=== PATIENT | female | born 1970 | race Caucasian/White ===

== ENCOUNTER 2018-07-19 10:46 | Observation (INO) | payer OTHER ==
[2018-07-19] MEDS ORDERED: Morphine 2 MG/ML SYRINGE ONE (11:17)
[2018-07-19 11:21] LABS: #Basophils 0.1 thou/uL (0.0-0.2); #Eosinphils 0.3 thou/uL (0.0-0.7); #Lymphocytes 3.4 thou/uL (1.20-3.40); #Monocytes 0.7 thou/uL (0.11-0.59); #Neutrophils 5.6 thou/uL (1.40-6.50); %Basophils 0.7 % (0.0-1.0); %Eosinophils 3.2 % (0.0-10.0); %Lymphocytes 33.9 % (21.0-51.0); %Monocytes 6.8 % (0.0-10.0); %Neutrophils 55.5 % (42.0-75.0); Hemoglobin 11.9 g/dL (12.0-16.0); Mean Corpuscular HGB CONC 31.8 g/dL (32.0-36.0); Mean Corpuscular Volume 75.5 fL (78.0-98.0); Mean Platelet Volume 7.2 fL (7.4-10.4); Platelet Count 421 thou/uL (130-400); RBC Distribution Width 14.5 % (11.5-14.5); Red Blood Cell (RBC) Count 4.96 mill/uL (4.20-5.40)
[2018-07-19 11:27] LABS: INR-International Normal Ratio 1.1; PTT 31.7 SEC (22.9-36.1); Prothrombin Time 14.7 SEC (12.0-14.7)
--- NOTE | 2018-07-19 11:45 | ULT ---
Left lower extremity venous Doppler ultrasound: 07/19/2018 COMPARISON: None HISTORY: Left lower extremity pain, assess for DVT TECHNIQUE: Multiplanar grayscale sonographic imaging of the venous structures of the left lower extre mity obtained with color flow and spectral analysis FINDINGS: Left common femoral vein, greater saphenous vein, profunda femoral vein, femoral vein, popl iteal vein, and posterior tibial vein are patent. Normal blood flow, augmentation, and compression within the deep venous system on the left. No evidence for deep venous thrombosis. IMPRESSION: No evidence for deep venous thrombosis of the left lower extremity.
[2018-07-19 11:55] LABS: ALT (SGPT) 21 U/L (8-55); AST (SGOT) 17 U/L (5-34); Albumin 3.2 g/dL (3.5-5.0); Alkaline Phosphatase 151 U/L (40-150); Anion Gap 15 mmol/L (10-20); BUN (Urea Nitrogen) 10 mg/dL (7.0-18.7); Bilirubin, Total 0.6 mg/dL (0.2-1.2); Calc. Creatinine Clearance 0 mL/min (70-130); Calcium 9.3 mg/dL (7.8-10.44); Carbon Dioxide 23 mmol/L (22-29); Chloride 100 mmol/L (98-107); Estimated GFR-MDRD 70; Globulin 4.4 g/dL (2.4-3.5); Glucose 227 mg/dL (70-105); Potassium 4.5 mmol/L (3.5-5.1); Protein, Total 7.6 g/dL (6.0-8.3); Sodium 133 mmol/L (136-145)
[2018-07-19 12:07] LABS: CKMB 1.3 ng/mL (0-6.6)
--- NOTE | 2018-07-19 12:10 | CT ---
CT arteriogram chest with IV contrast and 3-D MIPS imaging HISTORY: Chest pain. Dyspnea. COMPARISON: 10/24/2002. FINDINGS: There is good contrast opacification of the pulmonary arteries and thoracic aorta with norm al origin the great vessels. Postoperative changes of the mediastinum are apparent. Chronic appearing widening of the sternotomy. Calcification in coronary arteries. The somewhat irregular 0.9 cm nodule at the anterior lateral aspect of the right upper lobe is stable compared to the 2003 exam. Old bilateral rib fractures are apparent. At the left posterolateral lung base, peripheral interstitial thickening along the bronchovascular bu ndles has progressed somewhat since the 2003 study. Minimal left pleural fluid. IMPRESSION: No CT evidence of pulmonary embolus. Atherosclerosis. Interval (long-term) increase in prominence of peripheral interstitial thickening at the left posteri or lung base. Right upper lobe peripheral nodule is stable.
[2018-07-19] MEDS ORDERED: Aspirin 325 MG TAB ONE ×2 (13:04→13:07)
--- NOTE | 2018-07-19 13:13 | PDOC.FPRHP ---
- History of Present Illness Chief Complaint: SOB History of Present Illness: 48 yo F with OA, DM1, RA, CAD s/p 3V CABG sent from clinic due to concern for PE. Patient tachycardic in clinic and SOB. Pt has had dry cough for past week, unimproved with OTC meds. Subjective fevers, chills, SOB. Chest pain associated with cough. Also reports rhinorrhea, no facial tenderness. Has a history of RA in which she has been on 5mg prednisone for. Endorses dec po intake, nausea, and emesis x3. Takes all her meds. Denies history of heart failure but had [place] s/p 3V CABG 3 yrs ago. Pt follows with Dr. Fang, hasn't seen him for 3 years. Pt reported she has episode one week ago of L chest pressure associated w/ vomiting. Resolved with taking ASA. Has had recent left lower extremity swelling. In ER was tachycardic, sinus. Received 1L bolus of NS. CTA negative for PE, Dopplers negative for DVT. ED Course: ASA, 1L NS, morphine 2mg CTA neg for PE - Allergies/Adverse Reactions Allergies Allergy/AdvReac Type Severity Reaction Status Date / Time infliximab Allergy Severe Anaphylaxis Verified 08/26/14 17:40 Sulfa (Sulfonamide Allergy Severe Verified 08/26/14 17:40 Antibiotics) sulfamethoxazole Allergy Verified 07/13/15 01:03 [From Bactrim] trimethoprim [From Bactrim] Allergy Verified 07/13/15 01:03 promethazine AdvReac Intermediate Anxiety Verified 07/19/18 20:19 adhesive AdvReac Verified 08/26/14 17:40 - Home Medications Medication Instructions Recorded Confirmed Type Flexeril 10 mg PO Q6H PRN 08/26/12 07/19/18 History predniSONE 5 mg PO BID 08/26/12 07/19/18 History Aspirin [Ecotrin Regular Strength] 325 mg PO DAILY #0 tab 09/05/12 07/19/18 Rx Potassium Chloride [K-Dur] 20 meq PO BID #0 tab 09/05/12 07/19/18 Rx Pregabalin [Lyrica] 200 mg PO BID 09/07/12 07/19/18 History Atorvastatin Calcium [Lipitor] 80 mg PO HS 09/19/13 07/19/18 History Folic Acid 1 mg PO DAILY 09/19/13 07/19/18 History Metoprolol Tartrate [Lopressor] 25 mg PO BID #0 tab 09/23/13 07/19/18 Rx metFORMIN [Glucophage] 500 mg PO BID 08/26/14 07/19/18 History Albuterol Sulfate [Proair HFA] 1 puff INH PRN PRN 07/13/15 07/19/18 History Levothyroxine Sodium 137 mcg PO DAILY #30 tablet 07/14/15 07/19/18 Rx HYDROcodone/Acetaminophen [[place] 1 - 2 each PO Q6HR PRN 07/19/18 07/19/18 History 10-325 Tablet] Amoxicillin/Potassium Clav 875 mg PO Q12HR #5 tab 07/21/18 Rx [Augmentin] Aspirin [Ecotrin Regular Strength] 325 mg PO DAILY tab 07/21/18 Rx Atorvastatin Calcium [Lipitor] 40 mg PO HS tab 07/21/18 Rx Benzonatate [Tessalon] 100 mg PO Q4H PRN cap 07/21/18 Rx Benzonatate [Tessalon] 100 mg PO TID PRN #90 cap 07/21/18 Rx - History PMHx: RA, DM1 on insulin pump, CAD s/p 3V CABG, PVD PSHx: right toe amputation FHx: DM1, rheumatoid arthritis Social: denies t/e/d - Review of Systems General: reports: fever/chills, weight/appetite/sleep changes Eyes: denies: eye pain, vision changes ENT: reports: nasal congestion, rhinorrhea Respiratory: reports: cough, shortness of breath. denies: congestion Cardiovascular: reports: chest pain, edema (of LLE). denies: palpitation, paroxysmal nocturnal dyspnea Gastrointestinal: reports: nausea, vomiting. denies: diarrhea, constipation, abdominal pain, GI bleeding Genitourinary: denies: incontinence, dysuria Skin: reports: rashes (facial). denies: itching Musculoskeletal: reports: pain, tenderness, arthritis/arthralgias Neurological: reports: weakness - Vital signs BP: 115/68, Pulse: 135, Resp: 16, Pain: 8, O2 sat: 98 on Room Air, Time: 07/19/2018 12:00. - Physical Exam Constitutional: awake, alert and oriented -Constitutional: in mild distress HEENT: normocephalic and atraumatic, PERRLA, EOMI, other (erythematous boggy nasal mucosa) -HEENT: dry mucosal membranes Neck: supple, FROM, trachea midline -Chest: tender to palpation, no lesions Heart: normal S1/S2, no murmurs/rubs/gallops -Heart: tachycardic Lungs: CTAB, no respiratory distress, good air movement, no wheezing Abdomen: soft, non-tender, bowel sounds present, no masses/distention Musculoskeletal: normal structure, normal tone Neurological: no focal deficit, CN II-XII intact -Skin: facial maxillary rash Heme/Lymphatic: no purpura, no petechia Psychiatric: good judgment and insight FMR H&P: Results - Labs Result Diagrams: 07/21/18 04:43 07/21/18 04:43 Lab results: WBC 10.0 thou/uL (4.8-10.8) 07/19/18 11:13 Hgb 11.9 g/dL (12.0-16.0) L 07/19/18 11:13 Hct 37.5 % (36.0-47.0) 07/19/18 11:13 MCV 75.5 fL (78.0-98.0) L 07/19/18 11:13 Plt Count 421 thou/uL (130-400) H 07/19/18 11:13 Neutrophils % 55.5 % (42.0-75.0) 07/19/18 11:13 Sodium 133 mmol/L (136-145) L 07/19/18 11:01 Potassium 4.5 mmol/L (3.5-5.1) 07/19/18 11:01 Chloride 100 mmol/L (98-107) 07/19/18 11:01 Carbon Dioxide 23 mmol/L (22-29) 07/19/18 11:01 BUN 10 mg/dL (7.0-18.7) 07/19/18 11:01 Creatinine 0.86 mg/dL (0.6-1.1) 07/19/18 11:01 Glucose 227 mg/dL (70-105) H 07/19/18 11:01 Calcium 9.3 mg/dL (7.8-10.44) 07/19/18 11:01 Total Bilirubin 0.6 mg/dL (0.2-1.2) 07/19/18 11:01 AST 17 U/L (5-34) 07/19/18 11:01 ALT 21 U/L (8-55) 07/19/18 11:01 Alkaline Phosphatase 151 U/L (40-150) H 07/19/18 11:01 CK-MB (CK-2) 1.3 ng/mL (0-6.6) 07/19/18 11:02 Serum Total Protein 7.6 g/dL (6.0-8.3) 07/19/18 11:01 Albumin 3.2 g/dL (3.5-5.0) L 07/19/18 11:01 - EKG Interpretation EKG: sinus tachycardia - Radiology Interpretation Other Status: report reviewed by me Additional comment: CTA negative for PE Right upper peripheral love nodule 0.9cm (stable compared to prior 2002 imaging) US - venous Status: report reviewed by me Additional comment: negative for DVT FMR H&P: A/P - Problem List (1) SOB (shortness of breath) Status: Acute Code(s): R06.02 - SHORTNESS OF BREATH (2) Elevated troponin Status: Acute Code(s): R74.8 - ABNORMAL LEVELS OF OTHER SERUM ENZYMES (3) Anxiety Status: Acute Code(s): F41.9 - ANXIETY DISORDER, UNSPECIFIED (4) Chronic pain Status: Acute Code(s): G89.29 - OTHER CHRONIC PAIN (5) 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 Status: Acute Code(s): H16.031 - CORNEAL ULCER WITH HYPOPYON, RIGHT EYE (6) Diabetes mellitus type 1 Status: Acute (7) Arthritis, rheumatoid Status: Chronic Code(s): M06.9 - RHEUMATOID ARTHRITIS, UNSPECIFIED (8) Coronary artery disease Status: Chronic Code(s): I25.10 - ATHSCL HEART DISEASE OF [place] CORONARY ARTERY W/O ANG PCTRS (9) GERD (gastroesophageal reflux disease) Status: Chronic Code(s): K21.9 - GASTRO-ESOPHAGEAL REFLUX DISEASE WITHOUT ESOPHAGITIS (10) Hx of CABG Status: Chronic (11) Hyperlipemia Status: Chronic Code(s): E78.5 - HYPERLIPIDEMIA, UNSPECIFIED (12) Hypertension Status: Chronic Code(s): I10 - ESSENTIAL (PRIMARY) HYPERTENSION (13) Hypothyroidism Status: Chronic Code(s): E03.9 - HYPOTHYROIDISM, UNSPECIFIED (14) Chest pain Status: Acute Code(s): R07.9 - CHEST PAIN, UNSPECIFIED - Plan 48 yo F with DM1, rheumatoid arthritis, OA, fibromyaglia here for typical chest pain, SOB #Typical chest pain -MSK vs. ACS r/o -EKG with no acute change, sinus tachycardia. Indeterminate troponin 0.1, continue to trend -HEART score 5, admit for ACS r/o -NST in AM since been ~3 yrs since last -Pending results can consult cardiology #Dehydration, mild -sinus tachycardia -will give 1 L bolus, if still dehydrated can start mIVF -continue to monitor #Sinus tachycardia -HR improved after 1L bolus -clinically dry, see plan above #Sinusitis -purulent drainage on exam -fever in hx -no WBC or fever but also immunosuppressed -Procal negative -daily CBC, monitor vitalsx #Subacute dry cough -post nasal drip vs. GERD vs. CHF exacerbation -Will obtain BNP, TTE if elevated -CT chest with no pleural effusions, u/l extremity swelling -flu swab, already on oral steroids so no intranasal steroids -zyrtec for congestion, tessalon perles for cough -since chronically immunosuppressed, consider respiratory fungal organism- sputum cultures -no WBC but immunosuppressed, obtain procal #LLE u/l swelling -rheumatoid flare up vs. OA vs. CHF exacerbation -dopplers neg for DVT -continue to monitor #Rheumatoid Arthritis -resume PO steroids, give stress dose now 15mg -continue daily 5mg -norco for pain #Fibromyalgia -resume home meds dvt ppx: lovenox gi ppx: pantoprazole Abx: Augmentin PCP : gil Dispo: <2 midnights Discussed w/ Dr. Estrada FMR H&P: Upper Level - Pertinent history 48 yo WF PMH RA and CAD. Present from clinic with CC of chest pain and worsening SOB. Patient is wheel chair bound and was concerned for PE. patient states she has had URI sx for the past several days and has been coughing. States it feels like an RA flair. ER: labs, EKG, CTA-Chest, lower extremity US, ASA, morphine, NS - Pertinent findings Vitals: pulse 113, Otherwise WNL GEN: Mild pain, A&Ox4 CV: Tachy, regular Pulm: CTA-B Labs: Trop 0.15->0.14, CTA Chest: No PE Venous doppler: No DVT EKG: Sinus tachycardia - Plan Date/Time: 07/19/18 1310 I, Richard Jiang MD, have evaluated this patient and agree with findings/plan as outlined by internet project manager resident. Pertinent changes/additions are listed here. 1. Atypical chest pain r/o ACS: trend trop x3, check BNP, check TTE if elevated , NM stress test. No PE on exam. continue ASA. No signs of infection. 2. Possible bacterial sinusitis: start augmentin 3. Rheumatoid arthritis: Stress dose steroids. home norco. Diet: HH, NPO at 0000 PPx: lovenox CODE: FULL Dispo: obs, tele, <2 midnights. Addendum - Attending - Attending Attestation Date/Time: 07/22/18 1038 I personally evaluated the patient and discussed the management with Dr. Shelby on 07/19/2018 at time of admission. I agree with the History, Examination, Assessment and Plan documented above with any addition or exceptions noted below.
[2018-07-19] MEDS ORDERED: Ondansetron ODT 4 MG TAB PO PRN (15:13)
[2018-07-19] MEDS ORDERED: Dextrose 50% Abboject 50 ML SYRINGE SLOW IVP PRN (15:19)
[2018-07-19] MEDS ORDERED: Dextrose 5% in Water 1,000 ML IV PRN (15:19)
[2018-07-19 15:29] LABS: Troponin I 0.144 ng/mL (< 0.028)
[2018-07-19] MEDS ORDERED: predniSONE 20 MG TAB PO ONE ×2 (16:34→17:07)
[2018-07-19] MEDS ORDERED: ISOVUE-370 76%-LOCM 1 ML ONE (17:03)
[2018-07-19] MEDS ORDERED: predniSONE 20 MG TAB PO SCH (17:07)
[2018-07-19] MEDS ORDERED: Lactated Ringer's 1,000 ML IV SCH (17:15)
[2018-07-19 18:14] LABS: Troponin I 0.139 ng/mL (< 0.028)
[2018-07-19 18:15] LABS: Cardiac Risk 4.2 (Less than 4.5)
[2018-07-19] MEDS ORDERED: HYDROcodone/Acetaminophen 10/325 mg Tablet PO PRN (18:53)
[2018-07-19] MEDS ORDERED: Cyclobenzaprine 10 MG TAB PO SCH (19:00)
[2018-07-19 19:04] VITALS: BMI 47.4
[2018-07-19] MEDS: Benzonatate 100 MG CAP PO PRN ×2 (19:57→23:57)
[2018-07-19] MEDS: Amoxicillin/Potassium Clav 875 MG TAB PO SCH (19:57)
[2018-07-19] MEDS: Atorvastatin Calcium 40 MG TAB PO SCH (19:57)
[2018-07-19] MEDS: Pregabalin 50 MG CAP PO SCH (19:58)
[2018-07-19 20:10] LABS: Hemoglobin A1c 8.6 % (4.0-6.0)
[2018-07-19] MEDS ORDERED: Famotidine 20 MG TAB PO SCH (21:00)
[2018-07-20] MEDS ORDERED: Sodium Chloride 0.9% 500 ML IVPB SCH (00:45)
[2018-07-20] MEDS ORDERED: Metoprolol Tartrate 25 MG TAB PO SCH (01:30)
[2018-07-20] MEDS ORDERED: Metoprolol Tartrate 5 MG/5 ML VIAL IVP SCH (03:00)
[2018-07-20] MEDS: Benzonatate 100 MG CAP PO PRN ×4 (04:47→20:20)
[2018-07-20] MEDS: Levothyroxine 150 MCG TAB PO SCH (04:47)
--- NOTE | 2018-07-20 06:15 | PDOC.FM ---
- Subjective Subjective: NAEO. Patient resting comfortably in bed. No complaints offered. Patient's at the bedside who stated that she slept well and was no longer having any chest pain or discomfort. - Objective MAR Reviewed: Yes Vital Signs & Weight: Vital Signs (12 hours) Temp Pulse Resp BP Pulse Ox 07/20/18 03:14 115 H 110/58 L 07/20/18 03:06 97.1 F L 128 H 20 122/66 94 L 07/19/18 23:49 97.7 F 134 H 16 125/64 93 L 07/19/18 18:15 98.1 F 141 H 20 117/72 99 Weight Weight 125.328 kg Result Diagrams: 07/20/18 07:32 07/20/18 07:32 Phys Exam - Physical Examination Constitutional: NAD HEENT: PERRLA, moist MMs Neck: full ROM Respiratory: clear to auscultation bilateral Cardiovascular: RRR Gastrointestinal: soft, non-tender, no distention Musculoskeletal: no edema Neurological: moves all 4 limbs Psychiatric: normal affect, A&O x 3 Skin: no rash, normal turgor, cap refill <2 seconds Dx/Plan (1) Chest pain Code(s): R07.9 - CHEST PAIN, UNSPECIFIED Status: Acute (2) Elevated troponin Code(s): R74.8 - ABNORMAL LEVELS OF OTHER SERUM ENZYMES Status: Acute (3) SOB (shortness of breath) Code(s): R06.02 - SHORTNESS OF BREATH Status: Acute (4) Amputated toe Code(s): Z89.429 - ACQUIRED ABSENCE OF OTHER TOE(S), UNSPECIFIED SIDE Status: Acute (5) Chronic pain Code(s): G89.29 - OTHER CHRONIC PAIN Status: Acute (6) Diabetes mellitus type 1 Status: Acute (7) Fibromyalgia Status: Chronic (8) GERD (gastroesophageal reflux disease) Code(s): K21.9 - GASTRO-ESOPHAGEAL REFLUX DISEASE WITHOUT ESOPHAGITIS Status: Chronic (9) History of coronary artery disease Code(s): Z86.79 - PERSONAL HISTORY OF OTHER DISEASES OF THE CIRCULATORY SYSTEM Status: Chronic (10) Hx of CABG Status: Chronic (11) Hyperlipemia Code(s): E78.5 - HYPERLIPIDEMIA, UNSPECIFIED Status: Chronic (12) Hypertension Code(s): I10 - ESSENTIAL (PRIMARY) HYPERTENSION Status: Chronic (13) Hypothyroidism Code(s): E03.9 - HYPOTHYROIDISM, UNSPECIFIED Status: Chronic - Plan Plan: 48 yo F with DM1, rheumatoid arthritis, OA, fibromyaglia here for typical chest pain, SOB Typical chest pain MSK vs. ACS r/o. EKG with no acute change, sinus tachycardia. HEART score 5 - Indeterminate troponin 0.158 -> 0.139 - NST in AM since been ~3 yrs since last - Pending results can consult cardiology Dehydration, mild - sinus tachycardia - s/p 1 L bolus, will start mIVF - continue to monitor Sinus tachycardia - s/p 1L bolus - clinically dry, see plan above Sinusitis - Purulent drainage on exam - Fever in hx - no WBC or fever but also immunosuppressed - Procal negative - daily CBC, monitor vitals - Augmentin started 07/19 Subacute dry cough Post nasal drip vs. GERD vs. CHF exacerbation - Will obtain BNP 513, TTE pending - CT chest with no pleural effusions, u/l extremity swelling - Flu swab positive, already on oral steroids so no intranasal steroids - Zyrtec for congestion, tessalon perles for cough - no WBC but immunosuppressed; Procal neg (0.05) LLE u/l swelling Rheumatoid flare up vs. OA vs. CHF exacerbation - dopplers neg for DVT - continue to monitor Rheumatoid Arthritis - Resume PO steroids, s/p stress dose of steroids - Continue daily 5mg - [place] for pain Fibromyalgia - resume home meds dvt ppx: lovenox gi ppx: pantoprazole Abx: Augmentin PCP: Paul Dispo: <2 midnights Addendum - Attending - Attending Attestation Date/Time: 07/20/18 1043 I personally evaluated the patient and discussed the management with Dr. Vegas. I agree with the History, Examination, Assessment and Plan documented above with any addition or exceptions noted below. The paitent is fluB positive. chest pain is improved. Will get stress test today and if negative can go home.
[2018-07-20] MEDS ORDERED: HumaLOG 300 UNITS/3 ML VIAL SC PRN (06:18)
[2018-07-20] MEDS ORDERED: Lactated Ringer's 1,000 ML IV SCH (07:45)
[2018-07-20 07:51] LABS: #Monocytes 0.4 thou/uL (0.11-0.59); #Neutrophils 4.4 thou/uL (1.40-6.50); %Basophils 0.1 % (0.0-1.0); %Eosinophils 0.2 % (0.0-10.0); %Lymphocytes 28.9 % (21.0-51.0); %Monocytes 6.5 % (0.0-10.0); %Neutrophils 64.4 % (42.0-75.0); Hemoglobin 10.3 g/dL (12.0-16.0); Mean Corpuscular HGB CONC 31.5 g/dL (32.0-36.0); Mean Corpuscular Hemoglobin 23.7 pg (27.0-31.0); Mean Corpuscular Volume 75.3 fL (78.0-98.0); Mean Platelet Volume 7.2 fL (7.4-10.4); Platelet Count 376 thou/uL (130-400); RBC Distribution Width 14.4 % (11.5-14.5); Red Blood Cell (RBC) Count 4.34 mill/uL (4.20-5.40); White Blood Cell (WBC) Count 6.8 thou/uL (4.8-10.8)
[2018-07-20 08:05] LABS: Anion Gap 10 mmol/L (10-20); BUN (Urea Nitrogen) 10 mg/dL (7.0-18.7); Calc. Creatinine Clearance 175 mL/min (70-130); Calcium 9.1 mg/dL (7.8-10.44); Carbon Dioxide 28 mmol/L (22-29); Chloride 103 mmol/L (98-107); Estimated GFR-MDRD 81; Glucose 235 mg/dL (70-105); Potassium 4.3 mmol/L (3.5-5.1); Sodium 137 mmol/L (136-145)
[2018-07-20] MEDS: Furosemide 40 MG TAB PO SCH (09:30)
[2018-07-20] MEDS: Aspirin 325 mg Enteric Coated Tablet PO SCH (09:30)
[2018-07-20] MEDS: predniSONE 5 MG TAB PO SCH (09:30)
[2018-07-20] MEDS: Amoxicillin/Potassium Clav 875 MG TAB PO SCH ×2 (09:30→20:21)
[2018-07-20] MEDS: Pregabalin 50 MG CAP PO SCH ×2 (09:30→20:21)
[2018-07-20] MEDS: Metoprolol Tartrate 25 MG TAB PO SCH ×3 (09:32→20:20)
[2018-07-20] MEDS: Enoxaparin Sodium 40 MG/0.4 ML SYRINGE SC SCH (09:32)
[2018-07-20] MEDS: metFORMIN 500 MG TAB PO SCH ×2 (09:32→16:47)
[2018-07-20] MEDS: Fluticasone Propionate Nasal Spray 16 gm Bottle NASAL SCH (09:53)
[2018-07-20] MEDS: Loratadine 5 MG/5 ML UDCUP PO SCH (09:53)
[2018-07-20] MEDS: Atorvastatin Calcium 40 MG TAB PO SCH (20:21)
[2018-07-20] MEDS ORDERED: Venlafaxine XR 37.5 MG CAP PO SCH (21:00)
[2018-07-21] MEDS: Levothyroxine 150 MCG TAB PO SCH (03:55)
[2018-07-21] MEDS: Benzonatate 100 MG CAP PO PRN ×2 (03:57→11:50)
[2018-07-21 05:24] LABS: #Basophils 0.1 thou/uL (0.0-0.2); #Eosinphils 0.3 thou/uL (0.0-0.7); #Lymphocytes 3.3 thou/uL (1.20-3.40); #Monocytes 0.7 thou/uL (0.11-0.59); #Neutrophils 4.4 thou/uL (1.40-6.50); %Basophils 0.9 % (0.0-1.0); %Eosinophils 3.6 % (0.0-10.0); %Lymphocytes 37.7 % (21.0-51.0); %Monocytes 7.7 % (0.0-10.0); %Neutrophils 50.1 % (42.0-75.0); Hemoglobin 10.1 g/dL (12.0-16.0); Mean Corpuscular HGB CONC 30.4 g/dL (32.0-36.0); Mean Corpuscular Volume 75.7 fL (78.0-98.0); Mean Platelet Volume 7.6 fL (7.4-10.4); Platelet Count 396 thou/uL (130-400); RBC Distribution Width 14.5 % (11.5-14.5); White Blood Cell (WBC) Count 8.7 thou/uL (4.8-10.8)
[2018-07-21 05:52] LABS: Anion Gap 13 mmol/L (10-20); BUN (Urea Nitrogen) 15 mg/dL (7.0-18.7); Calc. Creatinine Clearance 159 mL/min (70-130); Calcium 8.8 mg/dL (7.8-10.44); Carbon Dioxide 27 mmol/L (22-29); Chloride 100 mmol/L (98-107); Estimated GFR-MDRD 71; Glucose 236 mg/dL (70-105); Potassium 3.9 mmol/L (3.5-5.1); Sodium 136 mmol/L (136-145)
--- NOTE | 2018-07-21 06:27 | PDOC.FM ---
- Subjective Subjective: NAEO. Patient resting comfortably in bed. No complaints or concerns. Patient was unable to complete stress test today and will complete today. Patient is wanting to go home as she feels fine and her daughter is in town visiting. - Objective MAR Reviewed: Yes Vital Signs & Weight: Vital Signs (12 hours) Temp Pulse Resp BP Pulse Ox 07/21/18 03:53 97.4 F L 84 20 104/53 L 94 L 07/21/18 03:12 94 L 07/20/18 19:24 97.8 F 88 16 128/61 94 L Weight Admit Weight 125.328 kg Weight 127.596 kg I&O: 07/19/18 07/20/18 07/21/18 06:59 06:59 06:59 Intake Total 1140 1380 Output Total 700 700 Balance 440 680 Result Diagrams: 07/21/18 04:43 07/21/18 04:43 Phys Exam - Physical Examination Constitutional: NAD HEENT: moist MMs Neck: supple, full ROM Respiratory: clear to auscultation bilateral Cardiovascular: RRR, no significant murmur Gastrointestinal: soft, non-tender, no distention, positive bowel sounds Musculoskeletal: pulses present trace edema on LLE to level of ankle Neurological: non-focal, moves all 4 limbs Psychiatric: normal affect, A&O x 3 Skin: no rash, normal turgor Dx/Plan (1) Chest pain Code(s): R07.9 - CHEST PAIN, UNSPECIFIED Status: Acute (2) Elevated troponin Code(s): R74.8 - ABNORMAL LEVELS OF OTHER SERUM ENZYMES Status: Acute (3) SOB (shortness of breath) Code(s): R06.02 - SHORTNESS OF BREATH Status: Acute (4) Amputated toe Code(s): Z89.429 - ACQUIRED ABSENCE OF OTHER TOE(S), UNSPECIFIED SIDE Status: Acute (5) Chronic pain Code(s): G89.29 - OTHER CHRONIC PAIN Status: Acute (6) Diabetes mellitus type 1 Status: Acute (7) Fibromyalgia Status: Chronic (8) GERD (gastroesophageal reflux disease) Code(s): K21.9 - GASTRO-ESOPHAGEAL REFLUX DISEASE WITHOUT ESOPHAGITIS Status: Chronic (9) History of coronary artery disease Code(s): Z86.79 - PERSONAL HISTORY OF OTHER DISEASES OF THE CIRCULATORY SYSTEM Status: Chronic (10) Hx of CABG Status: Chronic (11) Hyperlipemia Code(s): E78.5 - HYPERLIPIDEMIA, UNSPECIFIED Status: Chronic (12) Hypertension Code(s): I10 - ESSENTIAL (PRIMARY) HYPERTENSION Status: Chronic (13) Hypothyroidism Code(s): E03.9 - HYPOTHYROIDISM, UNSPECIFIED Status: Chronic - Plan Plan: 48 yo F with DM1, rheumatoid arthritis, OA, fibromyaglia here for typical chest pain, SOB Typical chest pain MSK vs. ACS r/o. EKG with no acute change, sinus tachycardia. HEART score 5 - Indeterminate troponin 0.158 -> 0.139 - NST in AM; been ~3 yrs since last - to be completed today - Pending results can consult cardiology Dehydration, mild - sinus tachycardia - s/p 1 L bolus, will start mIVF - continue to monitor Sinus tachycardia - s/p 1L bolus - clinically dry, see plan above Sinusitis - Purulent drainage on exam - Fever in hx - no WBC or fever but also immunosuppressed - Procal negative - daily CBC, monitor vitals - Augmentin started 07/19 Subacute dry cough Post nasal drip vs. GERD vs. CHF exacerbation - Will obtain BNP 513, TTE: technically difficult, EF mildly depressed, ant. wall and apex hypokinetic; mild-mod MR/TR - CT chest with no pleural effusions, u/l extremity swelling - Flu swab positive, already on oral steroids so no intranasal steroids - Zyrtec for congestion, tessalon perles for cough - no WBC but immunosuppressed; Procal neg (0.05) LLE u/l swelling Rheumatoid flare up vs. OA vs. CHF exacerbation - dopplers neg for DVT - continue to monitor Rheumatoid Arthritis - Resume PO steroids, s/p stress dose of steroids - Continue daily 5mg - [place] for pain Fibromyalgia - resume home meds Type 1 DM, uncontrolled - patient has insulin pump dvt ppx: lovenox gi ppx: pantoprazole Abx: Augmentin PCP: Paul Dispo: likely dc home after stress today Addendum - Attending - Attending Attestation Date/Time: 07/21/18 0814 I personally evaluated the patient and discussed the management with Dr. Vegas. I agree with the History, Examination, Assessment and Plan documented above with any addition or exceptions noted below. Patient remains free of chest pain. 2nd part of stress test today. Echo shows decrease in EF but not EF was given as it was a difficult study. If stress is normal she can likely f/u with Dr. Fang as an outpt.
[2018-07-21] MEDS: metFORMIN 500 MG TAB PO SCH (09:15)
[2018-07-21] MEDS: Metoprolol Tartrate 25 MG TAB PO SCH (09:16)
[2018-07-21] MEDS: predniSONE 5 MG TAB PO SCH (09:17)
[2018-07-21] MEDS: Amoxicillin/Potassium Clav 875 MG TAB PO SCH (09:17)
[2018-07-21] MEDS: Pregabalin 50 MG CAP PO SCH (09:18)
[2018-07-21] MEDS: Furosemide 40 MG TAB PO SCH (09:22)
[2018-07-21] MEDS: Aspirin 325 mg Enteric Coated Tablet PO SCH (09:22)
[2018-07-21] MEDS: Fluticasone Propionate Nasal Spray 16 gm Bottle NASAL SCH (09:23)
[2018-07-21] MEDS: Enoxaparin Sodium 40 MG/0.4 ML SYRINGE SC SCH (09:23)
[2018-07-21] MEDS: Loratadine 5 MG/5 ML UDCUP PO SCH (09:23)
[2018-07-21] MEDS ORDERED: ADENOSINE 60 MG/20 ML VIAL ONE (10:38)
[2018-07-21 11:42] VITALS: BP 117/71; TEMP 97.9
--- NOTE | 2018-07-21 15:12 | NM ---
CARDIAC SPECT: HISTORY: A 48-year-old female with chest pain, hypertension, coronary artery disease, diabetes, CABG, hypercho lesterolemia. TECHNIQUE: A myocardial perfusion scan was performed using the single-isotope 2-day protocol with 32 Technetium 99m sestamibi injected intravenously for the rest and stress images. Pharmacologic stress with adeno sine is monitored and interpreted by Lili Guerrero PA-C. FINDINGS: A fixed defect is seen in the anterior wall. No reversible defects are seen. GATED SPECT LVEF: 47%. WALL MOTION EXAM: Anterior wall hypokinesis. IMPRESSION: No evidence of reversible ischemia. POS: VON
--- NOTE | 2018-07-21 18:04 | EKG ---
Test Reason : STAT Blood Pressure : / mmHG Vent. Rate : 138 BPM Atrial Rate : 141 BPM P-R Int : 000 ms QRS Dur : 110 ms QT Int : 346 ms P-R-T Axes : 000 -55 076 degrees QTc Int : 524 ms Supraventricular tachycardia Left anterior fascicular block Possible Anterolateral infarct (cited on or before 14-MAR-2011) Abnormal ECG When compared with ECG of 13-JUL-2015 04:37, Left anterior fascicular block is now Present Questionable change in initial forces of Lateral leads Non-specific change in ST segment in Inferior leads T wave inversion no longer evident in Inferior leads Nonspecific T wave abnormality has replaced inverted T waves in Lateral leads Confirmed by Birgit NANCE ([id number]) on 07/21/2018 6:04:09 PM Referred By: Tanvir ROB Confirmed By:Birgit NANCE
--- NOTE | 2018-07-22 01:37 | DIS ---
DATE OF ADMISSION: 07/19/2018 DATE OF DISCHARGE: 07/21/2018 RESIDENT: Orly Vegas MD ADMITTING ATTENDING: Prashanth Estrada MD DISCHARGE ATTENDING: Jayda Conrad MD. CONSULTS: None. PROCEDURES: None. PRIMARY DIAGNOSES: 1. Typical chest pain. 2. Mild dehydration. 3. Sinus tachycardia. 4. Sinusitis. 5. Subacute dry cough. 6. Left lower extremity swelling. SECONDARY DIAGNOSES: 1. Rheumatoid arthritis. 2. Fibromyalgia. 3. Type 1 diabetes, uncontrolled. DISCHARGE MEDICATIONS: 1. Lipitor 40 mg oral at bedtime. 2. Tessalon 100 mg oral every 4 hours as needed. 3. Augmentin 875 mg oral every 12 hours. 4. Aspirin 325 mg oral daily. 5. Flexeril 10 mg oral every 6 hours as needed. 6. Prednisone 5 mg oral twice daily. 7. K-Dur 20 mEq oral twice daily. 8. Lyrica 200 mg oral twice daily. 9. Folic acid 1 mg oral daily. 10. Lopressor 25 mg oral twice daily. 11. Metformin 500 mg oral twice daily. 12. Albuterol sulfate one puff inhalation as needed. 13. Levothyroxine 137 mcg oral daily. 14. [place] 10/325, 1 to 2 tabs oral every 6 hours as needed. DISCONTINUED MEDICATIONS: None. HISTORY OF PRESENT ILLNESS/HOSPITAL COURSE: This is a 48-year-old female with a past medical history of rheumatoid arthritis, type 1 diabetes uncontrolled, coronary artery disease status post 3-vessel CABG, who was sent from the clinic due to concern for PE. The patient was tachycardic in clinic and short of breath. The patient also endorsed a dry cough for the last week that has not improved [id number] medications. The patient endorsed subjective fevers, chills, and shortness of breath. The patient also endorsed chest pain. In the ER, the patient was tachycardic, sinus rhythm. The patient received a 1 L bolus of normal saline. CTA was negative for PE and Dopplers were negative for DVT. In the ED, the patient was also given aspirin and morphine. The patient was admitted to [facility] for a chest pain workup. The patient initially had an indeterminate troponin that downtrended throughout her stay. She had a heart score of 5 on admission. The patient had a stress test performed that was negative for any ischemia. The patient also had an echo performed that was a technically difficult exam with poor endocardial definition in limited views. The ejection fraction did appear to be mildly depressed with distal anterior wall and apex hypokinesia. There was also [id number] mitral and tricuspid regurg present. The patient was also found to have acute sinusitis being started on Augmentin. Her procalcitonin was negative and her white count remained within normal limits during her stay. The patient was swabbed for the flu and found to be positive. The patient was given a stress dose of steroids due to her rheumatoid arthritis on admission. The patient was encouraged to continue Zyrtec for congestion and Tessalon Perles for cough during her stay in the outpatient. The patient stated that she had improvement of her chest pain over her stay and was feeling better on day of discharge. She was requesting to go home. DISPOSITION: Stable. DISCHARGE INSTRUCTIONS: 1. Location: Home. 2. Diet: Diabetic diet. 3. Activity: Ad yamila. 4. Followup: Follow up with PCP at [facility] within 1 week. Job ID: [id number] [facility]
== END 2018-07-21 16:23 | disposition home or self-care (01) ==
LOC: ERS 10:46 → 2SW 18:58
PROVIDERS: ADMIT Family Medicine; ATTEND Family Medicine
DX: R07.89 Other chest pain (principal); E86.0 Dehydration; J32.9 Chronic sinusitis, unspecified; R22.42 Localized swelling, mass and lump, left lower limb; M06.9 Rheumatoid arthritis, unspecified; M79.7 Fibromyalgia; E10.9 Type 1 diabetes mellitus without complications; M19.90 Unspecified osteoarthritis, unspecified site; I25.10 Atherosclerotic heart disease of native coronary artery without angina pectoris; R74.8 Abnormal levels of other serum enzymes; H16.031 Corneal ulcer with hypopyon, right eye; K21.9 Gastro-esophageal reflux disease without esophagitis; E03.9 Hypothyroidism, unspecified; R91.1 Solitary pulmonary nodule; I25.2 Old myocardial infarction; Z79.82 Long term (current) use of aspirin; Z79.84 Long term (current) use of oral hypoglycemic drugs; Z79.899 Other long term (current) drug therapy; Z88.2 Allergy status to sulfonamides; Z88.8 Allergy status to other drugs, medicaments and biological substances; Z91.048 Other nonmedicinal substance allergy status; Z95.1 Presence of aortocoronary bypass graft; Z96.41 Presence of insulin pump (external) (internal)
CPT/HCPCS: 36415; 36416; 71275; 78452; 80048; 80053; 80061; 82553; 83036; 83880; 84145; 84484; 85025; 85610; 85730; 87804; 93005; 93010; 93017; 93306; 94760; 96361; 96372; 96374; 96375; A9500; G0378; J0153; J1650; J2270; J7512; Q9966

== ENCOUNTER 2018-08-16 15:49 | Inpatient (IN) | payer OTHER ==
[2018-08-16 16:24] LABS: #Eosinphils 0.3 thou/uL (0.0-0.7); #Lymphocytes 2.2 thou/uL (1.20-3.40); #Monocytes 0.2 thou/uL (0.11-0.59); #Neutrophils 7.5 thou/uL (1.40-6.50); %Eosinophils 2.8 % (0.0-10.0); %Lymphocytes 21.4 % (21.0-51.0); %Monocytes 1.6 % (0.0-10.0); %Neutrophils 74.1 % (42.0-75.0); Hemoglobin 12.4 g/dL (12.0-16.0); Mean Corpuscular HGB CONC 30.3 g/dL (32.0-36.0); Mean Corpuscular Hemoglobin 22.5 pg (27.0-31.0); Mean Corpuscular Volume 74.2 fL (78.0-98.0); Mean Platelet Volume 7.4 fL (7.4-10.4); Platelet Count 342 thou/uL (130-400); Red Blood Cell (RBC) Count 5.52 mill/uL (4.20-5.40); White Blood Cell (WBC) Count 10.1 thou/uL (4.8-10.8)
[2018-08-16 16:43] LABS: Hypochromia SLIGHT = 6-15 cells (100X) (0-5/hpf); MDiff Complete? YES; Microcytosis SLIGHT = 6-15 cells (100X) (0-5/hpf); Platelet Morphology Comment Appears Adequate; Polychromasia SLIGHT = 2-3 cells (100X) (0-2/hpf)
[2018-08-16 16:46] LABS: ALT (SGPT) 16 U/L (8-55); AST (SGOT) 17 U/L (5-34); Albumin 3.3 g/dL (3.5-5.0); Alkaline Phosphatase 130 U/L (40-150); Anion Gap 13 mmol/L (10-20); BUN (Urea Nitrogen) 11 mg/dL (7.0-18.7); Bilirubin, Total 0.7 mg/dL (0.2-1.2); Calc. Creatinine Clearance 0 mL/min (70-130); Calcium 9.3 mg/dL (7.8-10.44); Carbon Dioxide 25 mmol/L (22-29); Chloride 100 mmol/L (98-107); Estimated GFR-MDRD 65; Globulin 4.3 g/dL (2.4-3.5); Glucose 330 mg/dL (70-105); Potassium 4.7 mmol/L (3.5-5.1); Protein, Total 7.6 g/dL (6.0-8.3); Sodium 133 mmol/L (136-145)
--- NOTE | 2018-08-16 16:59 | PDOC.FPRHP ---
- History of Present Illness Chief Complaint: Palpitations History of Present Illness: Ms Cagle is a 48yo female with pmh of fibromyalgia, DM, hypothyroidism, HTN, RA presenting from [facility] clinic after she was found to have HR sustained in 150' s. She was asymptomatic. Found to be in Atrial flutter in the ER. Reports associated generalized weakness and transient dizziness upon standing. Denies any decreased PO intake but does report nausea. Hospitalized about a month ago for tachycardia. Found to have influenza, at discharge HR within normal range. Endorses fever and chills, has at baseline 2/2 RA. PCP: Dr Huff ([facility]) ED Course: Found to be in Atrial Flutter. 1L NaCl. Started on Diltiazem gtt. - Allergies/Adverse Reactions Allergies Allergy/AdvReac Type Severity Reaction Status Date / Time infliximab Allergy Severe Anaphylaxis Verified 08/16/18 21:04 Sulfa (Sulfonamide Allergy Severe Verified 08/16/18 21:04 Antibiotics) sulfamethoxazole Allergy Verified 08/16/18 21:04 [From Bactrim] trimethoprim [From Bactrim] Allergy Verified 08/16/18 21:04 promethazine AdvReac Intermediate Anxiety Verified 08/16/18 21:04 adhesive AdvReac Verified 08/16/18 21:04 - Home Medications Medication Instructions Recorded Confirmed Type predniSONE 5 mg PO BID 08/26/12 08/16/18 History Aspirin [Ecotrin Regular Strength] 325 mg PO DAILY #0 tab 09/05/12 08/16/18 Rx Potassium Chloride [K-Dur] 20 meq PO BID #0 tab 09/05/12 08/16/18 Rx Pregabalin [Lyrica] 200 mg PO BID 09/07/12 08/16/18 History Atorvastatin Calcium [Lipitor] 80 mg PO HS 09/19/13 08/16/18 History Folic Acid 1 mg PO DAILY 09/19/13 08/16/18 History Metoprolol Tartrate [Lopressor] 25 mg PO BID #0 tab 09/23/13 08/16/18 Rx metFORMIN [Glucophage] 500 mg PO BID 08/26/14 08/16/18 History Albuterol Sulfate [Proair HFA] 1 puff INH PRN PRN 07/13/15 08/16/18 History HYDROcodone/Acetaminophen [[place] 1 - 2 each PO Q6HR PRN 07/19/18 08/16/18 History 10-325 Tablet] Cyclobenzaprine HCl 5 mg PO TID PRN 08/16/18 08/16/18 History HumaLOG [HumaLOG Vial] 1.25 units SC ASDIR PRN 08/16/18 08/16/18 History Levothyroxine [Synthroid] 150 mg PO 0600 08/16/18 08/16/18 History Pantoprazole [Protonix] 40 mg PO HS 08/16/18 08/16/18 History - History PMHx: DM 1, Rheumatoid arthritis, OA, PVD, GERD, HTN, CAD s/p CABG, Hypothyroidism, Depression, fibromyalgia PSHx: CABG x3v, hysterectomy, C/S, 5th toe amputation, partial foot removal April 2014 FHx: DM & HTN in multiple family members. Father- from a massive SC at age 50 Social: Denies alcohol or drug use. Former tobacco use but quit ~29 years ago. Only smoked 6 years before quitting. - Review of Systems General: reports: fever/chills, fatigue Eyes: denies: eye pain, other (eye pain) ENT: denies: nasal congestion, rhinorrhea Respiratory: denies: cough, congestion, shortness of breath Cardiovascular: denies: chest pain, palpitation Gastrointestinal: reports: nausea, constipation. denies: vomiting, diarrhea, abdominal pain Skin: denies: rashes, lesions Musculoskeletal: reports: arthritis/arthralgias. denies: pain, tenderness Neurological: denies: syncope, weakness - Vital signs BP: 113/84 HR: 140 RR: 21 Tmax: 98.9 Pox: 96% on RA Wt: 125kg - Physical Exam Constitutional: NAD, awake, alert and oriented, well developed HEENT: normocephalic and atraumatic, conjunctiva clear, normal nasal mucosa, MMM , oropharynx clear Neck: supple, trachea midline Heart: pulses present, no edema, other (tachycardic) Lungs: no respiratory distress, no retractions Abdomen: soft, non-tender, bowel sounds present Musculoskeletal: normal tone, other (right partial foot amputation- healed. Otherwise normal structure) Neurological: no focal deficit Skin: no rash/lesions, capillary refill <2 seconds Psychiatric: normal mood and affect, good judgment and insight, intact recent and remote memory FMR H&P: Results - Labs Result Diagrams: 08/16/18 16:12 08/17/18 04:40 Lab results: WBC 10.1 thou/uL (4.8-10.8) 08/16/18 16:12 Hgb 12.4 g/dL (12.0-16.0) 08/16/18 16:12 Hct 41.0 % (36.0-47.0) 08/16/18 16:12 MCV 74.2 fL (78.0-98.0) L 08/16/18 16:12 Plt Count 342 thou/uL (130-400) 08/16/18 16:12 Neutrophils % 74.1 % (42.0-75.0) 08/16/18 16:12 Sodium 133 mmol/L (136-145) L 08/16/18 16:12 Potassium 4.7 mmol/L (3.5-5.1) 08/16/18 16:12 Chloride 100 mmol/L (98-107) 08/16/18 16:12 Carbon Dioxide 25 mmol/L (22-29) 08/16/18 16:12 BUN 11 mg/dL (7.0-18.7) 08/16/18 16:12 Creatinine 0.91 mg/dL (0.6-1.1) 08/16/18 16:12 Glucose 330 mg/dL (70-105) H 08/16/18 16:12 Calcium 9.3 mg/dL (7.8-10.44) 08/16/18 16:12 Total Bilirubin 0.7 mg/dL (0.2-1.2) 08/16/18 16:12 AST 17 U/L (5-34) 08/16/18 16:12 ALT 16 U/L (8-55) 08/16/18 16:12 Alkaline Phosphatase 130 U/L (40-150) 08/16/18 16:12 Serum Total Protein 7.6 g/dL (6.0-8.3) 08/16/18 16:12 Albumin 3.3 g/dL (3.5-5.0) L 08/16/18 16:12 - EKG Interpretation EKG: Atrial flutter FMR H&P: A/P - Problem List (1) Atrial flutter Current Visit: Yes Status: Acute Code(s): I48.92 - UNSPECIFIED ATRIAL FLUTTER (2) Amputated toe Current Visit: No Status: Acute Code(s): Z89.429 - ACQUIRED ABSENCE OF OTHER TOE(S), UNSPECIFIED SIDE (3) Anxiety Current Visit: No Status: Acute Code(s): F41.9 - ANXIETY DISORDER, UNSPECIFIED (4) Chronic pain Current Visit: No Status: Acute Code(s): G89.29 - OTHER CHRONIC PAIN (5) Depression Current Visit: No Status: Acute Code(s): F32.9 - MAJOR DEPRESSIVE DISORDER, SINGLE EPISODE, UNSPECIFIED (6) Diabetes type 1, uncontrolled Current Visit: No Status: Acute (7) Diabetic neuropathy Current Visit: No Status: Acute Code(s): E11.40 - TYPE 2 DIABETES MELLITUS WITH DIABETIC NEUROPATHY, UNSP Qualifiers: Diabetes mellitus type: type 1 Diabetes mellitus complication detail: with other neurological complication Qualified Code(s): E10.49 - Type 1 diabetes mellitus with other diabetic neurological complication (8) Elevated troponin Current Visit: No Status: Acute Code(s): R74.8 - ABNORMAL LEVELS OF OTHER SERUM ENZYMES (9) Arthritis, rheumatoid Current Visit: No Status: Chronic Code(s): M06.9 - RHEUMATOID ARTHRITIS, UNSPECIFIED (10) Coronary artery disease Current Visit: No Status: Chronic Code(s): I25.10 - ATHSCL HEART DISEASE OF [place] CORONARY ARTERY W/O ANG PCTRS (11) Fibromyalgia Current Visit: No Status: Chronic (12) GERD (gastroesophageal reflux disease) Current Visit: No Status: Chronic Code(s): K21.9 - GASTRO-ESOPHAGEAL REFLUX DISEASE WITHOUT ESOPHAGITIS (13) History of coronary artery disease Current Visit: No Status: Chronic Code(s): Z86.79 - PERSONAL HISTORY OF OTHER DISEASES OF THE CIRCULATORY SYSTEM (14) Hx of CABG Current Visit: No Status: Chronic (15) Hyperlipemia Current Visit: No Status: Chronic Code(s): E78.5 - HYPERLIPIDEMIA, UNSPECIFIED (16) Hypertension Current Visit: No Status: Chronic Code(s): I10 - ESSENTIAL (PRIMARY) HYPERTENSION (17) Hypothyroidism Current Visit: No Status: Chronic Code(s): E03.9 - HYPOTHYROIDISM, UNSPECIFIED - Plan Ms Cagle is a 48yo female with pmh of fibromyalgia, DM, hypothyroidism, HTN, RA admitted for new onset Atrial flutter Atrial Flutter - EKG: flutter with HR of 148 - Echo 07/20/18: difficult study, EF mildly depressed with distal anterior wall and apex hypokinesia. Mild/Mod regurg - Started on Dilt gtt in the ED, currently rate controlled at 10. - TSH, Mg, Phos pending - Admit to tele Rheumatoid Arthritis - Continue home Prednisone and [place] Elevated Troponin - Stable from prior visits - Continue to trend Fibromyalgia - Continue home meds Type 1 DM - Pt has insulin pump, continue home metformin - Complications include blindness 2/2 diabetic retinopathy, peripheral neuropathy - A1c 8.6% on 07/19/18 - CC diet Depression - Continue home meds GERD - Continue home meds HTN CAD s/p CABG x3v - Continue home meds Hypothyroidism - TSH pending - Continue home meds Peripheral Neuropathy - Continue home Lyrica Code Status: FULL DVT ppx: Lovenox PCP: Dr Huff ([facility]) Addendum - Attending - Attending Attestation Date/Time: 08/17/18 [id number] I personally evaluated the patient and discussed the management with Dr. Almaguer. I agree with the History, Examination, Assessment and Plan documented above with any addition or exceptions noted below.
[2018-08-16 17:07] LABS: CKMB 1.4 ng/mL (0-6.6)
[2018-08-16 19:50] LABS: Troponin I 0.156 ng/mL (< 0.028)
[2018-08-16] MEDS ORDERED: PROVENTIL INHALER 6.7 G (200 INHALATIONS) INH PRN (20:00)
[2018-08-16 20:24] LABS: Magnesium 1.4 mg/dL (1.6-2.6); Phosphorus 3.2 mg/dL (2.3-4.7)
[2018-08-16 20:51] VITALS: BMI 46.3
[2018-08-16] MEDS ORDERED: Diltiazem 125 MG in Sodium Chloride 0.9% 100 ML IVPB SCH (20:56)
[2018-08-16] MEDS ORDERED: Dextrose 5% in Water 1,000 ML IV PRN (21:20)
[2018-08-16] MEDS ORDERED: Dextrose 50% Abboject 50 ML SYRINGE SLOW IVP PRN (21:20)
[2018-08-16] MEDS ORDERED: Magnesium 2 GM/50 ML 2 GM in Premix Bag 1 BAG IVPB SCH (22:00)
[2018-08-16] MEDS: Atorvastatin Calcium 40 MG TAB PO SCH (22:06)
[2018-08-16] MEDS: metFORMIN 500 MG TAB PO SCH (22:06)
[2018-08-16] MEDS: Cyclobenzaprine 10 MG TAB PO SCH (22:07)
[2018-08-16] MEDS: predniSONE 5 MG TAB PO SCH (22:08)
[2018-08-16] MEDS: Pregabalin 50 MG CAP PO SCH (22:08)
[2018-08-16] MEDS: Potassium Chloride 20 MEQ TAB PO SCH (22:08)
[2018-08-16 22:33] LABS: Troponin I 0.145 ng/mL (< 0.028)
[2018-08-17] MEDS: HYDROcodone/Acetaminophen 10/325 mg Tablet PO PRN ×3 (01:54→18:18)
[2018-08-17 05:23] LABS: Anion Gap 13 mmol/L (10-20); BUN (Urea Nitrogen) 12 mg/dL (7.0-18.7); Calc. Creatinine Clearance 181 mL/min (70-130); Calcium 8.9 mg/dL (7.8-10.44); Carbon Dioxide 23 mmol/L (22-29); Chloride 105 mmol/L (98-107); Estimated GFR-MDRD 86; Glucose 186 mg/dL (70-105); Magnesium 1.8 mg/dL (1.6-2.6); Potassium 4.5 mmol/L (3.5-5.1); Sodium 136 mmol/L (136-145)
[2018-08-17] MEDS ORDERED: Levothyroxine 150 MCG TAB PO SCH (06:00)
--- NOTE | 2018-08-17 07:18 | PDOC.FM ---
- Subjective Subjective: pt resting comfortably in bed, denies palpitations, sob or chest pain. - Objective Vital Signs & Weight: Vital Signs (12 hours) Temp Pulse Resp BP Pulse Ox 08/17/18 02:59 98.4 F 104 H 20 132/64 92 L 08/16/18 23:40 98.3 F 97 22 H 128/60 99 08/16/18 20:37 98.1 F 109 H 18 107/58 L 98 Weight Weight 122.47 kg I&O: 08/16/18 08/17/18 08/18/18 06:59 06:59 06:59 Intake Total 1116 Output Total 300 Balance 816 Result Diagrams: 08/16/18 16:12 08/17/18 04:40 Phys Exam - Physical Examination Constitutional: NAD HEENT: moist MMs Neck: no JVD Respiratory: clear to auscultation bilateral Cardiovascular: RRR, no significant murmur Gastrointestinal: no distention Musculoskeletal: pulses present Psychiatric: normal affect Skin: no rash Dx/Plan (1) Atrial flutter Code(s): I48.92 - UNSPECIFIED ATRIAL FLUTTER Status: Acute (2) Chronic pain Code(s): G89.29 - OTHER CHRONIC PAIN Status: Acute (3) Diabetes type 1, uncontrolled Status: Acute (4) Diabetic neuropathy Code(s): E11.40 - TYPE 2 DIABETES MELLITUS WITH DIABETIC NEUROPATHY, UNSP Status: Acute Qualifiers: Diabetes mellitus type: type 1 Diabetes mellitus complication detail: with other neurological complication Qualified Code(s): E10.49 - Type 1 diabetes mellitus with other diabetic neurological complication (5) Elevated troponin Code(s): R74.8 - ABNORMAL LEVELS OF OTHER SERUM ENZYMES Status: Acute (6) Coronary artery disease Code(s): I25.10 - ATHSCL HEART DISEASE OF [place] CORONARY ARTERY W/O ANG PCTRS Status: Chronic (7) Fibromyalgia Status: Chronic (8) GERD (gastroesophageal reflux disease) Code(s): K21.9 - GASTRO-ESOPHAGEAL REFLUX DISEASE WITHOUT ESOPHAGITIS Status: Chronic - Plan Plan: Atrial Flutter - EKG: flutter with HR of 148 - Echo 07/20/18: difficult study, EF mildly depressed with distal anterior wall and apex hypokinesia. Mild/Mod regurg - Started on Dilt gtt in the ED, - T4, Mg, Phos wnl - transition to PO dilt, consult cards, appreciate recs - monitor on tele Rheumatoid Arthritis - Continue home Prednisone and [place] Elevated Troponin - Stable from prior visits - Continue to trend Fibromyalgia - Continue home meds Type 1 DM - Pt has insulin pump, continue home metformin - Complications include blindness 2/2 diabetic retinopathy, peripheral neuropathy - A1c 8.6% on 07/19/18 - CC diet Depression - Continue home meds GERD - Continue home meds HTN CAD s/p CABG x3v - Continue home meds Hypothyroidism - TSH pending - Continue home meds Peripheral Neuropathy - Continue home Lyrica Code Status: FULL DVT ppx: Lovenox PCP: Dr Huff ([facility]) Addendum - Attending - Attending Attestation Date/Time: 08/17/18 9910 I personally evaluated the patient and discussed the management with Dr. Rodriguez. I agree with the History, Examination, Assessment and Plan documented above with any addition or exceptions noted below. Patient here for what appears to be new onset Aflutter, though she did have documented SVT on previous admission EKG. She is well controlled on Dilt drip and BP stable. Will consult cardiology today as she will likely need EP eval and ablation at some point. Continue other meds for chronic conditions. Trops downtrending and no evidence of ACS cause. Echo obtained a few weeks ago and reviewed. No LA dilatation.
[2018-08-17] MEDS: Diltiazem 125 MG in Sodium Chloride 0.9% 100 ML IVPB SCH ×2 (07:26→19:14)
[2018-08-17] MEDS: Potassium Chloride 20 MEQ TAB PO SCH ×2 (08:56→21:31)
[2018-08-17] MEDS: Aspirin 325 mg Enteric Coated Tablet PO SCH (08:56)
[2018-08-17] MEDS: predniSONE 5 MG TAB PO SCH ×2 (08:56→21:32)
[2018-08-17] MEDS: Folic Acid 1 MG TAB PO SCH (08:56)
[2018-08-17] MEDS: Enoxaparin Sodium 40 MG/0.4 ML SYRINGE SC SCH (08:56)
[2018-08-17] MEDS: metFORMIN 500 MG TAB PO SCH ×2 (08:56→21:32)
[2018-08-17] MEDS: Pregabalin 50 MG CAP PO SCH ×2 (08:57→21:28)
[2018-08-17] MEDS ORDERED: Venlafaxine HCl 37.5 MG TAB PO SCH (09:00)
[2018-08-17] MEDS: Nitroglycerin 0.4 MG TAB (25 Tab Bottle) SL PRN ×2 (14:00→14:08)
--- NOTE | 2018-08-17 14:45 | PDOC.EVN ---
Event Note - Event Note Event Note: 1350 I was paged by the patients nurse because she was actively having squeezing chest pain. I orders stat EKG, Trops with reflex CKMB and nitrostat. I went to the bedside to evaluate the patient. She was having chest pain, shortness of breath and some nausea. She denied any diaphoresis. Her heart rate was 110's and regular. EKG did not show any ST elevations. The nurse gave her one nitro. The chest pain went away, but shortly returned after a few minutes. Her BP was 120's/50-60's, HR 100's. She was given one more nitro, which ceased the pain. She states she felt like her breath was taken from her and she would occasionally gasp for air. This sensation went away when the chest pain stopped. She was stable and not having chest pain when I left the bedside.
[2018-08-17 14:56] LABS: CKMB 1.4 ng/mL (0-6.6)
--- NOTE | 2018-08-17 15:57 | CON ---
DATE OF CONSULTATION: 08/17/2018 REASON FOR CONSULTATION: Dysrhythmia and chest pain. PRIMARY HOG BUYER: Dr. Paolo Fang. HISTORY OF PRESENT ILLNESS: Ms. Cagle is a 48-year-old woman with past medical history of CAD status bypass surgery, who previously was in the hospital in July of 2018. She initially presented with atypical chest pain. She underwent a noninvasive stress study on 07/20/2018 that did show LVEF, the lower limits of normal at 47% with a fixed defect seen in the anterior wall. She re-presented with a tachycardia. She was seen and evaluated by primary care provider with heart rate in the 150s to 160s. She then proceeded to the emergency room. At that time, she states she was asymptomatic. She had an episode of chest pain today. It lasted 30 minutes. It was relieved with sublingual nitroglycerin. When she was transferred to telemetry monitoring from the ER, she did convert back to sinus rhythm. PAST MEDICAL HISTORY: CAD status bypass surgery, diabetes mellitus, rheumatoid arthritis, osteoarthritis, acid reflux, hypothyroidism, depression, fibromyalgia , hysterectomy, toe amputation, foot removal. FAMILY HISTORY: Positive for AL. SOCIAL HISTORY: No current tobacco or alcohol use. REVIEW OF SYSTEMS: Ten-point review of systems is reviewed and as above. Otherwise, negative. PHYSICAL EXAMINATION: GENERAL: Patient is a pleasant female, who is in no acute distress. The patient appears their stated age. VITAL SIGNS: Blood pressure 115/58, pulse 97, temperature 97.9. NEUROLOGIC: The patient is alert and oriented x3 with no focal neurologic deficits. HEENT: Sclerae without icterus. Mouth has moist mucous membranes with normal pallor. NECK: No JVD. Carotid upstroke brisk. No bruits bilaterally. LUNGS: Clear to auscultation with unlabored respirations. BACK: No scoliosis or kyphosis. CARDIAC: Regular rate and rhythm with normal S1 and S2. No S3 or S4 noted. No significant rubs, murmurs, thrills, or gallops noted throughout the precordium. PMI is not displaced. There is no parasternal heave. ABDOMEN: Soft, nontender, nondistended. No peritoneal signs present. No hepatosplenomegaly. No abnormal striae. EXTREMITIES: 2+ femoral and 2+ dorsalis pedis pulses. No cyanosis, clubbing, or edema. SKIN: No gross abnormalities. PERTINENT LABORATORY DATA: Hemoglobin 12.2, creatinine 0.7, peak troponin 0.145 , which is unchanged. Telemetry monitoring initially showed atrial flutter versus VT, now sinus rhythm. She has also had several runs of wide-complex tachycardia. IMPRESSION: 1. Recurrent chest pain. 2. Coronary artery disease. 3. Status post bypass surgery. 4. Atrial flutter. RECOMMENDATIONS: Ms. Cagle has had a full cardiac workup during the last hospitalization. At this point, would not proceed with a repeat stress test. Discussed coronary angiography versus medical therapy, recommending coronary angiography. I discussed procedure in full detail with Ms. Cagle. Risks included, but not limited to the following: , stroke, AL, need for emergency surgery , loss of limb, bleeding, and infection, as well as a reaction to the dye causing kidney failure and needing long-term dialysis. I also discussed the risks of PCI to include all of the above including coronary dissection and perforation in addition to acute stent thrombosis and restenosis. All questions about the procedure were answered. Given the above, the patient agreed to proceed with coronary angiography and possible PCI. All questions were answered. She would like to think it over with her . From a rhythm standpoint, she may need anticoagulation therapy. We will likely consult with ALEJANDRA. Job ID: [id number] [facility] PSYCHIATRIC CENTERLeonel
--- NOTE | 2018-08-17 17:01 | EKG ---
Test Reason : Blood Pressure : / mmHG Vent. Rate : 148 BPM Atrial Rate : 053 BPM P-R Int : 000 ms QRS Dur : 092 ms QT Int : 334 ms P-R-T Axes : 000 -58 113 degrees QTc Int : 524 ms Atrial Flutter Low voltage QRS Left anterior fascicular block Cannot rule out Anterior infarct , age undetermined T wave abnormality, consider lateral ischemia Abnormal ECG Confirmed by SIRI HALE, ANU ([id number]), research editor CINDY FULLER ([id number]) on 08/17/2018 5:01:41 PM Referred By: Confirmed By:ANU HORNER MD
[2018-08-17] MEDS: Nitroglycerin 2% Ointment 1 INCH/1 GM Packet TOP SCH (18:11)
[2018-08-17] MEDS: Cyclobenzaprine 10 MG TAB PO SCH (21:31)
[2018-08-17] MEDS: Atorvastatin Calcium 40 MG TAB PO SCH (21:32)
[2018-08-18] MEDS ORDERED: Ondansetron ODT 4 MG TAB PO SCH (00:45)
[2018-08-18] MEDS: Nitroglycerin 2% Ointment 1 INCH/1 GM Packet TOP SCH ×4 (01:26→22:51)
[2018-08-18 05:15] LABS: Anion Gap 11 mmol/L (10-20); BUN (Urea Nitrogen) 10 mg/dL (7.0-18.7); Calc. Creatinine Clearance 197 mL/min (70-130); Calcium 9.2 mg/dL (7.8-10.44); Carbon Dioxide 25 mmol/L (22-29); Chloride 102 mmol/L (98-107); Estimated GFR-MDRD Greater than 90; Glucose 102 mg/dL (70-105); Potassium 4.4 mmol/L (3.5-5.1); Sodium 134 mmol/L (136-145)
--- NOTE | 2018-08-18 07:22 | PDOC.FM ---
- Subjective Subjective: pt resting comfortably in bed, chest pain yesterday, ST segment changes. event per Dr. Vargas note. no pain today, willing to do cath - Objective Vital Signs & Weight: Vital Signs (12 hours) Temp Pulse Resp BP Pulse Ox 08/18/18 04:00 98.2 F 102 H 20 128/60 92 L 08/18/18 00:00 98.2 F 99 20 113/54 L 95 08/17/18 19:55 98.6 F 97 19 120/60 97 Weight Admit Weight 122.47 kg Weight 122.924 kg I&O: 08/17/18 08/18/18 08/19/18 06:59 06:59 06:59 Intake Total 1116 2760 Output Total 300 2100 Balance 816 660 Result Diagrams: 08/16/18 16:12 08/18/18 04:18 Phys Exam - Physical Examination Constitutional: NAD HEENT: moist MMs Neck: no JVD Respiratory: clear to auscultation bilateral Cardiovascular: RRR, no significant murmur Gastrointestinal: soft, no distention Musculoskeletal: pulses present Skin: no rash Dx/Plan (1) Atrial flutter Code(s): I48.92 - UNSPECIFIED ATRIAL FLUTTER Status: Acute (2) Chronic pain Code(s): G89.29 - OTHER CHRONIC PAIN Status: Acute (3) Diabetes type 1, uncontrolled Status: Acute (4) Diabetic neuropathy Code(s): E11.40 - TYPE 2 DIABETES MELLITUS WITH DIABETIC NEUROPATHY, UNSP Status: Acute Qualifiers: Diabetes mellitus type: type 1 Diabetes mellitus complication detail: with other neurological complication Qualified Code(s): E10.49 - Type 1 diabetes mellitus with other diabetic neurological complication (5) Elevated troponin Code(s): R74.8 - ABNORMAL LEVELS OF OTHER SERUM ENZYMES Status: Acute (6) Coronary artery disease Code(s): I25.10 - ATHSCL HEART DISEASE OF [place] CORONARY ARTERY W/O ANG PCTRS Status: Chronic (7) Fibromyalgia Status: Chronic (8) GERD (gastroesophageal reflux disease) Code(s): K21.9 - GASTRO-ESOPHAGEAL REFLUX DISEASE WITHOUT ESOPHAGITIS Status: Chronic - Plan Plan: Atrial Flutter - EKG: flutter with HR of 148 - Echo 07/20/18: difficult study, EF mildly depressed with distal anterior wall and apex hypokinesia. Mild/Mod regurg - Started on Dilt gtt in the ED, T4, Mg, Phos wnl - consult cards, appreciate recs - NSR overnight, cath sunday Rheumatoid Arthritis - Continue home Prednisone and [place] Elevated Troponin - Stable from prior visits - Continue to trend Fibromyalgia - Continue home meds Type 1 DM - Pt has insulin pump, continue home metformin - Complications include blindness 2/2 diabetic retinopathy, peripheral neuropathy - A1c 8.6% on 07/19/18 - CC diet Depression - Continue home meds GERD - Continue home meds HTN CAD s/p CABG x3v - Continue home meds Hypothyroidism - TSH pending - Continue home meds Peripheral Neuropathy - Continue home Lyrica Code Status: FULL DVT ppx: Lovenox PCP: Dr Huff ([facility]) Dispo: continue dilt drip, monitoring. cath sunday Addendum - Attending - Attending Attestation Date/Time: 08/18/18 1256 I personally evaluated the patient and discussed the management with Dr. Rodriguez. I agree with the History, Examination, Assessment and Plan documented above with any addition or exceptions noted below. Patient overall stable. Reports willingness to proceed with heart cath. Continues to have overall ventricular rate control with IV diltiazem. She will go for heart cath tomorrow. Awaiting cardiology and EP recs. Other chronic conditions currently stable.
[2018-08-18] MEDS: Diltiazem 125 MG in Sodium Chloride 0.9% 100 ML IVPB SCH (07:47)
[2018-08-18] MEDS: Aspirin 325 mg Enteric Coated Tablet PO SCH (08:52)
[2018-08-18] MEDS: Enoxaparin Sodium 40 MG/0.4 ML SYRINGE SC SCH (08:52)
[2018-08-18] MEDS: predniSONE 5 MG TAB PO SCH ×2 (08:53→19:47)
[2018-08-18] MEDS: Folic Acid 1 MG TAB PO SCH (08:53)
[2018-08-18] MEDS: metFORMIN 500 MG TAB PO SCH ×2 (08:53→19:46)
[2018-08-18] MEDS: Potassium Chloride 20 MEQ TAB PO SCH ×2 (08:53→19:47)
[2018-08-18] MEDS: Pregabalin 50 MG CAP PO SCH ×2 (08:53→19:45)
[2018-08-18] MEDS: HYDROcodone/Acetaminophen 10/325 mg Tablet PO PRN ×2 (09:08→22:51)
--- NOTE | 2018-08-18 10:50 | PDOC.CTH ---
Cardiology Progress Note - Subjective Patient denies any CP overnight. Pulse rate stabilized. - Objective Vital Signs Temp Pulse Resp BP Pulse Ox 08/18/18 07:52 98.0 F 97 18 101/53 L 95 08/18/18 04:00 98.2 F 102 H 20 128/60 92 L 08/18/18 00:00 98.2 F 99 20 113/54 L 95 Admit Weight 270 lb Weight 271 lb 08/17/18 08/18/18 08/19/18 06:59 06:59 06:59 Intake Total 1116 2760 Output Total 300 2100 Balance 816 660 - Physical Examination General/Neuro: alert & oriented x3 Neck: no JVD present Lungs: CTA Heart: RRR Abdomen: NT/ND - Telemetry Telemetry Rhythm: SR - Labs Result Diagrams: 08/16/18 16:12 08/18/18 04:18 Troponin/CKMB CK-MB (CK-2) 1.4 ng/mL (0-6.6) 08/17/18 14:01 Troponin I 0.145 ng/mL (< 0.028) H 08/17/18 14:01 - Assessment/Plan 1. AFlutter with RVR 2. CP 3. CAD s/p CABG Patient stable. Denies further CP, but reports symptoms she presented with are exactly like her anginal symptoms prior to CABG. Will keep NPO for cath tomorrow. Consult EP for AFlutter. Titrate down Cardizem.
[2018-08-18] MEDS ORDERED: Diltiazem 125 MG in Sodium Chloride 0.9% 100 ML IVPB SCH (11:00)
[2018-08-18 12:23] LABS: Bilirubin Negative (Negative); Blood, Urine Small (Negative); Clarity Cloudy (Clear); Glucose, Urine (Dipstick) Negative (Negative); Leukocyte Large (Negative); Nitrite Negative (Negative); Protein, Urine (Dipstick) Trace mg/dL (Neg-Trace)
[2018-08-18 12:40] LABS: Bacteria/HPF 4+ HPF (None Seen); Squamous Epithelial 0-3 HPF (0-3); WBC/HPF Greater Than 50 HPF (0-3)
[2018-08-18 12:42] LABS: Urine Culture Reflex Yes Yes
[2018-08-18] MEDS ORDERED: Communication Order-Pharmacy FS SCH (16:15)
[2018-08-18] MEDS: Cyclobenzaprine 10 MG TAB PO SCH (19:44)
[2018-08-18] MEDS: Atorvastatin Calcium 40 MG TAB PO SCH (19:46)
--- NOTE | 2018-08-18 21:41 | PDOC.FM ---
- Subjective Subjective: Pt says she had a slight headache overnight due to a nitro patch that was replaced. They removed the nitro patch last night. She said she had a BM last night. - Objective MAR Reviewed: Yes Vital Signs & Weight: Vital Signs (12 hours) Temp Pulse Resp BP Pulse Ox 08/18/18 19:39 98.5 F 98 20 129/57 L 95 08/18/18 15:45 97.9 F 102 H 18 134/66 96 08/18/18 13:10 97.5 F L 95 18 122/66 95 Weight Admit Weight 122.47 kg Weight 122.924 kg I&O: 08/17/18 08/18/18 08/19/18 06:59 06:59 06:59 Intake Total 1116 2760 1040 Output Total 300 2100 300 Balance 816 660 740 Result Diagrams: 08/16/18 16:12 08/19/18 05:10 Additional Labs: UA present shows small amount of blood, large amount of leukocyte esterase, 4-6 RBC, >50 WBC, Bacteria: 4+, Cx is + for E. coli. EKG Reviewed by me: Yes (A flutter with HR: 115, PA: .18, QRS: .10, QT: .34) Phys Exam - Physical Examination HEENT: sclera anicteric, oral pharynx no lesions Neck: no nodes, supple Respiratory: no wheezing, clear to auscultation bilateral Cardiovascular: no significant murmur, irregular Tachycardiac Gastrointestinal: soft, non-tender, positive bowel sounds Musculoskeletal: no edema, pulses present Neurological: normal sensation, moves all 4 limbs Lymphatic: no nodes Psychiatric: normal affect, A&O x 3 Skin: no rash Dx/Plan (1) Atrial flutter Code(s): I48.92 - UNSPECIFIED ATRIAL FLUTTER Status: Acute Qualifiers: Atrial flutter type: typical Qualified Code(s): I48.3 - Typical atrial flutter (2) Bacteriuria Code(s): R82.71 - BACTERIURIA Status: Acute (3) Chronic pain Code(s): G89.29 - OTHER CHRONIC PAIN Status: Acute Qualifiers: Chronic pain type: other chronic pain Qualified Code(s): G89.29 - Other chronic pain (4) Diabetes mellitus type 1 Status: Acute Qualifiers: Diabetes mellitus complication status: with neurologic complications Diabetes mellitus complication detail: with unspecified neuropathy Qualified Code(s): E10.40 - Type 1 diabetes mellitus with diabetic neuropathy, unspecified (5) Diabetic neuropathy Code(s): E11.40 - TYPE 2 DIABETES MELLITUS WITH DIABETIC NEUROPATHY, UNSP Status: Acute Qualifiers: Diabetes mellitus type: type 1 Diabetes mellitus complication detail: with other neurological complication Qualified Code(s): E10.49 - Type 1 diabetes mellitus with other diabetic neurological complication (6) Elevated troponin Code(s): R74.8 - ABNORMAL LEVELS OF OTHER SERUM ENZYMES Status: Acute (7) Coronary artery disease Code(s): I25.10 - ATHSCL HEART DISEASE OF [place] CORONARY ARTERY W/O ANG PCTRS Status: Chronic Qualifiers: Coronary Disease-Associated Artery/Lesion type: bypass graft Associated angina: without angina (8) Fibromyalgia Status: Chronic (9) GERD (gastroesophageal reflux disease) Code(s): K21.9 - GASTRO-ESOPHAGEAL REFLUX DISEASE WITHOUT ESOPHAGITIS Status: Chronic Qualifiers: Esophagitis presence: esophagitis presence not specified Qualified Code(s) : K21.9 - Gastro-esophageal reflux disease without esophagitis - Plan Plan: Pt is 48 yo CF with history of Fibromyalgia, DM I with opthalmic & neuropathic complications, HTN, GERD who presents with new onset A-flutter. 1.Atrial Flutter - EKG: flutter with HR of 148 - Echo 07/20/18: difficult study, EF mildly depressed (36.2%) with distal anterior wall and apex hypokinesia. Mild/Mod regurg of Mitral & Tricuspid valves. - Started on Dilt gtt in the ED. T4, Mg, Phos wnl - Consulted card (Dr. Sesay 08/17), appreciate recs - NPO last night, cath today, ablation tomorrow. - Will check throughout the day to make sure she is rate controlled on the Diltiazem drip. - Cath: PCI/ Drug Eluting Stent placed in LAD. 2. UTI -UA shows small blood, large amount of leukocyte esterase, 4-6 RBC, >50 WBC, Bacteria 4+ -Cx is + for E. coli, will treat with 1 gm Rocephin. -pt reports no urgency, frequency, dysuria; however, she does report foul smelling urine. 3. Rheumatoid Arthritis - Continue home meds: Prednisone and [place] 4. Elevated Troponin - Stable from prior visits - Continue to trend 5. Fibromyalgia - Continue home meds: Lyrica 6. Type 1 DM - Pt has insulin pump, continue home metformin - Complications include blindness 2/2 diabetic retinopathy, peripheral neuropathy - A1c 8.6% on 07/19/18 - CC diet 7. Depression - Continue home med: Venlafaxine 8. GERD - Continue home med: Protonix 9. HTN: -Holding Metoprolol for now 10. CAD s/p CABG x3v: - Continue home med: ASA, Atorvastatin (held Metoprolol) 11. Hypothyroidism - TSH pending - Continue home med: Synthroid 12. Peripheral Neuropathy - Continue home Lyrica Diet: NPO Code Status: FULL DVT Ppx: Lovenox PCP: Dr Huff ([facility]) Dispo: Continue dilt drip, monitoring. Cath today, will determine dispo upon EP recs when ablation is done tomorrow.
[2018-08-19] MEDS: HYDROcodone/Acetaminophen 10/325 mg Tablet PO PRN ×2 (05:11→17:40)
[2018-08-19] MEDS: Pregabalin 50 MG CAP PO SCH ×2 (05:12→20:05)
[2018-08-19] MEDS: Folic Acid 1 MG TAB PO SCH (05:13)
[2018-08-19] MEDS: predniSONE 5 MG TAB PO SCH ×2 (05:13→20:07)
[2018-08-19] MEDS: Aspirin 325 mg Enteric Coated Tablet PO SCH (05:13)
[2018-08-19 05:46] LABS: Anion Gap 11 mmol/L (10-20); BUN (Urea Nitrogen) 10 mg/dL (7.0-18.7); Calc. Creatinine Clearance 184 mL/min (70-130); Calcium 8.9 mg/dL (7.8-10.44); Carbon Dioxide 24 mmol/L (22-29); Chloride 102 mmol/L (98-107); Estimated GFR-MDRD 87; Glucose 148 mg/dL (70-105); Potassium 4.6 mmol/L (3.5-5.1); Sodium 132 mmol/L (136-145)
[2018-08-19] MEDS ORDERED: Sodium Chloride 0.9% 1,000 ML IV SCH ×2 (06:00→12:14)
[2018-08-19] MEDS ORDERED: HumaLOG 300 UNITS/3 ML VIAL SC PRN (06:40)
[2018-08-19] MEDS: Nitroglycerin 2% Ointment 1 INCH/1 GM Packet TOP SCH (07:05)
[2018-08-19] MEDS ORDERED: Communication Order-Pharmacy FS SCH (09:00)
[2018-08-19] MEDS ORDERED: Heparin 0 ML ONE (09:21)
[2018-08-19] MEDS ORDERED: Lidocaine 1% (PF) 30 ML VIAL ONE (09:21)
[2018-08-19] MEDS ORDERED: Iopamidol 370 76% 100 ML VIAL ONE (09:41)
[2018-08-19] MEDS ORDERED: Iopamidol 370 76% 50 ML VIAL FS ONE (09:41)
[2018-08-19] MEDS ORDERED: Heparin 10,000 UNITS/1 ML VIAL ONE ×2 (09:42→09:49)
[2018-08-19] MEDS: metFORMIN 500 MG TAB PO SCH (10:24)
[2018-08-19] MEDS ORDERED: Midazolam HCl 2 mg/2 ml Vial ONE (10:28)
[2018-08-19] MEDS ORDERED: Fentanyl 100 MCG/2 ML VIAL ONE (10:28)
[2018-08-19 10:53] LABS: Analyzer IN Cardio OR; Base Excess (BEa) -6.9 mEq/L (-2.0 to +3.0); CO2 Tension 45.5 mmHg (35.0-45.0); Calcium, Ionized 1.13 mmol/L (1.12-1.30); Carboxyhemoglobin (COHb) 1.2 gm% (0.0-3.0); Hemoglobin (Hb) 10.8 g/dL (12.0-16.0); O2 Tension (PaO2) 55.1 mmHg (80.0-100.0); pH, Arterial 7.26 (7.35-7.45)
[2018-08-19 10:54] LABS: Puncture Site LINE
[2018-08-19] MEDS ORDERED: Bivalirudin 250 MG VIAL ONE (11:07)
[2018-08-19] MEDS ORDERED: Clopidogrel Bisulfate 300 MG TAB ONE (11:11)
[2018-08-19] MEDS ORDERED: Nitroglycerin 100MG/250ML BOT 250 ML ONE (11:20)
[2018-08-19] MEDS: Potassium Chloride 20 MEQ TAB PO SCH ×2 (11:53→20:06)
--- NOTE | 2018-08-19 12:08 | PRG ---
DATE OF SERVICE: 08/19/2018 Ms. Cagle is a 48-year-old lady with known coronary artery disease. She presented in atrial flutter and typical chest pain. She is taken to heart catheterization, and we are awaiting these results. She will likely also later see the Electrophysiology physicians for further treatment of her atrial flutter. Her troponins did not trend into the NSTEMI range. We will await further recommendations from the manager packaging following her cardiac catheterization. Job ID: [id number]
[2018-08-19] MEDS ORDERED: cefTRIAXone\\ROCEPHIN 1 GM in Sodium Chloride 0.9% 100 ML IVPB SCH (12:30)
[2018-08-19] MEDS ORDERED: Dextrose 5% in Water 1,000 ML IV PRN (14:02)
[2018-08-19] MEDS ORDERED: Dextrose 50% Abboject 50 ML SYRINGE SLOW IVP PRN (14:02)
[2018-08-19] MEDS ORDERED: HumaLOG 300 UNITS/3 ML VIAL SC SCH (14:15)
[2018-08-19] MEDS ORDERED: HumaLOG 300 UNITS/3 ML VIAL ONE (14:18)
--- NOTE | 2018-08-19 17:23 | EKG ---
Test Reason : POST STENTS X2 - LAD Blood Pressure : / mmHG Vent. Rate : 098 BPM Atrial Rate : 098 BPM P-R Int : 194 ms QRS Dur : 102 ms QT Int : 372 ms P-R-T Axes : 067 -84 078 degrees QTc Int : 474 ms Normal sinus rhythm Low voltage QRS Left axis deviation Pulmonary disease pattern Prolonged QT Poor anterior R wave progression Nonspecific ST-T changes Abnormal ECG When compared with ECG of 17-AUG-2018 13:56, (Unconfirmed) Nonspecific T wave abnormality no longer evident in Inferior leads T wave inversion no longer evident in Lateral leads Confirmed by DR. Della WOOD (3) on 08/19/2018 5:23:11 PM Referred By: RAFA Confirmed By:DR. Della WOOD
[2018-08-19] MEDS: Metoprolol Tartrate 25 MG TAB PO SCH (20:06)
[2018-08-19] MEDS: Atorvastatin Calcium 40 MG TAB PO SCH (20:07)
[2018-08-19] MEDS: Cyclobenzaprine 10 MG TAB PO SCH (20:07)
--- NOTE | 2018-08-20 | CON ---
DATE OF CONSULTATION: 08/19/2018 HISTORY OF PRESENT ILLNESS: I am seeing, Mrs. Cagle at our [facility] as an electrophysiology consult. Her problems are: 1. Presentation with rapid long RP type tachycardia at 150 beats per minute. a. Good response to IV diltiazem. 2. Chest discomforts with history of coronary artery disease. a. Prior history of coronary bypass grafting surgery. b. Left heart catheterization today on 08/19/2018 demonstrates left anterior descending stenosis requiring stenting. Decreased LVEF. Drug eluting stent is placed. c. 2D echo from 07/20/2018 reveals mildly decreased LVEF with anterior wall and apex is hypokinetic. [id number] MR, [id number] TR, mild tricuspid regurgitation. d. History of diabetes, hypertension, hypothyroidism and obesity. 3. History of fibromyalgia and chronic pain. ALLERGIES: 1. INFLIXIMAB. 2. SULFAMETHOXAZOLE. MEDICATIONS: At home included: 1. [place]. 2. Proventil. 3. Aspirin. 4. Lipitor. 5. Plavix. 6. Flexeril. 7. D5W with dextrose. SUBJECTIVE: Mrs. Cagle was admitted to the hospital from her primary care physician's office where she was found to be tachycardic at rate of 150 beats per minute. She was fairly asymptomatic and initial diagnosis was atrial flutter, although EKG is more suggestive of a long RP type of 1:1 conducted tachycardia at 150 beats per minute. Cardizem was administered and that seems to have helped her. She does have history of rapid heart rates in 90s and 100s in the past. She has been evaluated for palpitations by Dr. Fang's office and the Holter monitor finding sinus rhythm and sinus tachycardia most of the time. She never passes out. Denies PND, orthopnea, or lower extremity edema. No fever, chills, or cough. No stroke-like symptoms. No neurological deficits. Rest of 12-point review of system otherwise unremarkable. PAST MEDICAL HISTORY: As above. The patient has history of type 1 diabetes, rheumatoid arthritis, PVD, GERD, hypertension, coronary artery disease, post bypass surgery, hypothyroidism, depression, fibromyalgia. PAST SURGICAL HISTORY: Significant for CABG x2 vessel, hysterectomy, 5th toe amputation, partial foot removal in april 2014. FAMILY HISTORY: Significant for diabetes and hypertension. Multiple family members and father of a massive heart attack in age 50. SOCIAL HISTORY: The patient denies smoking, EtOH or drug use. Quit 9 years ago , only had smoked 6 years. OBJECTIVE: VITAL SIGNS: Blood pressure is 129/78, heart rate 107, respirations 18, and temperature 98.6 degrees Fahrenheit. GENERAL: Alert and oriented, morbidly obese woman in no apparent distress. NECK: Supple. Jugular veins not distended. CHEST: Coarse without crackles. HEART: Sounds are regular to rate and rhythm. No murmur or gallop. ABDOMEN: Benign. Bowel sounds positive. EXTREMITIES: Lower extremity without edema, clubbing, or cyanosis. Right femoral catheter insertion site is without swelling. NEUROLOGIC: The patient is nonfocal. MUSCULOSKELETAL: Without joint swelling or deformity. SKIN: Without rash. DATABASE: EKG is reviewed. Again, the initial EKG reveals a narrow complex tachycardia with clear P waves preceding the QRS, may be about 160 milliseconds , but in the end of T-waves. I do not see additional P-waves and this seems to be a 1 :1 conducted sinus or atrial tachycardia. Subsequent EKGs reveal improvement with heart rate at 96 beats per minute with fairly similar pattern, otherwise noted. Telemetry strips reviewed revealing sinus rhythm, sinus tachycardia and short run of nonsustained wide-complex tachycardia noted couple of days ago. LABORATORY DATA: The white blood cell count is 10, hemoglobin 12.4, platelet count is 342. Sodium is 132, potassium 4.6, BUN is 10, and creatinine 0.71. ASSESSMENT AND PLAN: Mrs. Cagle is a pleasant 48-year-old female with prior history of hypertension, diabetes, neuropathy, peripheral vascular disease with amputation and prior bypass surgery, who presented with rapid heart rates in the 150 range. The EKG may suggest ectopic atrial tachycardia. She responded well to the initiated IV diltiazem therapy and maintained sinus rhythm thereafter. She does have a short run of nonsustained ventricular tachycardia. Her cardiac enzymes were slightly elevated at 0.156, 0.173 and she underwent a left heart catheterization demonstrating significant LAD disease and three vessel disease, but 3/3 bypass grafts are patent and she underwent stenting of the LAD. ASSESSMENT AND PLAN: At this point, I would continue observation for recurrent arrhythmias. Naturally, up titration of her beta leann therapy would be welcomed to maximum tolerated dose gradually. Currently, she is on 25 mg twice daily. If despite these efforts, she has recurrent atrial tachycardia like rhythms, we could consider EP study and ablation procedure or alternative antiarrhythmics. Hence , the recent stent placement. I would hold off on that until it becomes absolutely necessary. We discussed these issues with Dr. Fang. At this point, I am not convinced this lady had atrial flutter and anticoagulation would be likely not necessary, but she likely will receive dual anti-platelet therapy and recent drug-eluting stent anyway. Routine follow up in the office is requested in about 4 6 weeks. If recurrent palpitations are seen, repeat monitoring may be also be done. Job ID: [id number] MTDD
--- NOTE | 2018-08-20 05:19 | PDOC.FM ---
- Subjective Subjective: She said she slept well overnight. Tolerating po intake. She as no complaints. - Objective Vital Signs & Weight: Vital Signs (12 hours) Temp Pulse Resp BP Pulse Ox 08/20/18 04:00 98.7 F 99 20 160/73 H 93 L 08/19/18 23:38 91 20 126/66 94 L 08/19/18 20:06 97.4 F L 101 H 20 126/67 94 L Weight Admit Weight 122.47 kg Weight 122.924 kg I&O: 08/18/18 08/19/18 08/20/18 06:59 06:59 06:59 Intake Total 2760 1460 588 Output Total 2100 300 0 Balance 660 1160 588 Result Diagrams: 08/20/18 05:10 08/20/18 05:10 EKG Reviewed by me: Yes (Sinus rhythm with HR in the 90s.) Phys Exam - Physical Examination Constitutional: NAD HEENT: moist MMs, oral pharynx no lesions Neck: no nodes Respiratory: clear to auscultation bilateral Cardiovascular: RRR Gastrointestinal: soft, non-tender Musculoskeletal: no edema Neurological: moves all 4 limbs Lymphatic: no nodes Psychiatric: A&O x 3 Skin: normal turgor Dx/Plan (1) Atrial flutter Code(s): I48.92 - UNSPECIFIED ATRIAL FLUTTER Status: Acute Qualifiers: Atrial flutter type: typical Qualified Code(s): I48.3 - Typical atrial flutter (2) Bacteriuria Code(s): R82.71 - BACTERIURIA Status: Acute (3) Chronic pain Code(s): G89.29 - OTHER CHRONIC PAIN Status: Acute Qualifiers: Chronic pain type: other chronic pain Qualified Code(s): G89.29 - Other chronic pain (4) Diabetes mellitus type 1 Status: Acute Qualifiers: Diabetes mellitus complication status: with neurologic complications Diabetes mellitus complication detail: with unspecified neuropathy Qualified Code(s): E10.40 - Type 1 diabetes mellitus with diabetic neuropathy, unspecified (5) Diabetic neuropathy Code(s): E11.40 - TYPE 2 DIABETES MELLITUS WITH DIABETIC NEUROPATHY, UNSP Status: Acute Qualifiers: Diabetes mellitus type: type 1 Diabetes mellitus complication detail: with other neurological complication Qualified Code(s): E10.49 - Type 1 diabetes mellitus with other diabetic neurological complication (6) Elevated troponin Code(s): R74.8 - ABNORMAL LEVELS OF OTHER SERUM ENZYMES Status: Acute (7) Coronary artery disease Code(s): I25.10 - ATHSCL HEART DISEASE OF [place] CORONARY ARTERY W/O ANG PCTRS Status: Chronic Qualifiers: Coronary Disease-Associated Artery/Lesion type: bypass graft Associated angina: without angina (8) Fibromyalgia Status: Chronic (9) GERD (gastroesophageal reflux disease) Code(s): K21.9 - GASTRO-ESOPHAGEAL REFLUX DISEASE WITHOUT ESOPHAGITIS Status: Chronic Qualifiers: Esophagitis presence: esophagitis presence not specified Qualified Code(s) : K21.9 - Gastro-esophageal reflux disease without esophagitis - Plan Plan: Pt is 48 yo CF with history of Fibromyalgia, DM I with opthalmic & neuropathic complications, HTN, GERD who presents with new onset A-flutter. 1.Atrial Flutter - EKG: flutter with HR of 148 - Echo 07/20/18: difficult study, EF mildly depressed (36.2%) with distal anterior wall and apex hypokinesia. Mild/Mod regurg of Mitral & Tricuspid valves. - Started on Dilt gtt in the ED. T4, Mg, Phos wnl - Consulted card (Dr. Sesay 08/17), appreciate recs. He increased her Metoprolol from 25 mg BID to 50 mg BID. - Off Diltiazem drip. - Cath: 2 PCI/ Drug Eluting Stent placed in LAD. - Consulted EP (Dr. Perez ), appreciate recs. He recommends oupt f/u in 4-6 wks. No ablation needed at this time. 2. UTI -UA shows small blood, large amount of leukocyte esterase, 4-6 RBC, >50 WBC, Bacteria 4+ -Cx is + for E. coli, will treat with 1 gm Rocephin and Macrobid 100 mg Daily 5 days. -pt reports no urgency, frequency, dysuria; however, she does report foul smelling urine. 3. Rheumatoid Arthritis - Continue home meds: Prednisone and [place] 4. Elevated Troponin - Stable from prior visits -Trended down 5. Fibromyalgia - Continue home meds: Lyrica 6. Type 1 DM - Pt has insulin pump, continue home metformin - Complications include blindness 2/2 diabetic retinopathy, peripheral neuropathy - A1c 8.6% on 07/19/18 - CC diet 7. Depression - Continue home med: Venlafaxine 8. GERD - Continue home med: Protonix 9. HTN: -Holding Metoprolol for now 10. CAD s/p CABG x3v: - Continue home med: ASA, Atorvastatin (held Metoprolol) 11. Hypothyroidism - TSH wnl - Continue home med: Synthroid 12. Peripheral Neuropathy - Continue home Lyrica Diet: NPO Code Status: FULL DVT Ppx: Lovenox PCP: Dr Huff ([facility]) Dispo: Will d/c today.
[2018-08-20] MEDS: HYDROcodone/Acetaminophen 10/325 mg Tablet PO PRN ×2 (05:36→15:12)
[2018-08-20 05:43] LABS: #Eosinphils 0.3 thou/uL (0.0-0.7); #Lymphocytes 2.3 thou/uL (1.20-3.40); #Monocytes 0.7 thou/uL (0.11-0.59); #Neutrophils 5.9 thou/uL (1.40-6.50); %Basophils 0.2 % (0.0-1.0); %Eosinophils 2.7 % (0.0-10.0); %Lymphocytes 25.3 % (21.0-51.0); %Monocytes 7.9 % (0.0-10.0); %Neutrophils 63.9 % (42.0-75.0); Hemoglobin 10.1 g/dL (12.0-16.0); Mean Corpuscular Hemoglobin 22.6 pg (27.0-31.0); Mean Corpuscular Volume 75.2 fL (78.0-98.0); Mean Platelet Volume 7.5 fL (7.4-10.4); Platelet Count 338 thou/uL (130-400); RBC Distribution Width 15.1 % (11.5-14.5); Red Blood Cell (RBC) Count 4.48 mill/uL (4.20-5.40); White Blood Cell (WBC) Count 9.2 thou/uL (4.8-10.8)
[2018-08-20 06:02] LABS: ALT (SGPT) 48 U/L (8-55); AST (SGOT) 38 U/L (5-34); Alkaline Phosphatase 95 U/L (40-150); Anion Gap 12 mmol/L (10-20); BUN (Urea Nitrogen) 11 mg/dL (7.0-18.7); Bilirubin, Total 0.4 mg/dL (0.2-1.2); Calc. Creatinine Clearance 186 mL/min (70-130); Calcium 8.7 mg/dL (7.8-10.44); Carbon Dioxide 22 mmol/L (22-29); Chloride 102 mmol/L (98-107); Estimated GFR-MDRD 84; Globulin 3.7 g/dL (2.4-3.5); Glucose 172 mg/dL (70-105); Potassium 4.3 mmol/L (3.5-5.1); Protein, Total 6.7 g/dL (6.0-8.3); Sodium 132 mmol/L (136-145)
[2018-08-20] MEDS: Pregabalin 50 MG CAP PO SCH (08:25)
[2018-08-20] MEDS: Potassium Chloride 20 MEQ TAB PO SCH (08:26)
[2018-08-20] MEDS: Folic Acid 1 MG TAB PO SCH (08:27)
[2018-08-20] MEDS: Metoprolol Tartrate 25 MG TAB PO SCH (08:27)
[2018-08-20] MEDS: predniSONE 5 MG TAB PO SCH (08:27)
[2018-08-20] MEDS ORDERED: Clopidogrel Bisulfate 75 MG TAB PO SCH (09:00)
[2018-08-20] MEDS ORDERED: Nitrofurantoin Monohyd/M-Cryst 100 MG CAP PO SCH (09:00)
[2018-08-20] MEDS ORDERED: Aspirin Chewable 81 MG TAB PO SCH (09:00)
[2018-08-20] MEDS ORDERED: Metoprolol Tartrate 25 MG TAB PO SCH (11:00)
[2018-08-20] MEDS ORDERED: cefTRIAXone\\ROCEPHIN 1 GM in Sodium Chloride 0.9% 100 ML IVPB SCH (12:00)
--- NOTE | 2018-08-20 13:16 | PRG ---
DATE OF SERVICE: 08/20/2018 Ms. Cagle underwent catheterization yesterday with stent placement. She is feeling much better this morning. She is ready for discharge. She will need to remain on 1 year of dual platelet therapy given that she was given drug-eluting stents. Her rhythm is now normal sinus, and Dr. Salinas has felt we could hold back on any EP studies for now. We will increase her metoprolol and discharge her later this afternoon. Job ID: [id number]
[2018-08-20 15:18] VITALS: BP 118/59; TEMP 97.5
--- NOTE | 2018-08-20 17:10 | EKG ---
Test Reason : Blood Pressure : / mmHG Vent. Rate : 096 BPM Atrial Rate : 096 BPM P-R Int : 184 ms QRS Dur : 092 ms QT Int : 386 ms P-R-T Axes : 063 -71 120 degrees QTc Int : 487 ms Normal sinus rhythm Left axis deviation Cannot rule out Inferior infarct , age undetermined Poor anterior R wave progression Abnormal ECG When compared with ECG of 19-AUG-2018 13:03, ST now depressed in Inferior leads T wave inversion now evident in Lateral leads Confirmed by DR. Della WOOD (3) on 08/20/2018 5:10:18 PM Referred By: RAFA Confirmed By:DR. Della WOOD
[2018-08-20] MEDS ORDERED: Metoprolol Tartrate 50 MG TAB PO SCH (21:00)
--- NOTE | 2018-08-20 22:28 | DIS ---
DATE OF ADMISSION: 08/16/2018 DATE OF DISCHARGE: 08/20/2018 RESIDENT: Dr. Thiago Tellez ADMITTING ATTENDING: Dr. Tony Freeman DISCHARGING ATTENDING: Dr. Rey Hodgson CONSULTS: Senior Principal Software Engineer was Dr. Fang and EP was Dr. Perez. PRIMARY DIAGNOSES: 1. Coronary artery disease with 2 drug eluting stent placement in the LAD. Cath was done on 08/19. 2. New onset atrial flutter. OTHER DIAGNOSES: 1. Type 1 diabetes. 2. Rheumatoid arthritis. 3. Peripheral vascular disease. 4. Gastroesophageal reflux disease. 5. Hypertension. 6. Hypothyroidism. 7. Depression. DISCHARGE MEDICATIONS: 1. Plavix 75 mg daily. 2. Metoprolol tartrate 50 mg b.i.d. 3. Macrobid 100 mg b.i.d. x 4 days 4. Aspirin 81 mg daily. 5. Metformin 500 mg b.i.d. 6. Levothyroxine 150 mcg daily. 7. Lyrica 200 mg b.i.d. 8. Prednisone 5 mg b.i.d. 9. Folic acid 1 tab daily. 10. Cyclobenzaprine 5 mg t.i.d. 11. Atorvastatin 80 mg at bedtime. 12. Proventil inhaler and ProAir inhaler. DISCONTINUED MEDICATIONS: 1. [place] 10. 2. Nitroglycerin 0.4 mg tablet. 3. Protonix 40 mg daily. 4. Potassium chloride 20 mEq tablet. HISTORY OF PRESENT ILLNESS AND HOSPITAL COURSE: Ms. Cagle is a 48-year-old female with a past medical history of fibromyalgia, diabetes, hypothyroidism, hypertension, RA, presenting from the [facility] clinic after she was found to have heart rate in the 150s. She was asymptomatic. 1. Atrial Flutter 2/2 CAD She was initially found to be in atrial flutter in ER. She reports generalized weakness, transient dizziness upon standing. She denies any decreased p.o. intake, but does report nausea. She was hospitalized a month ago for tachycardia and found to have influenza. At discharge, her rate was within normal range. She endorses fever and chills that she has at baseline secondary to her RA. Throughout her stay, she was treated for the atrial flutter. On admission, she did have elevated troponins but they trended down throughout her stay. Heart rate was initially high at 148 and she got an echo on 07/20 that had showed depressed ejection fraction and a distal anterior wall and apex hypokinesia with moderate regurgitation of the mitral and tricuspid valve. She was started on a diltiazem drip by the ED and continued by Cardiology. Cardiology had EP involved and they initially thought they would do an ablation after her cath. She ended up going for a laborer syrup machine on 08/19 where they placed 2 drug eluting stents in the LAD. After, she had a regular rhythm, but was slightly tachycardic so Cardiology discontinued her diltiazem drip and increased her Metoprolol from 25 mg BID to 50 mg BID. EP determined that she did not need an ablation but to follow up with them in outpatient. 2. UTI. She was also found to have blood leukocytes and white blood cells and bacteria in her urine. It was cultured and found to be E coli. She was treated with 1 g of Rocephin and will be discharged with 4 days of Macrobid. 3. RA. We continued her home meds. 4. Fibromyalgia. We continued her home medications. 5. Type 1 diabetes. The patient had an insulin pump which she used and she took her home medication of metformin. She does have complications from her diabetes. She has diabetic retinopathy and peripheral neuropathy. Her A1c on 07/19 was 8.6. 6. GERD. We continued Protonix. 7. Hypertension. We gave her home dose of metoprolol 25 b.i.d. Throughout her hospital stay, it was determined that the metoprolol needed to be titrated up. Cardiology changed the dose to 50 mg b.i.d. 8. CAD, status post CABG x3 vessels. We continued her on her home medication of aspirin and atorvastatin and metoprolol. 9. Hypothyroidism. Her TSH was in normal limits. We continued her home Synthroid. 10. Peripheral neuropathy. We continued her home Lyrica. 11. Depression. We continued her venlafaxine for depression. DISPOSITION: She is stable following her cath yesterday. She has a normal sinus rhythm now. She is no longer in atrial flutter. DISCHARGE INSTRUCTIONS: 1. Location: Discharged home. 2. Diet: Low carb diabetic diet. 3. Activity: As tolerated. 4. Followup: With [facility] in 1 week. Follow up with Dr. Fang in 10 days, and follow up with Dr. Perez in 3 to 4 weeks. Job ID: [id number] MTDD
== END 2018-08-20 18:06 | disposition home or self-care (01) | DRG 247 ==
LOC: ERS 15:49 → 2NO 16:55
PROVIDERS: ADMIT Student in an Organized Health Care Education/Training Program; ATTEND Student in an Organized Health Care Education/Training Program
PROC: 027035Z Dilation of Coronary Artery, One Artery with Two Drug-eluting Intraluminal Devices, Percutaneous Approach (ICD-10-PCS; principal; 2018-08-19)
PROC: 4A023N7 Measurement of Cardiac Sampling and Pressure, Left Heart, Percutaneous Approach (ICD-10-PCS; 2018-08-19)
DX: I25.10 Atherosclerotic heart disease of native coronary artery without angina pectoris (principal); I48.92 Unspecified atrial flutter; N39.0 Urinary tract infection, site not specified; Z68.42 Body mass index [BMI] 45.0-49.9, adult; M06.9 Rheumatoid arthritis, unspecified; I73.9 Peripheral vascular disease, unspecified; K21.9 Gastro-esophageal reflux disease without esophagitis; I10 Essential (primary) hypertension; E03.9 Hypothyroidism, unspecified; F32.9 Major depressive disorder, single episode, unspecified; E66.9 Obesity, unspecified; M79.7 Fibromyalgia; G89.29 Other chronic pain; E10.319 Type 1 diabetes mellitus with unspecified diabetic retinopathy without macular edema; H54.8 Legal blindness, as defined in USA; E10.40 Type 1 diabetes mellitus with diabetic neuropathy, unspecified; Z79.01 Long term (current) use of anticoagulants; Z79.4 Long term (current) use of insulin; Z95.1 Presence of aortocoronary bypass graft; Z90.710 Acquired absence of both cervix and uterus; Z89.421 Acquired absence of other right toe(s); Z88.2 Allergy status to sulfonamides; Z88.8 Allergy status to other drugs, medicaments and biological substances
CPT/HCPCS: 36415; 36416; 80048; 80053; 82553; 82805; 83735; 84100; 84439; 84443; 84484; 85025; 85347; 87077; 87086; 87186; 92928; 93005; 93010; 93459; 96361; 96365; 96366; 99152; 99153; C1725; C1769; C1874; C1887; C9600; J0583; J0696; J1644; J1650; J2001; J2250; J3010; J3475; J3490; J7512; Q0162; Q9967

== ENCOUNTER 2018-12-30 15:46 | Observation (INO) | payer OTHER ==
[2018-12-30 16:11] LABS: #Basophils 0.1 thou/uL (0.0-0.2); #Eosinphils 0.2 thou/uL (0.0-0.7); #Lymphocytes 2.5 thou/uL (1.20-3.40); #Monocytes 0.5 thou/uL (0.11-0.59); #Neutrophils 7.6 thou/uL (1.40-6.50); %Basophils 0.8 % (0.0-1.0); %Eosinophils 2.1 % (0.0-10.0); %Monocytes 4.6 % (0.0-10.0); %Neutrophils 69.5 % (42.0-75.0); Hemoglobin 11.3 g/dL (12.0-16.0); Mean Corpuscular HGB CONC 31.1 g/dL (32.0-36.0); Mean Corpuscular Hemoglobin 23.7 pg (27.0-31.0); Mean Corpuscular Volume 76.3 fL (78.0-98.0); Mean Platelet Volume 8.3 fL (7.4-10.4); Platelet Count 335 thou/uL (130-400); RBC Distribution Width 18.5 % (11.5-14.5); Red Blood Cell (RBC) Count 4.76 mill/uL (4.20-5.40); White Blood Cell (WBC) Count 10.9 thou/uL (4.8-10.8)
[2018-12-30 16:32] LABS: ALT (SGPT) 20 U/L (8-55); AST (SGOT) 13 U/L (5-34); Albumin 3.5 g/dL (3.5-5.0); Alkaline Phosphatase 135 U/L (40-110); Anion Gap 12 mmol/L (10-20); BUN (Urea Nitrogen) 11 mg/dL (7.0-18.7); Bilirubin, Total 0.5 mg/dL (0.2-1.2); CK (CPK) 42 U/L (29-168); Calc. Creatinine Clearance 0 mL/min (70-130); Calcium 9.6 mg/dL (7.8-10.44); Carbon Dioxide 27 mmol/L (22-29); Chloride 103 mmol/L (98-107); Estimated GFR-MDRD 77; Globulin 3.7 g/dL (2.4-3.5); Glucose 245 mg/dL (70-105); Potassium 3.5 mmol/L (3.5-5.1); Protein, Total 7.2 g/dL (6.0-8.3); Sodium 138 mmol/L (136-145)
--- NOTE | 2018-12-30 16:33 | RAD ---
XR Chest Pa Lat STANDARD HISTORY: Shortness of breath and chest pain COMPARISON: 07/13/2015 study. FINDINGS: Heart size appears borderline with postop sternotomy changes. Pulmonary vessels are mildly engorged. There is some blunting to the posterior sulci suggesting possible small effusion. IMPRESSION: Borderline heart size with mild pulmonary vascular engorgement suggesting an early elemen t of edema.
--- NOTE | 2018-12-30 17:32 | ULT ---
EXAM: Left lower extremity venous Doppler HISTORY: Left lower extremity swelling and pain. FINDINGS: Grayscale, color-flow, Doppler evaluation, spectral analysis of the left lower extremity venous struc tures is performed with 2-D imaging. The left common femoral, superficial femoral, popliteal, posterior tibial, proximal greater saphenous and profunda femoral veins are imaged. There is normal luminal compressibility, flow, and augmentation in the visualized deep venous structu res of the left lower extremity. IMPRESSION: No evidence of a deep vein thrombosis in the visualized deep venous structures left lower extremity.
[2018-12-30] MEDS ORDERED: Furosemide 40 MG/4 ML VIAL ONE (17:36)
[2018-12-30] MEDS ORDERED: Aspirin Chewable 81 MG TAB ONE ×2 (18:21)
[2018-12-30] MEDS ORDERED: Oseltamivir 75 MG CAP PO SCH (18:30)
--- NOTE | 2018-12-30 18:38 | PDOC.FPRHP ---
- History of Present Illness Chief Complaint: Cough, SOB, Edema History of Present Illness: Patient is a 48 yo female with PMHx of HFrEF who presents with complaint of cough for 1 week that has been gradually worsening. She was seen at [facility] on , diagnosed with URI at that time and given Rx for Tessalon perles & Azithromycin. She was told not to take the Azithromycin until today (12/30) if symptoms persisted. She never picked up the prescription. Denies ever having had a fever. She says that for the last 4 days her left leg has become more swollen. She also started to have increased shortness of breath last night and through the day today which prompted her to come to the ED for evaluation. In the ED she was found to be Flu positive and was started on Tamiflu. Currently she still complains of a nonproductive cough and nasal congestion. Denies fever/ chills, n/v, abdominal pain, diarrhea, chest pain, myalgias. Of note the patient follows Dr. Fang for Cardiology. She recently saw him in the office in past month and was started on Lasix 20 mg daily. ED Course: Given Duoneb, ASA 324 mg, Lasix 40 IV, and Tamiflu 75 mg. Initial concern for DVT in LLE but doppler U/S negative - Allergies/Adverse Reactions Allergies Allergy/AdvReac Type Severity Reaction Status Date / Time infliximab Allergy Severe Anaphylaxis Verified 08/16/18 21:04 Sulfa (Sulfonamide Allergy Severe Verified 08/16/18 21:04 Antibiotics) sulfamethoxazole Allergy Verified 08/16/18 21:04 [From Bactrim] trimethoprim [From Bactrim] Allergy Verified 08/16/18 21:04 promethazine AdvReac Intermediate Anxiety Verified 08/16/18 21:04 adhesive AdvReac Verified 08/16/18 21:04 - Home Medications Medication Instructions Recorded Confirmed Type Pregabalin [Lyrica] 200 mg PO BID 09/07/12 12/30/18 History Atorvastatin Calcium [Lipitor] 80 mg PO HS 09/19/13 12/30/18 History Folic Acid 1 mg PO DAILY 09/19/13 12/30/18 History metFORMIN [Glucophage] 1,000 mg PO BID 08/26/14 12/30/18 History Cyclobenzaprine HCl 10 mg PO TID PRN 08/16/18 12/30/18 History HumaLOG [HumaLOG Vial] 2 units SC ASDIR PRN 08/16/18 12/30/18 History Aspirin Chewable [Aspirin Chewable 81 mg PO DAILY tab 08/20/18 12/30/18 Rx Tablet] Clopidogrel Bisulfate [Plavix] 75 mg PO DAILY #30 tab 08/20/18 12/30/18 Rx Metoprolol Tartrate [Lopressor] 50 mg PO BID #60 tab 08/20/18 12/30/18 Rx Albuterol Sulfate [Proair HFA] 3 puff INH Q4H PRN 12/30/18 12/30/18 History Furosemide [Lasix] 20 mg PO DAILY 12/30/18 12/30/18 History HYDROcodone Bit/APAP 10325 [[place]] 1 tab PO Q4H PRN 12/30/18 12/30/18 History Levothyroxine Sodium [Levo-T] 100 mcg PO DAILY 12/30/18 12/30/18 History Methotrexate Sodium [Trexall] 10 mg PO Q7D 12/30/18 12/30/18 History Pantoprazole [Protonix] 40 mg PO DAILY 12/30/18 12/30/18 History predniSONE 5 mg PO BID 12/30/18 12/30/18 History - History PMHx: HFrEF (last EF 35% in Sep 2018), DM1 with retinopathy and neuropathy, HTN , Hypothyroidism, Fibromyalgia, and HLD. PSHx: Multiple eye surgeries, 3VCABG, R 5th toe amputation, Stents x2, Hysterectomy, , L breast biopsy FHx: Dad- @ 50 due to MO, DM & HTN in multiple family members. Social: She smoked 27 years ago for 5 years 2-3 PPD, no alcohol or recreational drugs. - Review of Systems General: denies: fever/chills, weight/appetite/sleep changes, fatigue Eyes: denies: vision changes ENT: reports: nasal congestion Respiratory: reports: cough, shortness of breath Cardiovascular: reports: edema, orthopnea. denies: chest pain, palpitation Gastrointestinal: denies: nausea, vomiting, diarrhea, abdominal pain Genitourinary: denies: dysuria Skin: denies: rashes, lesions Musculoskeletal: denies: pain, tenderness Neurological: reports: numbness, weakness Psychological: denies: anxiety, depression - Vital signs BP: 131/69 HR: 87 RR: 20 Tmax: 98.0F Pox: 94% on RA Wt: 122 kg - Physical Exam Constitutional: NAD, awake, alert and oriented -Constitutional: obese, chronically ill appearing HEENT: normocephalic and atraumatic, EOMI, grossly normal hearing, MMM -HEENT: cataracts present bilaterally Neck: supple, no JVD Heart: RRR, normal S1/S2, no murmurs/rubs/gallops -Heart: decreased LE pulses bilaterally. 1-2+ pitting edema in LLE. Calf squeeze non- tender. Lungs: CTAB, no respiratory distress, no wheezing -Lungs: decreased air movement globally Abdomen: soft, non-tender, bowel sounds present Musculoskeletal: normal structure, normal tone Neurological: no focal deficit Skin: no rash/lesions, good turgor Heme/Lymphatic: no unusual bruising or bleeding Psychiatric: normal mood and affect, intact recent and remote memory FMR H&P: Results - Labs Result Diagrams: 12/30/18 15:57 12/30/18 15:57 Lab results: WBC 10.9 thou/uL (4.8-10.8) H 12/30/18 15:57 Hgb 11.3 g/dL (12.0-16.0) L 12/30/18 15:57 Hct 36.4 % (36.0-47.0) 12/30/18 15:57 MCV 76.3 fL (78.0-98.0) L 12/30/18 15:57 Plt Count 335 thou/uL (130-400) 12/30/18 15:57 Neutrophils % 69.5 % (42.0-75.0) 12/30/18 15:57 Sodium 138 mmol/L (136-145) 12/30/18 15:57 Potassium 3.5 mmol/L (3.5-5.1) 12/30/18 15:57 Chloride 103 mmol/L (98-107) 12/30/18 15:57 Carbon Dioxide 27 mmol/L (22-29) 12/30/18 15:57 BUN 11 mg/dL (7.0-18.7) 12/30/18 15:57 Creatinine 0.79 mg/dL (0.6-1.1) 12/30/18 15:57 Glucose 245 mg/dL (70-105) H 12/30/18 15:57 Calcium 9.6 mg/dL (7.8-10.44) 12/30/18 15:57 Total Bilirubin 0.5 mg/dL (0.2-1.2) 12/30/18 15:57 AST 13 U/L (5-34) 12/30/18 15:57 ALT 20 U/L (8-55) 12/30/18 15:57 Alkaline Phosphatase 135 U/L (40-110) H 12/30/18 15:57 Creatine Kinase 42 U/L (29-168) 12/30/18 15:57 B-Natriuretic Peptide 507.7 pg/mL (0-100) H 12/30/18 15:57 Serum Total Protein 7.2 g/dL (6.0-8.3) 12/30/18 15:57 Albumin 3.5 g/dL (3.5-5.0) 12/30/18 15:57 FMR H&P: A/P - Problem List (1) Acute exacerbation of CHF (congestive heart failure) Current Visit: No Status: Acute Code(s): I50.9 - HEART FAILURE, UNSPECIFIED (2) Swelling of left lower extremity Current Visit: No Status: Acute Code(s): M79.89 - OTHER SPECIFIED SOFT TISSUE DISORDERS (3) Diabetes mellitus type 1 Current Visit: No Status: Chronic Qualifiers: Diabetes mellitus complication status: with neurologic complications Diabetes mellitus complication detail: with unspecified neuropathy Qualified Code(s): E10.40 - Type 1 diabetes mellitus with diabetic neuropathy, unspecified - Plan Patient is a 48 yo female with complaint of SOB and LLE swelling is admitted for CHF exacerbation: #CHF Exacerbation -Lasix 40 po bid -Duonebs prn -Vitals q4h, strict I/Os -last Echo in September 2018 with EF 35-40% -sees Leoncio for outpatient cardiology #Diabetes mellitus, Type 1 -continue home meds: Metformin 1000 BID, has pump with Humalog 6 u/hr + 1u/5 carb sliding scale -Accuchecks ACHS -Hyperglycemia protocol #Influenza -positive for flu in ED -started on Tamiflu 75 mg in ED, will continue Diet: HH, low Na VTE: Lovenox 40 Code: FULL Dispo: Stable, admitted to observation on telemetry unit. Will continue to diurese and monitor fluid status. Anticipate LOS < 48 hrs. FMR H&P: Upper Level - Pertinent history 48 yo F here with complaint of acute worsening of SOB this morning. She has a known hx of HFrEF with her last echo in Sep showing EF of 35-40%. She states that she noticed a worsening of L leg edema over the past few days and woke up this morning with significant cough and SOB. She presented to the ER as she was concerned that she was having an exacerbation. In the ED she was found to have a BNP of 507 which appears to be around her baseline and her O2 sat was mid 90s on RA. Due to the unilateral swelling a Doppler was performed which was negative for DVT. Per pt she commonly only has L leg edema during an exacerbation. She was also found to be flu positive, though she denies fever, chills, n/v, or muscle aches. She was given 40mg of Lasix IV and was admitted to the hospital. PMHx HFrEF DM1 on insulin pump CARMINE Persistent Depressive Disorder Retinopathy Peripheral neuropathy RA Hypothyroid Osteoporosis CAD s/p CABG HTN Surgical hx 3v CABG Social Hx Former smoker Denies etoh, or drugs - Pertinent findings See medical intern note for full ROS, PE, vitals, and labs ROS General denies fever or chills CV Complains of LLE edema. Denies CP, palpitation Resp Complains of SOB and cough GI denies n/v/d/c or abdominal pain denies increased frequency or dysuria Neuro denies numbness or weakness PE General A&O x4, NAD HEENT NCAT CV RRR, no murmur Resp CTA, no respiratory distress Abd non tender, no distension, normal BS Extremities 2+ pitting edema to L knee. R leg WNL Neuro no focal deficits, CN II-XII grossly intact - Plan Date/Time: 12/30/181837 Brian Pennington DO, have evaluated this patient and agree with findings/plan as outlined by medical intern resident. Pertinent changes/additions are listed here. 1.CHF exacerbation, mild -Continue IV Lasix. Expect to transition back to PO in 24-48 hours -Strict I/O -Fluid restrict to 2500 mL -Monitor O2 demand, at this time she is on RA 2.Influenza B -Start Tamiflu -Motrin/Tylenol for fever -Tessalon for cough 3.CAD -Continue Plavix, statin, and metoprolol 4.DM1 -Continue home pump -Accucheck ACHS -Low carb diet 5.Hypothyroid -Continue synthroid 6.CARMINE -CPAP HS 7.RA - continue home MTX and prednisone PPx Lovenox Diet Regular Code Full Dispo: pt is currently in good condition. Plan to diurese over the next few days. Would expect dc home in 2-3 days Addendum - Attending - Attending Attestation Date/Time: 12/30/182139 I personally evaluated the patient and discussed the management with Drs. Thrasher and Mitchel I agree with the History, Examination, Assessment and Plan documented above with any addition or exceptions noted below. Patient was admitted for mild acute CHF exacerbation 2/2 influenza. Will increase dose of lasix for 2 days. Strict I/Os. Monitor daily weights. Continue home meds. Tamiflu started. Trend labs. Breathing treatments as needed. Supplemental O2 as needed. Increase daily steroid dose as needed for respiratory distress on underlying lung dz. Monitor glucose closely. Has insulin pump. Will continue. Adjust via ISS. Monitor closely. Possible d/c home in 2 days. Arvin
[2018-12-30 19:50] LABS: Troponin I 0.023 ng/mL (< 0.028)
[2018-12-30] MEDS ORDERED: Atorvastatin Calcium 40 MG TAB PO SCH ×2 (21:00→22:15)
[2018-12-30] MEDS ORDERED: predniSONE 5 MG TAB PO SCH ×2 (21:00→22:15)
[2018-12-30] MEDS ORDERED: Dextrose 5% in Water 1,000 ML IV PRN (21:02)
[2018-12-30] MEDS ORDERED: Acetaminophen 325 MG TAB PO PRN (21:02)
[2018-12-30] MEDS ORDERED: Ondansetron ODT 4 MG TAB PO PRN (21:02)
[2018-12-30] MEDS ORDERED: Dextrose 50% Abboject 50 ML SYRINGE SLOW IVP PRN (21:02)
[2018-12-30] MEDS ORDERED: Calcium Carbonate 500 MG ChewTAB PO PRN (21:02)
[2018-12-30 21:07] VITALS: BMI 44.9
[2018-12-30] MEDS ORDERED: Cyclobenzaprine 10 MG TAB PO PRN (21:51)
[2018-12-30] MEDS ORDERED: HYDROcodone/Acetaminophen 10/325 mg Tablet PO PRN (21:51)
[2018-12-30] MEDS ORDERED: HumaLOG 300 UNITS/3 ML VIAL SC PRN (21:51)
[2018-12-30] MEDS ORDERED: PROVENTIL INHALER 6.7 G (200 INHALATIONS) INH PRN (21:51)
[2018-12-30] MEDS ORDERED: Pregabalin 50 MG CAP PO SCH (22:15)
[2018-12-30] MEDS ORDERED: Metoprolol Tartrate 50 MG TAB PO SCH (22:15)
[2018-12-30 22:39] LABS: Troponin I 0.035 ng/mL (< 0.028)
[2018-12-30] MEDS ORDERED: Atorvastatin Calcium 20 MG TAB PO SCH (22:45)
[2018-12-31 05:01] LABS: #Basophils 0.1 thou/uL (0.0-0.2); #Eosinphils 0.2 thou/uL (0.0-0.7); #Lymphocytes 2.6 thou/uL (1.20-3.40); #Monocytes 0.6 thou/uL (0.11-0.59); #Neutrophils 8.6 thou/uL (1.40-6.50); %Basophils 0.6 % (0.0-1.0); %Eosinophils 1.6 % (0.0-10.0); %Lymphocytes 21.6 % (21.0-51.0); %Monocytes 4.8 % (0.0-10.0); %Neutrophils 71.4 % (42.0-75.0); Hemoglobin 10.8 g/dL (12.0-16.0); Mean Corpuscular HGB CONC 31.4 g/dL (32.0-36.0); Mean Corpuscular Hemoglobin 23.9 pg (27.0-31.0); Mean Corpuscular Volume 76.1 fL (78.0-98.0); Mean Platelet Volume 8.4 fL (7.4-10.4); Platelet Count 310 thou/uL (130-400); RBC Distribution Width 18.6 % (11.5-14.5); Red Blood Cell (RBC) Count 4.53 mill/uL (4.20-5.40); White Blood Cell (WBC) Count 12.1 thou/uL (4.8-10.8)
[2018-12-31 05:23] LABS: ALT (SGPT) 18 U/L (8-55); AST (SGOT) 9 U/L (5-34); Albumin 3.4 g/dL (3.5-5.0); Alkaline Phosphatase 114 U/L (40-110); Anion Gap 12 mmol/L (10-20); BUN (Urea Nitrogen) 14 mg/dL (7.0-18.7); Bilirubin, Total 0.4 mg/dL (0.2-1.2); Calc. Creatinine Clearance 164 mL/min (70-130); Calcium 9.2 mg/dL (7.8-10.44); Carbon Dioxide 29 mmol/L (22-29); Chloride 103 mmol/L (98-107); Estimated GFR-MDRD 79; Globulin 3.4 g/dL (2.4-3.5); Glucose 250 mg/dL (70-105); Potassium 3.3 mmol/L (3.5-5.1); Protein, Total 6.8 g/dL (6.0-8.3); Sodium 141 mmol/L (136-145)
[2018-12-31] MEDS ORDERED: Levothyroxine Sodium 100 MCG TAB PO SCH (06:00)
--- NOTE | 2018-12-31 06:34 | PDOC.FM ---
- Subjective Subjective: Pt flu B + on swab, started on tamiflu. States she is breathing a little better today, the nebulizer treatments have helped her tremendously. Camacho CP. + SOB, nasal congestion. - Objective MAR Reviewed: Yes Vital Signs & Weight: Vital Signs (12 hours) Temp Pulse Resp BP Pulse Ox 12/31/18 03:23 98.3 F 87 20 136/65 92 L 12/30/18 23:20 97.6 F 97 20 145/73 H 100 12/30/18 23:14 91 20 96 12/30/18 21:02 97.3 F L 87 18 138/69 98 Weight Weight 118.569 kg I&O: 12/29/18 12/30/18 12/31/18 06:59 06:59 06:59 Intake Total 480 Output Total 550 Balance -70 Result Diagrams: 12/31/18 04:39 12/31/18 04:39 Phys Exam - Physical Examination Constitutional: NAD HEENT: moist MMs, sclera anicteric Neck: no nodes, supple, full ROM Respiratory: no rales, no rhonchi, wheezing present, clear to auscultation bilateral Cardiovascular: RRR, no rub Gastrointestinal: soft, non-tender, no distention, positive bowel sounds Musculoskeletal: no edema, pulses present Neurological: non-focal, moves all 4 limbs Psychiatric: normal affect, A&O x 3 Skin: no rash, normal turgor, cap refill <2 seconds Dx/Plan (1) Influenza B Code(s): J10.1 - FLU DUE TO OTH IDENT INFLUENZA VIRUS W OTH RESP MANIFEST Status: Acute (2) Acute exacerbation of CHF (congestive heart failure) Code(s): I50.9 - HEART FAILURE, UNSPECIFIED Status: Acute (3) Coronary artery disease Code(s): I25.10 - ATHSCL HEART DISEASE OF [place] CORONARY ARTERY W/O ANG PCTRS Status: Chronic Qualifiers: Coronary Disease-Associated Artery/Lesion type: bypass graft Associated angina: without angina (4) Diabetes mellitus type 1 Status: Chronic Qualifiers: Diabetes mellitus complication status: with neurologic complications Diabetes mellitus complication detail: with unspecified neuropathy Qualified Code(s): E10.40 - Type 1 diabetes mellitus with diabetic neuropathy, unspecified (5) Fibromyalgia Status: Chronic (6) Hx of CABG Status: Chronic (7) Hyperlipemia Code(s): E78.5 - HYPERLIPIDEMIA, UNSPECIFIED Status: Chronic (8) Hypertension Code(s): I10 - ESSENTIAL (PRIMARY) HYPERTENSION Status: Chronic (9) Hypothyroidism Code(s): E03.9 - HYPOTHYROIDISM, UNSPECIFIED Status: Chronic - Plan Plan: 1.CHF exacerbation, mild. hx of HFrEF -Po lasix 40 mg BID. -Strict I/O -Fluid restrict to 1500 mL -Monitor O2 demand, at this time she is on RA 2.Influenza B + -Started Tamiflu on admission. -Motrin/Tylenol for fever -Tessalon for cough 3.CAD -Continue Plavix, statin, and metoprolol - stable 4.DM1 -Continue home insulin pump -Accucheck ACHS -Low carb diet 5.Hypothyroidism -Continue synthroid 6.CARMINE -CPAP, QHS 7.RA - continue home MTX and prednisone PPx Lovenox Diet CC, HH Code Full Dispo: pt stable. Plan to diurese over the next few days. Would expect dc home in 2-3 days Addendum - Attending - Attending Attestation Date/Time: 12/31/18 3121 I personally evaluated the patient and discussed the management with Dr. Rogers. I agree with the History, Examination, Assessment and Plan documented above with any addition or exceptions noted below. Patient reports feeling improved. She is back to euvolemia. Suspect this is more COPD exerbation related due to influenza. She is on Tamiflu. On breathing treatments and off O2 therapy. Ambulate and if feeling well today can likely d/ c home, otherwise may need 1 more day.
[2018-12-31] MEDS ORDERED: Insulin Regular 300 UNITS/3 ML VIAL SC PRN ×2 (06:44)
[2018-12-31] MEDS ORDERED: Dextrose 5% in Water 1,000 ML IV PRN (06:44)
[2018-12-31] MEDS ORDERED: Dextrose 50% Abboject 50 ML SYRINGE SLOW IVP PRN (06:44)
[2018-12-31] MEDS ORDERED: Potassium Chloride 20 MEQ TAB PO SCH (06:45)
[2018-12-31] MEDS ORDERED: Enoxaparin Sodium 40 MG/0.4 ML SYRINGE SC SCH (09:00)
[2018-12-31] MEDS ORDERED: Pregabalin 50 MG CAP PO SCH (09:00)
[2018-12-31] MEDS ORDERED: predniSONE 5 MG TAB PO SCH (09:00)
[2018-12-31] MEDS ORDERED: Folic Acid 1 MG TAB PO SCH (09:00)
[2018-12-31] MEDS ORDERED: Metoprolol Tartrate 50 MG TAB PO SCH (09:00)
[2018-12-31] MEDS ORDERED: Clopidogrel Bisulfate 75 MG TAB PO SCH (09:00)
[2018-12-31] MEDS ORDERED: Oseltamivir 75 MG CAP PO SCH (09:00)
[2018-12-31] MEDS ORDERED: Aspirin Chewable 81 MG TAB PO SCH (09:00)
[2018-12-31] MEDS: Furosemide 40 MG TAB PO SCH ×2 (09:05→14:13)
[2018-12-31 10:19] LABS: Hemoglobin A1c 9.4 % (4.0-6.0)
[2018-12-31 10:26] LABS: Iron Binding Capacity, Total 328 mcg/dL (265-497)
[2018-12-31 10:27] LABS: Iron 22 ug/dL (50-170)
[2018-12-31 10:53] LABS: Ferritin 24.93 ng/mL (10-291)
[2018-12-31 11:58] VITALS: BP 114/55; TEMP 97.5
[2018-12-31] MEDS ORDERED: Atorvastatin Calcium 40 MG TAB PO SCH (21:00)
--- NOTE | 2019-01-01 07:53 | DIS ---
DATE OF ADMISSION: 12/30/2018 DATE OF DISCHARGE: 12/31/2018 RESIDENT: Dana Rogers DO ADMITTING ATTENDING: Tricia Rausch MD DISCHARGE ATTENDING: Tony Freeman MD CONSULTS: None. PROCEDURES PERFORMED: None. DIAGNOSES: 1. Influenza B. 2. Mild congestive heart failure exacerbation. 3. Coronary artery disease, stable. 4. Diabetes mellitus, type 1. 5. Hypothyroidism. 6. Obstructive sleep apnea. 7. Rheumatoid arthritis. DISCHARGE MEDICATIONS: 1. Nebulizer machine and equipment. 2. ProAir inhaler three puffs inhaled q.4 hours. 3. Aspirin 81 mg p.o. daily. 4. Atorvastatin 80 mg p.o. at bedtime. 5. Plavix 75 mg p.o. daily. 6. Cyclobenzaprine 10 mg p.o. t.i.d. 7. Folic acid 1 mg p.o. daily, except for the day she takes methotrexate. 8. Furosemide 20 mg p.o. daily. 9. Humalog vial per home dosing 2 units SC 10. [place] 1 tab p.o. q.4 hours for pain. 11. DuoNeb 3 mL nebulizer q.4 hours p.r.n. for shortness of breath, cough or wheezing. 12. Levothyroxine 100 mcg p.o. daily. 13. Metformin 1000 mg p.o. b.i.d. 14. Methotrexate 10 mg p.o. every seven days. 15. Metoprolol 50 mg p.o. b.i.d. 16. Tamiflu 75 mg p.o. b.i.d. for 4 more days. 17. Pantoprazole 40 mg p.o. daily. 18. Prednisone 5 mg p.o. b.i.d. 19. Lyrica 200 mg p.o. b.i.d. HISTORY OF PRESENT ILLNESS/HOSPITAL COURSE: The patient is a 48-year-old female with a history of RA on immunosuppressive methotrexate and prednisone, COPD, HFrEF, hypertension, presents to the emergency department because of worsening shortness of breath and cough. The patient was diagnosed with upper respiratory infection in clinic on 12/26, prescribed Z-Philip and Tessalon Perles, which she never filled. The patient then felt much worse, developing body aches, came into the ER and was diagnosed with flu B on flu swab. The patient's chest x-ray showed mild early pulmonary edema. The patient was started on Lasix and was euvolemic at the time of discharge. The patient was also anemic with hemoglobin of 10.8, hematocrit 34.5. Folate is 15.6 in normal range. Vitamin B12 is 247 at the low end of normal range. On study, ferritin is 24.9 in normal range. TIBC is 328, normal range. Iron is low at 22. MCV was 76, so this is a microcytic anemia. Recommending that patient be started on iron 325 mg daily and to continue the folic acid. The patient also has a history of COPD and stated that the DuoNeb treatments helped her drastically with her cough, wheezing, and shortness of breath. So, I wrote the patient to have a nebulizer machine at home upon discharge and prescribed DuoNeb treatments for her at home. The patient was very thankful for this. The patient's lower extremity Doppler was negative for DVT. The patient was doing much better on the afternoon of 12/31, and wanted to go home to continue her therapy at home. DISPOSITION: Stable upon discharge. DISCHARGE INSTRUCTIONS: 1. Location: Home. 2. Diet: Heart healthy and consistent carb. 3. Activity: As tolerated. 4. Followup: Follow up with primary care at [facility] in one weeks' time. Job ID: [id number] [email or web address]
== END 2018-12-31 15:51 | disposition home or self-care (01) ==
LOC: ERS 15:46 → 2SW 18:11
PROVIDERS: ADMIT Student in an Organized Health Care Education/Training Program; ATTEND Student in an Organized Health Care Education/Training Program
DX: I11.0 Hypertensive heart disease with heart failure (principal); I50.20 Unspecified systolic (congestive) heart failure; J10.1 Influenza due to other identified influenza virus with other respiratory manifestations; M79.89 Other specified soft tissue disorders; E10.42 Type 1 diabetes mellitus with diabetic polyneuropathy; E10.319 Type 1 diabetes mellitus with unspecified diabetic retinopathy without macular edema; E03.9 Hypothyroidism, unspecified; G47.33 Obstructive sleep apnea (adult) (pediatric); F34.1 Dysthymic disorder; I25.10 Atherosclerotic heart disease of native coronary artery without angina pectoris; M81.0 Age-related osteoporosis without current pathological fracture; M06.9 Rheumatoid arthritis, unspecified; E66.9 Obesity, unspecified; Z68.41 Body mass index [BMI] 40.0-44.9, adult; Z79.4 Long term (current) use of insulin; Z79.82 Long term (current) use of aspirin; Z79.899 Other long term (current) drug therapy; Z87.891 Personal history of nicotine dependence; Z88.2 Allergy status to sulfonamides; Z88.8 Allergy status to other drugs, medicaments and biological substances; Z91.048 Other nonmedicinal substance allergy status; Z95.1 Presence of aortocoronary bypass graft; Z99.89 Dependence on other enabling machines and devices
CPT/HCPCS: 36415; 36416; 71046; 80053; 82550; 82607; 82728; 82746; 83036; 83540; 83550; 83880; 84484; 85025; 87804; 93005; 94640; 96372; 96374; G0378; J1650; J1940; J7512; J7620

== ENCOUNTER 2019-01-25 20:24 | Emergency (ER) | payer OTHER ==
[2019-01-25 20:54] LABS: Hemoglobin 12.6 g/dL (12.0-16.0); Mean Corpuscular HGB CONC 31.2 g/dL (32.0-36.0); Mean Corpuscular Hemoglobin 24.4 pg (27.0-31.0); Mean Corpuscular Volume 78.2 fL (78.0-98.0); RBC Distribution Width 17.1 % (11.5-14.5); Red Blood Cell (RBC) Count 5.15 mill/uL (4.20-5.40)
--- NOTE | 2019-01-25 21:02 | RAD ---
XR Chest 1 View Portable HISTORY: Chest pain COMPARISON: 09/25/2018 study FINDINGS: Heart size is borderline. Postop sternotomy changes are present. The lungs are clear of any infiltrative process. No signs of overt failure. IMPRESSION: Borderline heart size.
[2019-01-25 21:18] LABS: Anisocytosis SLIGHT = 6-15 cells (100X) (0-5/hpf); Band 1 % (5-11); Eosinophils 2 % (0-10); Lymphocytes 30 % (21-51); MDiff Complete? YES; Mean Platelet Volume 9.1 fL (7.4-10.4); Monocytes 3 % (0-10); Neutrophil 64 % (42-75); Platelet Count 337 thou/uL (130-400); White Blood Cell (WBC) Count 10.3 thou/uL (4.8-10.8)
[2019-01-25 21:33] LABS: CKMB 1.5 ng/mL (0-6.6)
[2019-01-25] MEDS ORDERED: Furosemide 40 MG/4 ML VIAL ONE (21:36)
[2019-01-25 21:46] LABS: INR-International Normal Ratio 1.1; PTT 28.4 SEC (22.9-36.1); Prothrombin Time 14.2 SEC (12.0-14.7)
[2019-01-25 21:53] LABS: Albumin 3.3 g/dL (3.5-5.0)
[2019-01-25 21:54] LABS: Chloride 102 mmol/L (98-107); Potassium 3.6 mmol/L (3.5-5.1); Sodium 135 mmol/L (136-145)
[2019-01-25 21:55] LABS: Glucose 426 mg/dL (70-105)
[2019-01-25 21:56] LABS: Globulin 3.6 g/dL (2.4-3.5); Protein, Total 6.9 g/dL (6.0-8.3)
[2019-01-25 21:57] LABS: Anion Gap 14 mmol/L (10-20); Bilirubin, Total 0.6 mg/dL (0.2-1.2); Carbon Dioxide 23 mmol/L (22-29)
[2019-01-25 21:58] LABS: Alkaline Phosphatase 99 U/L (40-110)
[2019-01-25 21:59] LABS: BUN (Urea Nitrogen) 11 mg/dL (7.0-18.7); Calc. Creatinine Clearance 0 mL/min (70-130); Estimated GFR-MDRD 73
[2019-01-25 22:00] LABS: AST (SGOT) 9 U/L (5-34)
[2019-01-25 22:01] LABS: ALT (SGPT) 9 U/L (8-55); CK (CPK) 40 U/L (29-168); Lipase 8 U/L (8-78)
[2019-01-25] MEDS ORDERED: HYDROcodone/Acetaminophen 5/325 mg Tablet ONE (22:02)
[2019-01-25 23:11] LABS: Troponin I 0.033 ng/mL (< 0.028)
--- NOTE | 2019-01-28 14:35 | EKG ---
Test Reason : Blood Pressure : / mmHG Vent. Rate : 095 BPM Atrial Rate : 095 BPM P-R Int : 186 ms QRS Dur : 102 ms QT Int : 396 ms P-R-T Axes : 036 -70 084 degrees QTc Int : 497 ms Normal sinus rhythm Left axis deviation Nonspecific T wave abnormality Prolonged QT Abnormal ECG Confirmed by EDISON HNEDERSON DO ([id number]), brands editor CINDY FULLER ([id number] on 01/28/2019 2:35:27 PM Referred By: Confirmed By:EDISON HENDERSON DO
== END 2019-01-25 23:39 | disposition home or self-care (01) ==
LOC: ERS 20:24
DX: I11.0 Hypertensive heart disease with heart failure (principal); I50.9 Heart failure, unspecified; E10.319 Type 1 diabetes mellitus with unspecified diabetic retinopathy without macular edema; E03.9 Hypothyroidism, unspecified; M06.9 Rheumatoid arthritis, unspecified; M79.7 Fibromyalgia; M19.90 Unspecified osteoarthritis, unspecified site; Z87.891 Personal history of nicotine dependence; Z79.82 Long term (current) use of aspirin; Z79.01 Long term (current) use of anticoagulants; Z79.899 Other long term (current) drug therapy; Z79.52 Long term (current) use of systemic steroids
CPT/HCPCS: 36415; 71045; 80053; 82550; 82553; 83690; 83880; 84484; 85025; 85610; 85730; 93005; 96374; J1940

== ENCOUNTER 2019-04-08 12:24 | Outpatient (CLI) | payer OTHER ==
--- NOTE | 2019-04-08 13:32 | RAD ---
PA AND LATERAL VIEWS CHEST: 04/08/19 HISTORY: Dyspnea. COMPARISON: 12/30/18 FINDINGS/IMPRESSION: Changes of median sternotomy again seen. The heart size is borderline. There is mild prominence of th e pulmonary vascularity. No lobar consolidation, pneumothoraces or large pleural effusions are seen. POS: [facility]
== END 2019-04-08 12:25 | disposition home or self-care (01) ==
LOC: RAD 12:24
PROVIDERS: ATTEND Internal Medicine Pulmonary Disease
DX: R06.00 Dyspnea, unspecified (principal)
CPT/HCPCS: 71046

== ENCOUNTER 2020-09-12 17:34 | Inpatient (IN) | payer OTHER ==
[~2020-09-12 17:34] MED LIST: Iopamidol-370 76% 500 ML 1 ML ONE
[2020-09-12] MEDS ORDERED: Naloxone HCl 0.4 mg/ml Vial ONE ×2 (18:06→18:19)
[2020-09-12 18:18] LABS: Hemoglobin 12.1 g/dL (12.0-16.0); Mean Corpuscular HGB CONC 33.6 g/dL (32.0-36.0); Mean Corpuscular Hemoglobin 29.7 pg (27.0-31.0); Mean Corpuscular Volume 88.5 fL (78.0-98.0); Mean Platelet Volume 7.8 fL (7.4-10.4); Platelet Count 307 thou/uL (130-400); RBC Distribution Width 14.5 % (11.5-14.5); Red Blood Cell (RBC) Count 4.06 mill/uL (4.20-5.40); White Blood Cell (WBC) Count 18.2 thou/uL (4.8-10.8)
[2020-09-12 18:21] LABS: Bilirubin Negative (Negative); Blood, Urine Negative (Negative); Clarity Turbid (Clear); Glucose, Urine (Dipstick) Greater than 1000 mg/dL (Negative); Ketone, Urine Negative (Negative); Leukocyte 250 Leu/uL (Negative); Nitrite Negative (Negative); Protein, Urine (Dipstick) Negative (Neg-Trace); RBC/HPF 0-3 HPF (0-3); Specific Gravity, Urine 1.022 (1.002-1.036); Squamous Epithelial 0-3 HPF (0-3); Urobilinogen 3 mg/dL (Less than 2); WBC/HPF 21-50 HPF (0-3); pH, Urine 5.5 (5.0-9.0)
[2020-09-12 18:22] LABS: Bacteria/HPF 1+ HPF (None Seen)
[2020-09-12] MEDS ORDERED: Norepinephrine 8 MG/0.9% NS 250 ML ONE (18:24)
[2020-09-12 18:32] LABS: ALT (SGPT) 23 U/L (8-55); AST (SGOT) 14 U/L (5-34); Albumin 3.1 g/dL (3.5-5.0); Alkaline Phosphatase 87 U/L (40-110); Anion Gap 16 mmol/L (10-20); BUN (Urea Nitrogen) 19 mg/dL (9.8-20.1); Bilirubin, Total 1.5 mg/dL (0.2-1.2); Calc. Creatinine Clearance 0 mL/min (70-130); Calcium 8.5 mg/dL (7.8-10.44); Carbon Dioxide 23 mmol/L (22-29); Chloride 104 mmol/L (98-107); Globulin 2.8 g/dL (2.4-3.5); Glucose 113 mg/dL (70-105); Lipase 7 U/L (8-78); Magnesium 1.7 mg/dL (1.6-2.6); Potassium 3.8 mmol/L (3.5-5.1); Protein, Total 5.9 g/dL (6.0-8.3); Sodium 139 mmol/L (136-145)
[2020-09-12 18:34] LABS: Amphetamine Not Detected (NotDetected); Barbiturates Screen Not Detected (NotDetected); Benzodiazepine Screen Not Detected (NotDetected); Cocaine Metabolite Screen Not Detected (NotDetected); Methadone Not Detected (NotDetected); Methamphetamine Not Detected (NotDetected); Opiate Screen Detected (NotDetected); Oxycodone Screen Not Detected (NotDetected); Phencyclidine (PCP) Not Detected (NotDetected); THC/Cannabinoid Screen Not Detected (NotDetected); Tricyclic Screen Not Detected (NotDetected)
[2020-09-12 18:34] LABS: Band 4 % (5-11); Eosinophils 2 % (0-10); Lymphocytes 22 % (21-51); MDiff Complete? YES; Monocytes 4 % (0-10); Neutrophil 68 % (42-75); Platelet Morphology Comment Appears Adequate; RBC Morphology Normal; Vacuoles SLIGHT
[2020-09-12 19:03] LABS: Acetaminophen Less than 6.0 mcg/mL (10.0-30.0); Alcohol Less than 10 mg/dL (Less than 10); Salicylate Less than 8.0 mg/dL (15.0-30.0)
[2020-09-12 19:06] LABS: CKMB 6.7 ng/mL (0-6.6)
[2020-09-12 19:11] LABS: Actual Bicarbonate (HCO3a) 20.6 mEq/L (22-28); Analyzer IN Cardio ER; Base Excess (BEa) -6.8 mEq/L (-2.0 to +3.0); CO2 Tension 49.3 mmHg (35.0-45.0); Hemoglobin (Hb) 12.1 g/dL (12.0-16.0); Potassium - ABG Lab 3.26 mmol/L (3.70-5.30)
[2020-09-12] MEDS ORDERED: Sodium Bicarb 50 MEQ/50 ML Abboject 8.4% SYRINGE ONE (19:18)
[2020-09-12 19:25] LABS: O2 Tension (PaO2), arterial 49.3 mmHg (80.0-100.0); pH, Arterial 7.24 (7.35-7.45)
[2020-09-12 19:26] LABS: Puncture Site LRA
[2020-09-12 19:27] LABS: ALV-art Gradient 530.775 mmHg (0-20)
[2020-09-12] MEDS ORDERED: cefTRIAXone\\ROCEPHIN 1 GM VIAL ONE (20:08)
[2020-09-12] MEDS ORDERED: Acetaminophen 325 MG TAB PO PRN (21:05)
[2020-09-12] MEDS ORDERED: Enoxaparin Sodium 40 MG/0.4 ML SYRINGE SC SCH (21:15)
[2020-09-12 21:20] LABS: Actual Bicarbonate (HCO3v) 23 mEq/L (22-28); Analyzer IN Cardio ER; Calcium, Ionized (venous) 1.02 mmol/L (1.16-1.32); Chloride (VBG) 108 mmol/L (98-106); Hemoglobin (Hb) 12.6 g/dL (11.7-16.0); pH (venous) 7.29 (7.32-7.43)
[2020-09-12 21:22] LABS: Lactic Acid 2.4 mmol/L (0.5-2.2)
[2020-09-12] MEDS ORDERED: Dextrose 5% in Water 1,000 ML IV PRN (21:26)
[2020-09-12] MEDS ORDERED: Dextrose 50% Abboject 50 ML SYRINGE SLOW IVP PRN (21:26)
[2020-09-12] MEDS ORDERED: Norepinephrine 8 MG/0.9% NS 250 ML IVPB SCH (21:30)
[2020-09-12] MEDS ORDERED: Vancomycin 1 GM/200 ML BAG ONE (22:38)
[2020-09-12] MEDS ORDERED: Hydrocortisone Sod Succ/PF 100 mg/2 ml Vial IVP SCH (22:45)
[2020-09-12 22:48] LABS: SARS-CoV-2 NAA Rapid Test Not Detected (NotDetected)
[2020-09-12 23:47] LABS: Troponin I 3.388 ng/mL (< 0.028)
[2020-09-13 02:13] LABS: Lactic Acid 1.1 mmol/L (0.5-2.2)
[2020-09-13 02:18] LABS: Hemoglobin 11.5 g/dL (12.0-16.0); Mean Corpuscular HGB CONC 32.4 g/dL (32.0-36.0); Mean Corpuscular Hemoglobin 28.9 pg (27.0-31.0); Mean Corpuscular Volume 89.3 fL (78.0-98.0); Mean Platelet Volume 7.1 fL (7.4-10.4); Platelet Count 317 thou/uL (130-400); RBC Distribution Width 14.8 % (11.5-14.5); Red Blood Cell (RBC) Count 3.99 mill/uL (4.20-5.40); White Blood Cell (WBC) Count 20.3 thou/uL (4.8-10.8)
[2020-09-13] MEDS ORDERED: Albuterol Sulfate 2.5 mg/3 ml Neb NEB PRN (02:22)
[2020-09-13 02:29] LABS: Troponin I 7.084 ng/mL (< 0.028)
[2020-09-13 02:30] LABS: Band 7 % (5-11); Eosinophils 2 % (0-10); Lymphocytes 19 % (21-51); MDiff Complete? YES; Monocytes 1 % (0-10); Neutrophil 68 % (42-75); Nucleated RBC 1 % (0); Platelet Morphology Comment Appears Adequate; RBC Morphology Normal; Reactive Lymphocytes 3 % (0-10)
[2020-09-13 02:32] LABS: ALT (SGPT) 25 U/L (8-55); AST (SGOT) 37 U/L (5-34); Albumin 2.8 g/dL (3.5-5.0); Alkaline Phosphatase 79 U/L (40-110); Anion Gap 12 mmol/L (10-20); BUN (Urea Nitrogen) 22 mg/dL (9.8-20.1); Calc. Creatinine Clearance 0 mL/min (70-130); Carbon Dioxide 23 mmol/L (22-29); Chloride 107 mmol/L (98-107); Glucose 164 mg/dL (70-105); Potassium 3.8 mmol/L (3.5-5.1); Protein, Total 5.8 g/dL (6.0-8.3); Sodium 138 mmol/L (136-145)
[2020-09-13 02:52] VITALS: BMI 52.3
[2020-09-13] MEDS ORDERED: Vancomycin HCl 1.5 GM in Sodium Chloride 0.9% 250 ML 300 ML IVPB SCH (03:00)
[2020-09-13] MEDS ORDERED: Enoxaparin Sodium 40 MG/0.4 ML SYRINGE SC SCH ×2 (03:30→09:00)
[2020-09-13] MEDS: Lactated Ringer's 1,000 ML IV SCH ×6 (03:36→23:06)
[2020-09-13] MEDS: Enoxaparin Sodium 100 MG/ML SYRINGE SC SCH (03:38)
[2020-09-13 04:31] LABS: INR-International Normal Ratio 1.3; PTT 36.7 sec (22.9-36.1); Prothrombin Time 15.8 sec (12.0-14.7)
[2020-09-13 05:41] LABS: Troponin I 7.403 ng/mL (< 0.028)
[2020-09-13] MEDS: Levothyroxine Sodium 50 MCG TAB PO SCH (05:45)
[2020-09-13] MEDS: Hydrocortisone Sod Succ/PF 100 mg/2 ml Vial IVP SCH ×3 (05:46→16:27)
[2020-09-13] MEDS ORDERED: VANCOMYCIN IVPB SCH (06:00)
[2020-09-13 07:50] LABS: Critical Call Chem Troponin I RESULT DECREASING; Troponin I 6.966 ng/mL (< 0.028)
[2020-09-13] MEDS ORDERED: Famotidine 20 MG TAB PO SCH (09:00)
[2020-09-13] MEDS: Clopidogrel Bisulfate 75 MG TAB PO SCH (09:19)
[2020-09-13] MEDS: Aspirin Chewable 81 MG TAB PO SCH (09:19)
[2020-09-13] MEDS: Lantus 1000 UNITS/10 ML VIAL SC SCH (09:20)
[2020-09-13] MEDS: Pregabalin 50 MG CAP PO SCH ×2 (09:20→22:58)
[2020-09-13] MEDS: Vancomycin 1 GM in Premix Bag 1 BAG IVPB SCH ×2 (10:05→22:59)
[2020-09-13] MEDS: Mometasone 200 MCG/Formoterol 5 MCG 120 PUFF INHALER INH SCH ×2 (10:52→18:58)
[2020-09-13] MEDS: Enoxaparin Sodium 40 MG/0.4 ML SYRINGE SC SCH (17:00)
[2020-09-13] MEDS: HumaLOG 300 UNITS/3 ML VIAL SC PRN (17:07)
[2020-09-13] MEDS ORDERED: Enoxaparin Sodium 100 MG/ML SYRINGE SC SCH (18:00)
[2020-09-13] MEDS ORDERED: Lantus 1000 UNITS/10 ML VIAL SC SCH (21:00)
[2020-09-13] MEDS: HYDROcodone/Acetaminophen 10/325 mg Tablet PO PRN (22:58)
[2020-09-13] MEDS: Atorvastatin Calcium 40 MG TAB PO SCH (22:59)
[2020-09-13] MEDS: cefTRIAXone\\ROCEPHIN 2 GM in Sodium Chloride 0.9% 100 ML IVPB SCH (22:59)
[2020-09-14 04:47] LABS: #Eosinphils 0.2 thou/uL (0.0-0.7); #Lymphocytes 2.9 thou/uL (1.20-3.40); #Monocytes 0.5 thou/uL (0.11-0.59); #Neutrophils 4.6 thou/uL (1.40-6.50); %Basophils 0.3 % (0.0-1.0); %Eosinophils 2.4 % (0.0-10.0); %Lymphocytes 35.1 % (21.0-51.0); %Monocytes 5.9 % (0.0-10.0); %Neutrophils 56.3 % (42.0-75.0); Hemoglobin 10.3 g/dL (12.0-16.0); Mean Corpuscular HGB CONC 32.6 g/dL (32.0-36.0); Mean Corpuscular Hemoglobin 29.3 pg (27.0-31.0); Mean Corpuscular Volume 89.7 fL (78.0-98.0); Mean Platelet Volume 7.6 fL (7.4-10.4); Platelet Count 212 thou/uL (130-400); RBC Distribution Width 14.4 % (11.5-14.5); Red Blood Cell (RBC) Count 3.53 mill/uL (4.20-5.40); White Blood Cell (WBC) Count 8.1 thou/uL (4.8-10.8)
[2020-09-14 05:41] LABS: ALT (SGPT) 26 U/L (8-55); AST (SGOT) 25 U/L (5-34); Albumin 2.6 g/dL (3.5-5.0); Alkaline Phosphatase 81 U/L (40-110); Anion Gap 10 mmol/L (10-20); BUN (Urea Nitrogen) 22 mg/dL (9.8-20.1); Bilirubin, Total 0.5 mg/dL (0.2-1.2); Calc. Creatinine Clearance 167 mL/min (70-130); Calcium 8.7 mg/dL (7.8-10.44); Carbon Dioxide 26 mmol/L (22-29); Chloride 105 mmol/L (98-107); Globulin 3.1 g/dL (2.4-3.5); Glucose 276 mg/dL (70-105); Protein, Total 5.7 g/dL (6.0-8.3); Sodium 137 mmol/L (136-145)
[2020-09-14] MEDS: Levothyroxine Sodium 50 MCG TAB PO SCH (05:57)
[2020-09-14] MEDS: HumaLOG 300 UNITS/3 ML VIAL SC PRN ×4 (05:57→20:49)
[2020-09-14] MEDS: Enoxaparin Sodium 40 MG/0.4 ML SYRINGE SC SCH ×2 (05:57→16:57)
[2020-09-14] MEDS: HYDROcodone/Acetaminophen 10/325 mg Tablet PO PRN ×2 (06:00→16:56)
[2020-09-14] MEDS: Lactated Ringer's 1,000 ML IV SCH (06:38)
[2020-09-14] MEDS: Mometasone 200 MCG/Formoterol 5 MCG 120 PUFF INHALER INH SCH ×2 (07:27→19:02)
[2020-09-14] MEDS: Pregabalin 50 MG CAP PO SCH ×2 (08:14→20:05)
[2020-09-14] MEDS: Aspirin Chewable 81 MG TAB PO SCH (08:14)
[2020-09-14] MEDS: predniSONE 20 MG TAB PO SCH ×2 (08:15→20:06)
[2020-09-14] MEDS: Clopidogrel Bisulfate 75 MG TAB PO SCH (08:15)
[2020-09-14] MEDS: Lantus 1000 UNITS/10 ML VIAL SC SCH (08:17)
[2020-09-14] MEDS ORDERED: Furosemide 20 MG TAB PO SCH (09:00)
[2020-09-14] MEDS: Furosemide 40 MG TAB PO SCH (10:37)
[2020-09-14] MEDS ORDERED: Lantus 1000 UNITS/10 ML VIAL SC SCH (16:58)
[2020-09-14] MEDS: cefTRIAXone\\ROCEPHIN 2 GM in Sodium Chloride 0.9% 100 ML IVPB SCH (20:04)
[2020-09-14] MEDS: Ondansetron ODT 4 MG TAB PO PRN (20:05)
[2020-09-14] MEDS: Atorvastatin Calcium 40 MG TAB PO SCH (20:06)
[2020-09-15 04:39] LABS: Hemoglobin 10.9 g/dL (12.0-16.0); Red Blood Cell (RBC) Count 3.69 mill/uL (4.20-5.40)
[2020-09-15 04:40] LABS: #Eosinphils 0.1 thou/uL (0.0-0.7); #Lymphocytes 1.3 thou/uL (1.20-3.40); #Monocytes 0.2 thou/uL (0.11-0.59); #Neutrophils 5.4 thou/uL (1.40-6.50); %Basophils 0.1 % (0.0-1.0); %Eosinophils 0.8 % (0.0-10.0); %Lymphocytes 18.9 % (21.0-51.0); %Monocytes 3.1 % (0.0-10.0); %Neutrophils 77.1 % (42.0-75.0); Mean Corpuscular HGB CONC 33.1 g/dL (32.0-36.0); Mean Corpuscular Hemoglobin 29.4 pg (27.0-31.0); Mean Platelet Volume 8.5 fL (7.4-10.4); Platelet Count 195 thou/uL (130-400); RBC Distribution Width 14.1 % (11.5-14.5)
[2020-09-15 05:03] LABS: ALT (SGPT) 24 U/L (8-55); AST (SGOT) 14 U/L (5-34); Albumin 2.8 g/dL (3.5-5.0); Alkaline Phosphatase 80 U/L (40-110); Anion Gap 10 mmol/L (10-20); BUN (Urea Nitrogen) 16 mg/dL (9.8-20.1); Bilirubin, Total 0.4 mg/dL (0.2-1.2); Calc. Creatinine Clearance 172 mL/min (70-130); Calcium 9.1 mg/dL (7.8-10.44); Carbon Dioxide 29 mmol/L (22-29); Chloride 102 mmol/L (98-107); Globulin 3.6 g/dL (2.4-3.5); Glucose 287 mg/dL (70-105); Potassium 4.4 mmol/L (3.5-5.1); Protein, Total 6.4 g/dL (6.0-8.3); Sodium 137 mmol/L (136-145)
[2020-09-15] MEDS: HumaLOG 300 UNITS/3 ML VIAL SC PRN ×4 (05:25→20:58)
[2020-09-15] MEDS: Enoxaparin Sodium 40 MG/0.4 ML SYRINGE SC SCH ×2 (05:25→17:48)
[2020-09-15] MEDS: Levothyroxine Sodium 50 MCG TAB PO SCH (05:25)
[2020-09-15] MEDS: Mometasone 200 MCG/Formoterol 5 MCG 120 PUFF INHALER INH SCH ×2 (07:17→18:16)
[2020-09-15] MEDS: Lantus 1000 UNITS/10 ML VIAL SC SCH (09:00)
[2020-09-15] MEDS: Clopidogrel Bisulfate 75 MG TAB PO SCH (09:01)
[2020-09-15] MEDS: Aspirin Chewable 81 MG TAB PO SCH (09:01)
[2020-09-15] MEDS: predniSONE 20 MG TAB PO SCH ×2 (09:01→20:17)
[2020-09-15] MEDS: Furosemide 40 MG TAB PO SCH (09:01)
[2020-09-15] MEDS: Pregabalin 50 MG CAP PO SCH ×2 (09:06→20:16)
[2020-09-15] MEDS: HYDROcodone/Acetaminophen 10/325 mg Tablet PO PRN ×2 (17:47→23:40)
[2020-09-15] MEDS: cefTRIAXone\\ROCEPHIN 2 GM in Sodium Chloride 0.9% 100 ML IVPB SCH (20:16)
[2020-09-15] MEDS: Atorvastatin Calcium 40 MG TAB PO SCH (20:17)
[2020-09-15] MEDS ORDERED: Lantus 1000 UNITS/10 ML VIAL SC SCH (21:00)
[2020-09-15] MEDS: Ondansetron ODT 4 MG TAB PO PRN (23:40)
[2020-09-16 05:10] LABS: #Monocytes 0.4 thou/uL (0.11-0.59); #Neutrophils 5.2 thou/uL (1.40-6.50); %Basophils 0.2 % (0.0-1.0); %Eosinophils 0.5 % (0.0-10.0); %Lymphocytes 25.7 % (21.0-51.0); %Monocytes 5.7 % (0.0-10.0); Hemoglobin 10.9 g/dL (12.0-16.0); Mean Corpuscular HGB CONC 32.4 g/dL (32.0-36.0); Mean Corpuscular Hemoglobin 28.3 pg (27.0-31.0); Mean Corpuscular Volume 87.4 fL (78.0-98.0); Mean Platelet Volume 7.8 fL (7.4-10.4); Platelet Count 253 thou/uL (130-400); RBC Distribution Width 14.1 % (11.5-14.5); Red Blood Cell (RBC) Count 3.85 mill/uL (4.20-5.40); White Blood Cell (WBC) Count 7.7 thou/uL (4.8-10.8)
[2020-09-16 05:35] LABS: ALT (SGPT) 20 U/L (8-55); AST (SGOT) 8 U/L (5-34); Albumin 2.7 g/dL (3.5-5.0); Alkaline Phosphatase 78 U/L (40-110); Anion Gap 8 mmol/L (10-20); BUN (Urea Nitrogen) 18 mg/dL (9.8-20.1); Bilirubin, Total 0.3 mg/dL (0.2-1.2); Calc. Creatinine Clearance 210 mL/min (70-130); Calcium 8.6 mg/dL (7.8-10.44); Carbon Dioxide 34 mmol/L (22-29); Chloride 101 mmol/L (98-107); Globulin 2.9 g/dL (2.4-3.5); Glucose 203 mg/dL (70-105); Potassium 4.3 mmol/L (3.5-5.1); Protein, Total 5.6 g/dL (6.0-8.3); Sodium 139 mmol/L (136-145)
[2020-09-16] MEDS: Levothyroxine Sodium 50 MCG TAB PO SCH (05:59)
[2020-09-16] MEDS: Enoxaparin Sodium 40 MG/0.4 ML SYRINGE SC SCH ×2 (05:59→17:42)
[2020-09-16] MEDS: HumaLOG 300 UNITS/3 ML VIAL SC PRN ×2 (05:59→17:42)
[2020-09-16] MEDS ORDERED: Lisinopril 2.5 MG TAB PO SCH (09:00)
[2020-09-16] MEDS ORDERED: predniSONE 20 MG TAB PO SCH (09:00)
[2020-09-16] MEDS: Aspirin Chewable 81 MG TAB PO SCH (09:57)
[2020-09-16] MEDS: Clopidogrel Bisulfate 75 MG TAB PO SCH (09:58)
[2020-09-16] MEDS: Pregabalin 50 MG CAP PO SCH (09:58)
[2020-09-16] MEDS: Furosemide 40 MG TAB PO SCH (09:59)
[2020-09-16] MEDS: Lantus 1000 UNITS/10 ML VIAL SC SCH (10:00)
[2020-09-16] MEDS: HYDROcodone/Acetaminophen 10/325 mg Tablet PO PRN (15:47)
[2020-09-16 15:52] VITALS: TEMP 98.6
[2020-09-16 16:47] VITALS: BP 160/75
[2020-09-16] MEDS: Mometasone 200 MCG/Formoterol 5 MCG 120 PUFF INHALER INH SCH ×2 (17:38→19:16)
== END 2020-09-16 19:39 | DRG 871 ==
LOC: ERS 17:34 → CCU 20:37 → 2NO 09-13 22:29
PROVIDERS: ADMIT Family Medicine; ATTEND Family Medicine
PROC: 02H633Z Insertion of Infusion Device into Right Atrium, Percutaneous Approach (ICD-10-PCS; principal; 2020-09-12)
PROC: 3E033XZ Introduction of Vasopressor into Peripheral Vein, Percutaneous Approach (ICD-10-PCS; 2020-09-12)
DX: A41.51 Sepsis due to Escherichia coli [E. coli] (principal); J96.01 Acute respiratory failure with hypoxia; I21.A1 Myocardial infarction type 2; R65.21 Severe sepsis with septic shock; I50.22 Chronic systolic (congestive) heart failure; E87.4 Mixed disorder of acid-base balance; J44.1 Chronic obstructive pulmonary disease with (acute) exacerbation; E27.2 Addisonian crisis; N17.9 Acute kidney failure, unspecified; N39.0 Urinary tract infection, site not specified; Z68.43 Body mass index [BMI] 50.0-59.9, adult; E10.9 Type 1 diabetes mellitus without complications; M79.7 Fibromyalgia; E03.9 Hypothyroidism, unspecified; I11.0 Hypertensive heart disease with heart failure; K21.9 Gastro-esophageal reflux disease without esophagitis; M06.9 Rheumatoid arthritis, unspecified; Z20.822 Contact with and (suspected) exposure to COVID-19; E66.9 Obesity, unspecified; Z90.710 Acquired absence of both cervix and uterus; Z88.2 Allergy status to sulfonamides; Z88.8 Allergy status to other drugs, medicaments and biological substances; Z79.4 Long term (current) use of insulin; Z79.899 Other long term (current) drug therapy; Z98.41 Cataract extraction status, right eye; Z95.1 Presence of aortocoronary bypass graft; Z87.891 Personal history of nicotine dependence; Z89.421 Acquired absence of other right toe(s)
CPT/HCPCS: 0240U; 36415; 36416; 36556; 36600; 51702; 70450; 71045; 71275; 80053; 80306; 80307; 81003; 81015; 82140; 82553; 82805; 83605; 83690; 83735; 83880; 84145; 84484; 85025; 85610; 85730; 87040; 87077; 87086; 87186; 93005; 93010; 93306; 96365; 96366; 96368; 96375; 99292; J0696; J1650; J1720; J1815; J2310; J3370; J3490; J7050; J7512; Q0162; Q9967

== ENCOUNTER 2020-10-23 18:14 | Emergency (ER) | payer OTHER ==
[2020-10-23] MEDS ORDERED: HYDROcodone/Acetaminophen 5/325 mg Tablet ONE (20:00)
[2020-10-23] MEDS ORDERED: Lidocaine 1% (PF) 30 ML VIAL ONE (21:20)
[2020-10-23] MEDS ORDERED: Lidocaine 1% w/Epinephrine 1:100K 20 ML VIAL ONE ×2 (21:23→21:24)
[2020-10-23] MEDS ORDERED: Boostrix 0.5 ML (Tdap) VIAL ONE (21:34)
== END 2020-10-23 22:12 | disposition home or self-care (01) ==
LOC: ERS 18:14
DX: M23.8X1 Other internal derangements of right knee (principal); E03.9 Hypothyroidism, unspecified; M06.9 Rheumatoid arthritis, unspecified; E10.319 Type 1 diabetes mellitus with unspecified diabetic retinopathy without macular edema; M19.90 Unspecified osteoarthritis, unspecified site; I11.0 Hypertensive heart disease with heart failure; I50.9 Heart failure, unspecified; F17.210 Nicotine dependence, cigarettes, uncomplicated
CPT/HCPCS: 90715; J2001

== ENCOUNTER 2021-01-16 22:57 | Inpatient (IN) | payer OTHER ==
[2021-01-16] MEDS ORDERED: Norepinephrine 8 MG/0.9% NS 250 ML ONE (23:39)
[2021-01-16 23:51] LABS: #Eosinphils 0.1 thou/uL (0.0-0.7); #Lymphocytes 2.2 thou/uL (1.20-3.40); #Monocytes 0.3 thou/uL (0.11-0.59); %Eosinophils 1.2 % (0.0-10.0); %Lymphocytes 25.9 % (21.0-51.0); %Monocytes 3.8 % (0.0-10.0); %Neutrophils 69.2 % (42.0-75.0); Hemoglobin 11.9 g/dL (12.0-16.0); Mean Corpuscular HGB CONC 31.3 g/dL (32.0-36.0); Mean Corpuscular Hemoglobin 28.1 pg (27.0-31.0); Mean Corpuscular Volume 89.8 fL (78.0-98.0); Mean Platelet Volume 7.7 fL (7.4-10.4); Platelet Count 204 thou/uL (130-400); RBC Distribution Width 14.3 % (11.5-14.5); Red Blood Cell (RBC) Count 4.25 mill/uL (4.20-5.40); White Blood Cell (WBC) Count 8.7 thou/uL (4.8-10.8)
[2021-01-17] MEDS ORDERED: Cefepime 2 GM VIAL ONE (00:03)
[2021-01-17 00:13] LABS: ALT (SGPT) 13 U/L (8-55); AST (SGOT) 11 U/L (5-34); Albumin 2.6 g/dL (3.5-5.0); Alkaline Phosphatase 66 U/L (40-110); Anion Gap 12 mmol/L (10-20); BUN (Urea Nitrogen) 13 mg/dL (9.8-20.1); Bilirubin, Total 0.9 mg/dL (0.2-1.2); Calc. Creatinine Clearance 0 mL/min (70-130); Calcium 7.8 mg/dL (7.8-10.44); Carbon Dioxide 21 mmol/L (22-29); Chloride 100 mmol/L (98-107); Globulin 2.7 g/dL (2.4-3.5); Glucose 221 mg/dL (70-105); Potassium 3.4 mmol/L (3.5-5.1); Protein, Total 5.3 g/dL (6.0-8.3); Sodium 130 mmol/L (136-145)
[2021-01-17] MEDS ORDERED: Acetaminophen 500 MG TAB ONE (00:26)
[2021-01-17] MEDS ORDERED: Vancomycin HCl 1.5 GM in Sodium Chloride 0.9% 250 ML 300 ML IVPB SCH (01:30)
[2021-01-17] MEDS ORDERED: Fentanyl 100 MCG/2 ML VIAL ONE ×2 (01:50→02:01)
[2021-01-17] MEDS ORDERED: Lorazepam 2 MG/ML VIAL ONE (02:01)
[2021-01-17 02:22] LABS: Bilirubin Negative (Negative); Blood, Urine Negative (Negative); Clarity Clear (Clear); Glucose, Urine (Dipstick) Normal (Negative); Ketone, Urine Negative (Negative); Leukocyte Negative Leu/uL (Negative); Nitrite Negative (Negative); Protein, Urine (Dipstick) Negative (Neg-Trace); Specific Gravity, Urine 1.005 (1.002-1.036); Urobilinogen Normal mg/dL (Less than 2); pH, Urine 6.5 (5.0-9.0)
[2021-01-17 03:18] LABS: Lactic Acid 1.2 mmol/L (0.5-2.2)
[2021-01-17] MEDS ORDERED: HYDROcodone/Acetaminophen 5/325 mg Tablet PO PRN (03:27)
[2021-01-17] MEDS ORDERED: Bisacodyl 10 MG SUPP PR PRN (03:27)
[2021-01-17] MEDS ORDERED: Dextrose 5% in Water 1,000 ML IV PRN (03:27)
[2021-01-17] MEDS ORDERED: Dextrose 50% Abboject 50 ML SYRINGE SLOW IVP PRN (03:27)
[2021-01-17] MEDS ORDERED: Ondansetron ODT 4 MG TAB PO PRN (03:27)
[2021-01-17] MEDS ORDERED: Senokot S 8.6-50 MG TAB PO PRN (03:27)
[2021-01-17] MEDS ORDERED: Calcium Carbonate 500 MG ChewTAB PO PRN (03:27)
[2021-01-17] MEDS ORDERED: HumaLOG 300 UNITS/3 ML VIAL SC PRN (03:33)
[2021-01-17] MEDS ORDERED: Norepinephrine 8 MG/0.9% NS 250 ML IVPB PRN (03:50)
[2021-01-17] MEDS ORDERED: Electrolyte Replacement Protocol 1 EACH IVPB ONE (03:50)
[2021-01-17] MEDS ORDERED: Hydrocortisone Sod Succ/PF 100 mg/2 ml Vial IVP SCH (04:00)
[2021-01-17] MEDS ORDERED: Electrolyte Replacement Protocol FS PRN (04:00)
[2021-01-17] MEDS ORDERED: Potassium Chloride 20 MEQ TAB PO SCH ×2 (04:00→07:00)
[2021-01-17] MEDS ORDERED: Ondansetron PF 4 MG/2 ML Vial ONE (04:12)
[2021-01-17 04:43] LABS: SARS-CoV-2 NAA Rapid Test Not Detected (NotDetected)
[2021-01-17] MEDS ORDERED: Potassium Chloride 20 MEQ TAB ONE (05:38)
[2021-01-17] MEDS ORDERED: Azithromycin 500 MG VIAL ONE (05:38)
[2021-01-17] MEDS ORDERED: Hydrocortisone Sod Succ/PF 100 mg/2 ml Vial ONE (05:38)
[2021-01-17] MEDS ORDERED: cefTRIAXone\\ROCEPHIN 1 GM VIAL ONE (05:38)
[2021-01-17] MEDS: cefTRIAXone\\ROCEPHIN 1 GM in Sodium Chloride 0.9% 100 ML IVPB SCH (05:53)
[2021-01-17] MEDS: Azithromycin 500 MG in Sodium Chloride 0.9% 250 ML 250 ML IVPB SCH (05:54)
[2021-01-17 05:56] LABS: Eosinophils 1 % (0-10); Hemoglobin 12.5 g/dL (12.0-16.0); Lymphocytes 36 % (21-51); MDiff Complete? YES; Mean Corpuscular HGB CONC 31.4 g/dL (32.0-36.0); Mean Corpuscular Hemoglobin 28.9 pg (27.0-31.0); Mean Corpuscular Volume 91.9 fL (78.0-98.0); Mean Platelet Volume 7.9 fL (7.4-10.4); Monocytes 9 % (0-10); Neutrophil 54 % (42-75); Platelet Count 178 thou/uL (130-400); Platelet Morphology Comment Appears Adequate; RBC Distribution Width 14.6 % (11.5-14.5); RBC Morphology Normal; Red Blood Cell (RBC) Count 4.33 mill/uL (4.20-5.40); White Blood Cell (WBC) Count 11.2 thou/uL (4.8-10.8)
[2021-01-17] MEDS: Lactated Ringer's 1,000 ML IV SCH ×2 (06:06→09:16)
[2021-01-17 07:19] VITALS: BMI 51.2
[2021-01-17] MEDS: Ondansetron PF 4 MG/2 ML Vial IVP PRN ×2 (07:37→17:18)
[2021-01-17] MEDS ORDERED: HYDROcodone/Acetaminophen 10/325 mg Tablet PO PRN ×2 (07:41→09:29)
[2021-01-17] MEDS: Potassium Chloride 20 MEQ in Premix Bag 1 BAG IVPB SCH ×2 (08:17→09:27)
[2021-01-17] MEDS: Mometasone 200 MCG/Formoterol 5 MCG 120 PUFF INHALER INH SCH ×2 (08:29→18:29)
[2021-01-17] MEDS ORDERED: Acetaminophen 325 MG TAB PO PRN (08:39)
[2021-01-17] MEDS: Aspirin Chewable 81 MG TAB PO SCH (08:39)
[2021-01-17] MEDS: Levothyroxine Sodium 50 MCG TAB PO SCH (08:39)
[2021-01-17] MEDS: Nystatin Powder 15 GM BOT TOP SCH ×2 (08:40→20:29)
[2021-01-17] MEDS: Clopidogrel Bisulfate 75 MG TAB PO SCH (08:40)
[2021-01-17] MEDS: Pregabalin 50 MG CAP PO SCH ×2 (08:59→20:28)
[2021-01-17] MEDS ORDERED: predniSONE 5 MG TAB PO SCH (09:00)
[2021-01-17] MEDS ORDERED: Enoxaparin Sodium 40 MG/0.4 ML SYRINGE SC SCH (09:00)
[2021-01-17] MEDS: Folic Acid 1 MG TAB PO SCH (09:15)
[2021-01-17] MEDS: Hydrocortisone Sod Succ/PF 100 mg/2 ml Vial IVP SCH ×3 (09:19→20:29)
[2021-01-17] MEDS ORDERED: Lactated Ringer's 1,000 ML IV SCH (09:30)
[2021-01-17] MEDS: Lantus 1000 UNITS/10 ML VIAL SC SCH ×2 (09:37→20:29)
[2021-01-17 11:18] LABS: Actual Bicarbonate (HCO3a) 20.5 mEq/L (22-28); Base Excess (BEa) -4.1 mEq/L (-2.0 to +3.0); Calcium, Ionized (arterial) 1.11 mmol/L (1.12-1.30); Carboxyhemoglobin (COHb) 1.6 gm% (0.0-3.0); O2 Tension (PaO2), arterial 79.8 mmHg (80.0-100.0); Potassium - ABG Lab 5.69 mmol/L (3.70-5.30); pH, Arterial 7.37 (7.35-7.45)
[2021-01-17 11:26] LABS: Puncture Site RRA
[2021-01-17] MEDS: Bisacodyl 5 MG TAB PO PRN (12:16)
[2021-01-17] MEDS: HYDROcodone/Acetaminophen 10/325 mg Tablet PO PRN (18:47)
[2021-01-17] MEDS: HumaLOG 300 UNITS/3 ML VIAL SC PRN (20:30)
[2021-01-18] MEDS: HYDROcodone/Acetaminophen 10/325 mg Tablet PO PRN ×3 (02:23→22:15)
[2021-01-18] MEDS: cefTRIAXone\\ROCEPHIN 1 GM in Sodium Chloride 0.9% 100 ML IVPB SCH (03:57)
[2021-01-18] MEDS: Azithromycin 500 MG in Sodium Chloride 0.9% 250 ML 250 ML IVPB SCH (03:57)
[2021-01-18] MEDS: HumaLOG 300 UNITS/3 ML VIAL SC PRN ×4 (03:58→20:49)
[2021-01-18] MEDS: Hydrocortisone Sod Succ/PF 100 mg/2 ml Vial IVP SCH (03:58)
[2021-01-18 04:50] LABS: Anion Gap 13 mmol/L (10-20); BUN (Urea Nitrogen) 10 mg/dL (9.8-20.1); Calc. Creatinine Clearance 185 mL/min (70-130); Calcium 8.1 mg/dL (7.8-10.44); Carbon Dioxide 23 mmol/L (22-29); Chloride 103 mmol/L (98-107); Glucose 365 mg/dL (70-105); Potassium 4.9 mmol/L (3.5-5.1); Sodium 134 mmol/L (136-145)
[2021-01-18 05:06] LABS: Hemoglobin 11.7 g/dL (12.0-16.0); MDiff Complete? YES; Mean Corpuscular HGB CONC 32.4 g/dL (32.0-36.0); Mean Corpuscular Hemoglobin 28.8 pg (27.0-31.0); Mean Corpuscular Volume 88.9 fL (78.0-98.0); Platelet Count 183 thou/uL (130-400); RBC Distribution Width 14.1 % (11.5-14.5); Red Blood Cell (RBC) Count 4.08 mill/uL (4.20-5.40); White Blood Cell (WBC) Count 5.9 thou/uL (4.8-10.8)
[2021-01-18 05:07] LABS: Band 3 % (5-11); Lymphocytes 18 % (21-51); Monocytes 5 % (0-10); Myelocyte 1 % (0-0); Neutrophil 73 % (42-75); Platelet Morphology Comment Appears Adequate; RBC Morphology Normal
[2021-01-18] MEDS: Levothyroxine Sodium 50 MCG TAB PO SCH (05:29)
[2021-01-18] MEDS: Enoxaparin Sodium 60 MG/0.6 ML SYRINGE SC SCH (07:46)
[2021-01-18] MEDS: predniSONE 20 MG TAB PO SCH (07:47)
[2021-01-18] MEDS: Pregabalin 50 MG CAP PO SCH ×2 (07:47→20:48)
[2021-01-18] MEDS: Clopidogrel Bisulfate 75 MG TAB PO SCH (07:48)
[2021-01-18] MEDS: Folic Acid 1 MG TAB PO SCH (07:48)
[2021-01-18] MEDS: Lantus 1000 UNITS/10 ML VIAL SC SCH ×2 (07:48→20:49)
[2021-01-18] MEDS: Aspirin Chewable 81 MG TAB PO SCH (07:48)
[2021-01-18] MEDS: Nystatin Powder 15 GM BOT TOP SCH ×2 (07:49→20:49)
[2021-01-18] MEDS: Mometasone 200 MCG/Formoterol 5 MCG 120 PUFF INHALER INH SCH ×2 (08:28→18:59)
[2021-01-18] MEDS: Furosemide 40 MG TAB PO SCH (09:32)
[2021-01-18] MEDS: Ondansetron PF 4 MG/2 ML Vial IVP PRN ×2 (10:39→22:15)
[2021-01-18] MEDS: Bisacodyl 5 MG TAB PO PRN (11:27)
[2021-01-19] MEDS: Azithromycin 500 MG in Sodium Chloride 0.9% 250 ML 250 ML IVPB SCH (04:35)
[2021-01-19] MEDS ORDERED: cefTRIAXone\\ROCEPHIN 1 GM in Sodium Chloride 0.9% 100 ML IVPB SCH (05:00)
[2021-01-19] MEDS: Levothyroxine Sodium 50 MCG TAB PO SCH (05:12)
[2021-01-19] MEDS: Mometasone 200 MCG/Formoterol 5 MCG 120 PUFF INHALER INH SCH ×2 (07:48→18:51)
[2021-01-19] MEDS: Pregabalin 50 MG CAP PO SCH ×2 (08:28→21:24)
[2021-01-19] MEDS: Furosemide 40 MG TAB PO SCH (08:29)
[2021-01-19] MEDS: Aspirin Chewable 81 MG TAB PO SCH (08:29)
[2021-01-19] MEDS: Clopidogrel Bisulfate 75 MG TAB PO SCH (08:29)
[2021-01-19] MEDS: HYDROcodone/Acetaminophen 10/325 mg Tablet PO PRN ×2 (08:29→16:55)
[2021-01-19] MEDS: predniSONE 20 MG TAB PO SCH (08:29)
[2021-01-19] MEDS: Enoxaparin Sodium 60 MG/0.6 ML SYRINGE SC SCH (08:30)
[2021-01-19] MEDS: Folic Acid 1 MG TAB PO SCH (08:31)
[2021-01-19] MEDS: Lantus 1000 UNITS/10 ML VIAL SC SCH ×2 (08:31→21:22)
[2021-01-19 12:45] LABS: #Monocytes 0.2 thou/uL (0.11-0.59); %Basophils 0.1 % (0.0-1.0); %Eosinophils 0.3 % (0.0-10.0); %Lymphocytes 16.4 % (21.0-51.0); %Monocytes 3.1 % (0.0-10.0); %Neutrophils 80.1 % (42.0-75.0); Hemoglobin 12.7 g/dL (12.0-16.0); Mean Corpuscular HGB CONC 33.1 g/dL (32.0-36.0); Mean Corpuscular Hemoglobin 29.3 pg (27.0-31.0); Mean Corpuscular Volume 88.5 fL (78.0-98.0); Mean Platelet Volume 7.5 fL (7.4-10.4); Platelet Count 200 thou/uL (130-400); RBC Distribution Width 14.3 % (11.5-14.5); Red Blood Cell (RBC) Count 4.32 mill/uL (4.20-5.40); White Blood Cell (WBC) Count 6.2 thou/uL (4.8-10.8)
[2021-01-19] MEDS: Nystatin Powder 15 GM BOT TOP SCH ×2 (13:23→21:24)
[2021-01-19] MEDS ORDERED: Polyethylene Glycol 3350 17 GM Packet PO SCH (14:15)
[2021-01-19] MEDS: HumaLOG 300 UNITS/3 ML VIAL SC PRN ×2 (16:50→21:22)
[2021-01-19] MEDS: Cefdinir 300 MG CAP PO SCH (21:23)
[2021-01-19] MEDS: Senokot S 8.6-50 MG TAB PO SCH (21:24)
[2021-01-19] MEDS: Zinc Oxide 20% Oint 30 GM TUBE TOP SCH (21:25)
[2021-01-20] MEDS: Levothyroxine Sodium 50 MCG TAB PO SCH (05:23)
[2021-01-20] MEDS ORDERED: Magnesium Citrate 300 ML BOT PO SCH (06:30)
[2021-01-20] MEDS: Mometasone 200 MCG/Formoterol 5 MCG 120 PUFF INHALER INH SCH (07:28)
[2021-01-20] MEDS ORDERED: Polyethylene Glycol 3350 17 GM Packet PO SCH (09:00)
[2021-01-20] MEDS: Pregabalin 50 MG CAP PO SCH (09:26)
[2021-01-20] MEDS: Folic Acid 1 MG TAB PO SCH (09:27)
[2021-01-20] MEDS: predniSONE 20 MG TAB PO SCH (09:27)
[2021-01-20] MEDS: Aspirin Chewable 81 MG TAB PO SCH (09:27)
[2021-01-20] MEDS: Zinc Oxide 20% Oint 30 GM TUBE TOP SCH (09:28)
[2021-01-20] MEDS: Clopidogrel Bisulfate 75 MG TAB PO SCH (09:28)
[2021-01-20] MEDS: Cefdinir 300 MG CAP PO SCH (09:28)
[2021-01-20] MEDS: Furosemide 40 MG TAB PO SCH (09:28)
[2021-01-20] MEDS: Nystatin Powder 15 GM BOT TOP SCH (09:28)
[2021-01-20] MEDS: Enoxaparin Sodium 60 MG/0.6 ML SYRINGE SC SCH (09:29)
[2021-01-20] MEDS: Lantus 1000 UNITS/10 ML VIAL SC SCH (09:29)
[2021-01-20] MEDS: Senokot S 8.6-50 MG TAB PO SCH (09:30)
[2021-01-20] MEDS: HYDROcodone/Acetaminophen 10/325 mg Tablet PO PRN (10:28)
[2021-01-20 10:31] LABS: Hemoglobin 14.9 g/dL (12.0-16.0); White Blood Cell (WBC) Count 8.7 thou/uL (4.8-10.8)
[2021-01-20 10:32] LABS: MDiff Complete? YES; Mean Corpuscular HGB CONC 32.3 g/dL (32.0-36.0); Mean Corpuscular Hemoglobin 28.1 pg (27.0-31.0); Mean Platelet Volume 7.9 fL (7.4-10.4); Platelet Count 202 thou/uL (130-400); RBC Distribution Width 14.2 % (11.5-14.5)
[2021-01-20] MEDS: Ondansetron PF 4 MG/2 ML Vial IVP PRN (10:32)
[2021-01-20 11:23] LABS: Band 2 % (5-11); Lymphocytes 50 % (21-51); Monocytes 1 % (0-10); Neutrophil 44 % (42-75); Polychromasia SLIGHT = 2-3 cells (100X) (0-2/hpf); Reactive Lymphocytes 3 % (0-10)
[2021-01-20 11:24] LABS: Platelet Morphology Comment Appears Adequate
[2021-01-20] MEDS: HumaLOG 300 UNITS/3 ML VIAL SC PRN (11:51)
[2021-01-20 11:55] VITALS: BP 120/78; TEMP 97.9
== END 2021-01-20 15:46 | disposition home or self-care (01) | DRG 871 ==
LOC: ERS 22:57 → ERHOLD 01-17 02:32 → CCU 01-17 06:33 → T4-A 01-18 22:06
PROVIDERS: ADMIT Family Medicine; ATTEND Family Medicine
PROC: 05HM33Z Insertion of Infusion Device into Right Internal Jugular Vein, Percutaneous Approach (ICD-10-PCS; principal; 2021-01-17)
PROC: B543ZZA Ultrasonography of Right Jugular Veins, Guidance (ICD-10-PCS; 2021-01-17)
DX: A41.9 Sepsis, unspecified organism (principal); J18.9 Pneumonia, unspecified organism; R65.21 Severe sepsis with septic shock; J96.01 Acute respiratory failure with hypoxia; J44.0 Chronic obstructive pulmonary disease with (acute) lower respiratory infection; I47.1 Supraventricular tachycardia; I50.22 Chronic systolic (congestive) heart failure; Z68.43 Body mass index [BMI] 50.0-59.9, adult; I48.91 Unspecified atrial fibrillation; E03.9 Hypothyroidism, unspecified; I11.0 Hypertensive heart disease with heart failure; M06.9 Rheumatoid arthritis, unspecified; M19.90 Unspecified osteoarthritis, unspecified site; K21.9 Gastro-esophageal reflux disease without esophagitis; E66.01 Morbid (severe) obesity due to excess calories; G89.29 Other chronic pain; B37.9 Candidiasis, unspecified; F41.9 Anxiety disorder, unspecified; F32.A Depression, unspecified; I25.10 Atherosclerotic heart disease of native coronary artery without angina pectoris; E10.40 Type 1 diabetes mellitus with diabetic neuropathy, unspecified; T38.0X5A Adverse effect of glucocorticoids and synthetic analogues, initial encounter; K59.00 Constipation, unspecified; E78.5 Hyperlipidemia, unspecified; Z20.822 Contact with and (suspected) exposure to COVID-19; Z95.1 Presence of aortocoronary bypass graft; Z90.710 Acquired absence of both cervix and uterus; Z89.421 Acquired absence of other right toe(s); Z98.49 Cataract extraction status, unspecified eye; Z95.5 Presence of coronary angioplasty implant and graft; Z87.891 Personal history of nicotine dependence; Z88.2 Allergy status to sulfonamides; Z88.8 Allergy status to other drugs, medicaments and biological substances; Z79.4 Long term (current) use of insulin; Z79.82 Long term (current) use of aspirin; Z79.899 Other long term (current) drug therapy; Z98.41 Cataract extraction status, right eye; I25.2 Old myocardial infarction
CPT/HCPCS: 36415; 36416; 36600; 71045; 71275; 80048; 80053; 81003; 82805; 83605; 84145; 85007; 85025; 85027; 87040; 87086; 93005; 93010; J0456; J0692; J0696; J1650; J1720; J1815; J1956; J2060; J2405; J3010; J3370; J3480; J3490; J7050; J7120; J7512; U0002

== ENCOUNTER 2021-08-17 12:25 | Inpatient (IN) | payer OTHER ==
[2021-08-17 12:55] LABS: #Basophils 0.1 thou/uL (0.0-0.2); #Eosinphils 0.1 thou/uL (0.0-0.7); #Lymphocytes 2.5 thou/uL (1.20-3.40); #Monocytes 0.6 thou/uL (0.11-0.59); %Basophils 0.5 % (0.0-1.0); %Eosinophils 1.2 % (0.0-10.0); %Lymphocytes 20.3 % (21.0-51.0); %Monocytes 4.5 % (0.0-10.0); %Neutrophils 73.5 % (42.0-75.0); Hemoglobin 13.3 g/dL (12.0-16.0); Mean Corpuscular HGB CONC 30.8 g/dL (32.0-36.0); Mean Corpuscular Hemoglobin 26.4 pg (27.0-31.0); Mean Corpuscular Volume 85.4 fL (78.0-98.0); Mean Platelet Volume 7.5 fL (7.4-10.4); Platelet Count 323 thou/uL (130-400); RBC Distribution Width 14.1 % (11.5-14.5); Red Blood Cell (RBC) Count 5.06 mill/uL (4.20-5.40); White Blood Cell (WBC) Count 12.3 thou/uL (4.8-10.8)
[2021-08-17] MEDS ORDERED: Morphine 4 MG/ML VIAL ONE (13:05)
[2021-08-17] MEDS ORDERED: Ondansetron PF 4 MG/2 ML Vial ONE (13:05)
[2021-08-17 13:26] LABS: ALT (SGPT) 10 U/L (8-55); AST (SGOT) 11 U/L (5-34); Albumin 3.7 g/dL (3.5-5.0); Alkaline Phosphatase 98 U/L (40-110); Anion Gap 20 mmol/L (10-20); BUN (Urea Nitrogen) 16 mg/dL (9.8-20.1); Bilirubin, Total 0.7 mg/dL (0.2-1.2); Calc. Creatinine Clearance 0 mL/min (70-130); Calcium 9.5 mg/dL (7.8-10.44); Carbon Dioxide 28 mmol/L (22-29); Chloride 94 mmol/L (98-107); Estimated GFR 75; Globulin 3.4 g/dL (2.4-3.5); Glucose 339 mg/dL (70-105); Potassium 4.1 mmol/L (3.5-5.1); Protein, Total 7.1 g/dL (6.0-8.3); Sodium 138 mmol/L (136-145)
[2021-08-17] MEDS ORDERED: Aspirin Chewable 81 MG TAB ONE (13:43)
[2021-08-17 14:00] LABS: CKMB 6.9 ng/mL (0-6.6)
[2021-08-17] MEDS ORDERED: Nitroglycerin 2% Ointment 1 INCH/1 GM Packet ONE (14:10)
[2021-08-17] MEDS ORDERED: Nitroglycerin 0.4 MG TAB 1 EACH SL PRN (14:20)
[2021-08-17] MEDS ORDERED: Enoxaparin Sodium 40 MG/0.4 ML SYRINGE ONE (14:21)
[2021-08-17] MEDS ORDERED: Enoxaparin Sodium 100 MG/ML SYRINGE ONE (14:21)
[2021-08-17 14:22] LABS: Bacteria/HPF 3+ HPF (None Seen); Bilirubin Negative (Negative); Blood, Urine Negative (Negative); Clarity Clear (Clear); Glucose, Urine (Dipstick) 200 mg/dL (Negative); Ketone, Urine Negative (Negative); Leukocyte 500 Leu/uL (Negative); Nitrite 1+ (Negative); Protein, Urine (Dipstick) Negative (Neg-Trace); Specific Gravity, Urine 1.011 (1.002-1.036); Squamous Epithelial 0-3 HPF (0-3); Urobilinogen Normal mg/dL (Less than 2); pH, Urine 6.5 (5.0-9.0)
[2021-08-17 14:30] LABS: WBC/HPF 21-50 HPF (0-3)
[2021-08-17] MEDS ORDERED: Enoxaparin Sodium 100 MG/ML SYRINGE SC SCH ×3 (14:30→22:00)
[2021-08-17] MEDS ORDERED: Clopidogrel Bisulfate 300 MG TAB PO SCH (14:30)
[2021-08-17 14:31] LABS: Yeast-Budding None Seen HPF (None Seen)
[2021-08-17] MEDS ORDERED: cefTRIAXone\\ROCEPHIN 1 GM VIAL ONE (14:49)
[2021-08-17] MEDS ORDERED: Acetaminophen 325 MG TAB PO PRN (15:04)
[2021-08-17] MEDS ORDERED: Ondansetron ODT 4 MG TAB PO PRN (15:04)
[2021-08-17] MEDS ORDERED: Dextrose 50% Abboject 50 ML SYRINGE SLOW IVP PRN (15:07)
[2021-08-17] MEDS ORDERED: HumaLOG 300 UNITS/3 ML VIAL SC PRN ×2 (15:07)
[2021-08-17] MEDS ORDERED: Dextrose 5% in Water 1,000 ML IV PRN (15:07)
[2021-08-17] MEDS ORDERED: Furosemide 40 MG/4 ML VIAL SLOW IVP SCH (15:45)
[2021-08-17 16:38] LABS: SARS-CoV-2 NAA Rapid Test Not Detected (NotDetected)
[2021-08-17 19:58] LABS: CKMB 7.9 ng/mL (0-6.6)
[2021-08-17 20:13] LABS: Hemoglobin A1c 9.7 % (4.0-6.0)
[2021-08-17] MEDS ORDERED: Erythromycin Base 0.5% Oint 1 GM TUBE EA EYE SCH (21:00)
[2021-08-17] MEDS: metFORMIN 500 MG TAB PO SCH (21:22)
[2021-08-17] MEDS: Pregabalin 50 MG CAP PO SCH (21:22)
[2021-08-17] MEDS: Atorvastatin Calcium 40 MG TAB PO SCH (21:23)
[2021-08-17] MEDS: Cyclobenzaprine 10 MG TAB PO SCH (21:23)
[2021-08-17] MEDS: Insulin Glargine 30 UNITS/0.3 ML VIAL SC SCH (21:24)
[2021-08-17] MEDS: HumaLOG 300 UNITS/3 ML VIAL SC SCH (21:25)
[2021-08-17] MEDS ORDERED: Enoxaparin Sodium 120 MG/0.8 ML SYRINGE SC SCH (22:00)
[2021-08-17 23:38] LABS: Troponin I 8.174 ng/mL (< 0.028)
[2021-08-18 04:41] LABS: #Basophils 0.1 thou/uL (0.0-0.2); #Eosinphils 0.3 thou/uL (0.0-0.7); #Lymphocytes 3.1 thou/uL (1.20-3.40); #Monocytes 0.5 thou/uL (0.11-0.59); #Neutrophils 6.7 thou/uL (1.40-6.50); %Basophils 0.7 % (0.0-1.0); %Eosinophils 2.7 % (0.0-10.0); %Lymphocytes 29.1 % (21.0-51.0); %Monocytes 4.7 % (0.0-10.0); %Neutrophils 62.9 % (42.0-75.0); Hemoglobin 13.2 g/dL (12.0-16.0); Mean Corpuscular HGB CONC 30.8 g/dL (32.0-36.0); Mean Corpuscular Hemoglobin 26.8 pg (27.0-31.0); Mean Platelet Volume 7.9 fL (7.4-10.4); Platelet Count 274 thou/uL (130-400); RBC Distribution Width 14.2 % (11.5-14.5); Red Blood Cell (RBC) Count 4.91 mill/uL (4.20-5.40); White Blood Cell (WBC) Count 10.7 thou/uL (4.8-10.8)
[2021-08-18] MEDS: Ondansetron PF 4 MG/2 ML Vial IVP PRN ×2 (05:07→16:48)
[2021-08-18] MEDS: Levothyroxine Sodium 50 MCG TAB PO SCH (05:07)
[2021-08-18] MEDS: HYDROcodone/Acetaminophen 10/325 mg Tablet PO PRN ×2 (05:23→14:41)
[2021-08-18 05:38] LABS: ALT (SGPT) 10 U/L (8-55); AST (SGOT) 13 U/L (5-34); Albumin 3.5 g/dL (3.5-5.0); Alkaline Phosphatase 88 U/L (40-110); Anion Gap 20 mmol/L (10-20); BUN (Urea Nitrogen) 20 mg/dL (9.8-20.1); Bilirubin, Total 0.4 mg/dL (0.2-1.2); Calc. Creatinine Clearance 141 mL/min (70-130); Calcium 9.6 mg/dL (7.8-10.44); Carbon Dioxide 29 mmol/L (22-29); Chloride 94 mmol/L (98-107); Estimated GFR 69; Globulin 3.4 g/dL (2.4-3.5); Glucose 129 mg/dL (70-105); Potassium 3.7 mmol/L (3.5-5.1); Protein, Total 6.9 g/dL (6.0-8.3); Sodium 139 mmol/L (136-145)
[2021-08-18] MEDS ORDERED: Lidocaine 1% (PF) 30 ML VIAL ONE ×2 (07:07→08:43)
[2021-08-18] MEDS ORDERED: Heparin 10,000 UNITS/ 10 ML VIAL ONE (07:07)
[2021-08-18] MEDS ORDERED: Fentanyl 100 MCG/2 ML VIAL ONE (08:09)
[2021-08-18] MEDS ORDERED: Midazolam HCl 2 mg/2 ml Vial ONE (08:09)
[2021-08-18] MEDS: HumaLOG 300 UNITS/3 ML VIAL SC SCH ×4 (08:39→22:26)
[2021-08-18] MEDS ORDERED: Iopamidol 370 76% 50 ML VIAL FS ONE (08:57)
[2021-08-18] MEDS ORDERED: Iopamidol 370 76% 100 ML VIAL ONE (08:57)
[2021-08-18] MEDS ORDERED: cefTRIAXone\\ROCEPHIN 1 GM in Sodium Chloride 0.9% 100 ML IVPB SCH (09:45)
[2021-08-18] MEDS ORDERED: Bivalirudin 250 MG VIAL ONE (10:02)
[2021-08-18] MEDS ORDERED: Clopidogrel Bisulfate 75 MG TAB ONE (10:09)
[2021-08-18] MEDS ORDERED: Carvedilol 6.25 MG TAB PO SCH (10:15)
[2021-08-18] MEDS ORDERED: Sodium Chloride 0.9% 1,000 ML IV SCH (10:45)
[2021-08-18] MEDS: Furosemide 20 MG TAB PO SCH (14:41)
[2021-08-18] MEDS: metFORMIN 500 MG TAB PO SCH (14:42)
[2021-08-18] MEDS: Insulin Glargine 30 UNITS/0.3 ML VIAL SC SCH ×2 (14:45→22:25)
[2021-08-18] MEDS: Pregabalin 50 MG CAP PO SCH ×2 (14:45→15:58)
[2021-08-18] MEDS: cefTRIAXone\\ROCEPHIN 1 GM in Sodium Chloride 0.9% 100 ML IVPB SCH (15:05)
[2021-08-18] MEDS: Folic Acid 1 MG TAB PO SCH (15:26)
[2021-08-18] MEDS: Lisinopril 2.5 MG TAB PO SCH (15:26)
[2021-08-18] MEDS: Ferrous Sulfate 325 MG TAB PO SCH (15:26)
[2021-08-18] MEDS: Carvedilol 3.125 MG TAB PO SCH (15:27)
[2021-08-18] MEDS ORDERED: predniSONE 5 MG TAB PO SCH (16:30)
[2021-08-18] MEDS ORDERED: predniSONE 5 MG TAB ONE (16:35)
[2021-08-18] MEDS ORDERED: Erythromycin Base 0.5% Oint 1 GM TUBE EA EYE SCH (21:00)
[2021-08-18] MEDS: Cyclobenzaprine 10 MG TAB PO SCH (22:26)
[2021-08-18] MEDS: Atorvastatin Calcium 40 MG TAB PO SCH (22:27)
[2021-08-18] MEDS: Acetaminophen 325 MG TAB PO PRN (22:29)
[2021-08-19 04:01] LABS: #Basophils 0.1 thou/uL (0.0-0.2); #Eosinphils 0.2 thou/uL (0.0-0.7); #Lymphocytes 2.1 thou/uL (1.20-3.40); #Monocytes 0.4 thou/uL (0.11-0.59); #Neutrophils 5.1 thou/uL (1.40-6.50); %Basophils 0.9 % (0.0-1.0); %Lymphocytes 26.4 % (21.0-51.0); %Monocytes 5.3 % (0.0-10.0); %Neutrophils 64.5 % (42.0-75.0); Hemoglobin 12.4 g/dL (12.0-16.0); Mean Corpuscular HGB CONC 31.9 g/dL (32.0-36.0); Mean Corpuscular Hemoglobin 27.4 pg (27.0-31.0); Mean Corpuscular Volume 86.1 fL (78.0-98.0); Mean Platelet Volume 7.7 fL (7.4-10.4); Platelet Count 245 thou/uL (130-400); RBC Distribution Width 14.2 % (11.5-14.5); Red Blood Cell (RBC) Count 4.53 mill/uL (4.20-5.40); White Blood Cell (WBC) Count 7.9 thou/uL (4.8-10.8)
[2021-08-19 04:44] LABS: Free T4 (Free Thyroxine) 1.09 ng/dL (0.70-1.48); Thyroid Stimulating Hormone 1.6475 uIU/mL (0.35-4.94)
[2021-08-19 05:16] LABS: ALT (SGPT) 9 U/L (8-55); AST (SGOT) 10 U/L (5-34); Albumin 3.2 g/dL (3.5-5.0); Alkaline Phosphatase 78 U/L (40-110); Anion Gap 16 mmol/L (10-20); BUN (Urea Nitrogen) 20 mg/dL (9.8-20.1); Bilirubin, Total 0.9 mg/dL (0.2-1.2); Calc. Creatinine Clearance 150 mL/min (70-130); Calcium 8.6 mg/dL (7.8-10.44); Carbon Dioxide 28 mmol/L (22-29); Chloride 92 mmol/L (98-107); Estimated GFR 74; Globulin 3.3 g/dL (2.4-3.5); Glucose 268 mg/dL (70-105); Potassium 4.3 mmol/L (3.5-5.1); Protein, Total 6.5 g/dL (6.0-8.3); Sodium 132 mmol/L (136-145)
[2021-08-19] MEDS: Levothyroxine Sodium 50 MCG TAB PO SCH (06:57)
[2021-08-19] MEDS: Pregabalin 50 MG CAP PO SCH ×2 (07:59→22:25)
[2021-08-19] MEDS: Lisinopril 2.5 MG TAB PO SCH (07:59)
[2021-08-19] MEDS: Carvedilol 3.125 MG TAB PO SCH ×2 (08:00→16:55)
[2021-08-19] MEDS: HYDROcodone/Acetaminophen 10/325 mg Tablet PO PRN ×2 (08:00→16:54)
[2021-08-19] MEDS: Furosemide 20 MG TAB PO SCH (08:00)
[2021-08-19] MEDS: Folic Acid 1 MG TAB PO SCH (08:00)
[2021-08-19] MEDS: Clopidogrel Bisulfate 75 MG TAB PO SCH (08:00)
[2021-08-19] MEDS: Ferrous Sulfate 325 MG TAB PO SCH (08:00)
[2021-08-19] MEDS: HumaLOG 300 UNITS/3 ML VIAL SC SCH ×4 (08:16→22:27)
[2021-08-19] MEDS: Bacitracin 1 PK TOP SCH ×3 (09:06→22:26)
[2021-08-19] MEDS: Insulin Glargine 30 UNITS/0.3 ML VIAL SC SCH ×2 (09:29→22:27)
[2021-08-19] MEDS: predniSONE 5 MG TAB PO SCH ×2 (11:06→22:28)
[2021-08-19] MEDS: cefTRIAXone\\ROCEPHIN 1 GM in Sodium Chloride 0.9% 100 ML IVPB SCH (14:25)
[2021-08-19] MEDS: Furosemide 20 MG/2 ML VIAL SLOW IVP SCH (14:25)
[2021-08-19] MEDS: Acetaminophen 325 MG TAB PO PRN (14:26)
[2021-08-19] MEDS ORDERED: Insulin Regular 300 UNITS/3 ML VIAL SC PRN (14:51)
[2021-08-19] MEDS: HumaLOG 300 UNITS/3 ML VIAL SC PRN (16:55)
[2021-08-19] MEDS: Atorvastatin Calcium 40 MG TAB PO SCH (22:26)
[2021-08-19] MEDS: Cyclobenzaprine 10 MG TAB PO SCH (22:27)
[2021-08-20] MEDS: Furosemide 20 MG/2 ML VIAL SLOW IVP SCH ×2 (05:39→14:12)
[2021-08-20] MEDS: Levothyroxine Sodium 50 MCG TAB PO SCH (05:39)
[2021-08-20] MEDS: Ondansetron PF 4 MG/2 ML Vial IVP PRN (05:41)
[2021-08-20 07:28] LABS: #Basophils 0.1 thou/uL (0.0-0.2); #Eosinphils 0.2 thou/uL (0.0-0.7); #Lymphocytes 2.1 thou/uL (1.20-3.40); #Monocytes 0.4 thou/uL (0.11-0.59); #Neutrophils 5.7 thou/uL (1.40-6.50); %Basophils 0.9 % (0.0-1.0); %Eosinophils 2.5 % (0.0-10.0); %Lymphocytes 24.3 % (21.0-51.0); %Monocytes 5.2 % (0.0-10.0); %Neutrophils 67.2 % (42.0-75.0); Hemoglobin 12.9 g/dL (12.0-16.0); Mean Corpuscular HGB CONC 31.5 g/dL (32.0-36.0); Mean Corpuscular Hemoglobin 27.6 pg (27.0-31.0); Mean Corpuscular Volume 87.7 fL (78.0-98.0); Mean Platelet Volume 8.4 fL (7.4-10.4); Platelet Count 224 thou/uL (130-400); RBC Distribution Width 14.1 % (11.5-14.5); Red Blood Cell (RBC) Count 4.68 mill/uL (4.20-5.40); White Blood Cell (WBC) Count 8.4 thou/uL (4.8-10.8)
[2021-08-20 07:44] LABS: Anion Gap 18 mmol/L (10-20); BUN (Urea Nitrogen) 17 mg/dL (9.8-20.1); Calc. Creatinine Clearance 181 mL/min (70-130); Calcium 9.2 mg/dL (7.8-10.44); Carbon Dioxide 27 mmol/L (22-29); Chloride 93 mmol/L (98-107); Estimated GFR 89; Glucose 350 mg/dL (70-105); Potassium 4.5 mmol/L (3.5-5.1); Sodium 133 mmol/L (136-145)
[2021-08-20] MEDS ORDERED: Carvedilol 3.125 MG TAB PO SCH (08:30)
[2021-08-20] MEDS ORDERED: Lisinopril 2.5 MG TAB PO SCH (09:00)
[2021-08-20] MEDS: Enoxaparin Sodium 40 MG/0.4 ML SYRINGE SC SCH (09:14)
[2021-08-20] MEDS: Pregabalin 50 MG CAP PO SCH ×2 (09:15→21:08)
[2021-08-20] MEDS: Clopidogrel Bisulfate 75 MG TAB PO SCH (09:16)
[2021-08-20] MEDS: Folic Acid 1 MG TAB PO SCH (09:16)
[2021-08-20] MEDS: metFORMIN 500 MG TAB PO SCH ×2 (09:17→17:49)
[2021-08-20] MEDS: predniSONE 5 MG TAB PO SCH ×2 (09:17→21:09)
[2021-08-20] MEDS: Ferrous Sulfate 325 MG TAB PO SCH (09:17)
[2021-08-20] MEDS: Bacitracin 1 PK TOP SCH ×3 (09:18→21:08)
[2021-08-20] MEDS: Insulin Glargine 30 UNITS/0.3 ML VIAL SC SCH ×2 (09:19→21:08)
[2021-08-20] MEDS: HumaLOG 300 UNITS/3 ML VIAL SC SCH ×4 (09:20→21:01)
[2021-08-20] MEDS: Carvedilol 3.125 MG TAB PO SCH (09:22)
[2021-08-20] MEDS ORDERED: Empagliflozin 10 MG TAB PO SCH (11:30)
[2021-08-20] MEDS: HYDROcodone/Acetaminophen 10/325 mg Tablet PO PRN (11:39)
[2021-08-20] MEDS ORDERED: Aspirin Chewable 81 MG TAB PO SCH (13:30)
[2021-08-20] MEDS ORDERED: Lactated Ringer's 500 ML IV SCH ×2 (18:00→21:45)
[2021-08-20] MEDS: Atorvastatin Calcium 40 MG TAB PO SCH (21:09)
[2021-08-20] MEDS: Cyclobenzaprine 10 MG TAB PO SCH (21:09)
[2021-08-21 04:45] LABS: #Eosinphils 0.2 thou/uL (0.0-0.7); #Lymphocytes 2.1 thou/uL (1.20-3.40); #Monocytes 0.5 thou/uL (0.11-0.59); #Neutrophils 6.4 thou/uL (1.40-6.50); %Basophils 0.1 % (0.0-1.0); %Eosinophils 2.2 % (0.0-10.0); %Lymphocytes 22.9 % (21.0-51.0); %Monocytes 5.4 % (0.0-10.0); %Neutrophils 69.5 % (42.0-75.0); Hemoglobin 11.3 g/dL (12.0-16.0); Mean Corpuscular HGB CONC 31.7 g/dL (32.0-36.0); Mean Corpuscular Hemoglobin 27.7 pg (27.0-31.0); Mean Corpuscular Volume 87.5 fL (78.0-98.0); Mean Platelet Volume 7.8 fL (7.4-10.4); Platelet Count 263 thou/uL (130-400); RBC Distribution Width 14.1 % (11.5-14.5); Red Blood Cell (RBC) Count 4.08 mill/uL (4.20-5.40); White Blood Cell (WBC) Count 9.1 thou/uL (4.8-10.8)
[2021-08-21 05:47] LABS: Anion Gap 18 mmol/L (10-20); BUN (Urea Nitrogen) 21 mg/dL (9.8-20.1); Calc. Creatinine Clearance 99 mL/min (70-130); Calcium 8.7 mg/dL (7.8-10.44); Carbon Dioxide 28 mmol/L (22-29); Chloride 96 mmol/L (98-107); Estimated GFR 43; Glucose 234 mg/dL (70-105); Potassium 4.7 mmol/L (3.5-5.1); Sodium 137 mmol/L (136-145)
[2021-08-21] MEDS: Levothyroxine Sodium 50 MCG TAB PO SCH (06:21)
[2021-08-21] MEDS ORDERED: Sodium Chloride 0.9% 500 ML IV SCH (07:45)
[2021-08-21] MEDS ORDERED: Empagliflozin 10 MG TAB PO SCH (09:00)
[2021-08-21] MEDS: HumaLOG 300 UNITS/3 ML VIAL SC SCH ×4 (09:17→21:35)
[2021-08-21] MEDS: Enoxaparin Sodium 40 MG/0.4 ML SYRINGE SC SCH (09:18)
[2021-08-21] MEDS: metFORMIN 500 MG TAB PO SCH ×2 (09:19→16:54)
[2021-08-21] MEDS: predniSONE 5 MG TAB PO SCH ×2 (09:19→21:24)
[2021-08-21] MEDS: Ferrous Sulfate 325 MG TAB PO SCH (09:19)
[2021-08-21] MEDS: Pregabalin 50 MG CAP PO SCH ×2 (09:20→21:25)
[2021-08-21] MEDS: Clopidogrel Bisulfate 75 MG TAB PO SCH (09:21)
[2021-08-21] MEDS: Folic Acid 1 MG TAB PO SCH (09:21)
[2021-08-21] MEDS: Aspirin Chewable 81 MG TAB PO SCH (09:21)
[2021-08-21] MEDS: Insulin Glargine 30 UNITS/0.3 ML VIAL SC SCH ×2 (10:11→21:27)
[2021-08-21] MEDS: Bacitracin 1 PK TOP SCH ×3 (10:12→21:25)
[2021-08-21] MEDS ORDERED: Furosemide 20 MG/2 ML VIAL SLOW IVP SCH ×2 (10:30→14:00)
[2021-08-21] MEDS: HYDROcodone/Acetaminophen 10/325 mg Tablet PO PRN (12:08)
[2021-08-21] MEDS ORDERED: Erythromycin Base 0.5% Oint 1 GM TUBE EA EYE SCH (21:00)
[2021-08-21] MEDS: Cyclobenzaprine 10 MG TAB PO SCH (21:23)
[2021-08-21] MEDS: Atorvastatin Calcium 40 MG TAB PO SCH (21:24)
[2021-08-22 04:42] LABS: #Eosinphils 0.3 thou/uL (0.0-0.7); #Lymphocytes 2.5 thou/uL (1.20-3.40); #Monocytes 0.6 thou/uL (0.11-0.59); %Basophils 0.2 % (0.0-1.0); %Eosinophils 2.9 % (0.0-10.0); %Lymphocytes 24.2 % (21.0-51.0); %Neutrophils 66.7 % (42.0-75.0); Hemoglobin 12.1 g/dL (12.0-16.0); Mean Corpuscular Hemoglobin 27.8 pg (27.0-31.0); Mean Corpuscular Volume 86.9 fL (78.0-98.0); Mean Platelet Volume 7.8 fL (7.4-10.4); Platelet Count 278 thou/uL (130-400); RBC Distribution Width 14.2 % (11.5-14.5); Red Blood Cell (RBC) Count 4.35 mill/uL (4.20-5.40); White Blood Cell (WBC) Count 10.4 thou/uL (4.8-10.8)
[2021-08-22 05:00] LABS: Anion Gap 17 mmol/L (10-20); BUN (Urea Nitrogen) 18 mg/dL (9.8-20.1); Calc. Creatinine Clearance 168 mL/min (70-130); Calcium 9.5 mg/dL (7.8-10.44); Carbon Dioxide 27 mmol/L (22-29); Chloride 99 mmol/L (98-107); Estimated GFR 82; Glucose 195 mg/dL (70-105); Potassium 4.8 mmol/L (3.5-5.1); Sodium 138 mmol/L (136-145)
[2021-08-22] MEDS: Levothyroxine Sodium 50 MCG TAB PO SCH (05:35)
[2021-08-22] MEDS: HYDROcodone/Acetaminophen 10/325 mg Tablet PO PRN (06:32)
[2021-08-22] MEDS: HumaLOG 300 UNITS/3 ML VIAL SC SCH ×4 (08:58→21:22)
[2021-08-22] MEDS: Folic Acid 1 MG TAB PO SCH (09:00)
[2021-08-22] MEDS: Ferrous Sulfate 325 MG TAB PO SCH (09:00)
[2021-08-22] MEDS: Enoxaparin Sodium 40 MG/0.4 ML SYRINGE SC SCH (09:00)
[2021-08-22] MEDS: metFORMIN 500 MG TAB PO SCH ×2 (09:00→18:14)
[2021-08-22] MEDS: predniSONE 5 MG TAB PO SCH ×2 (09:00→21:23)
[2021-08-22] MEDS: Aspirin Chewable 81 MG TAB PO SCH (09:00)
[2021-08-22] MEDS: Bacitracin 1 PK TOP SCH ×3 (09:01→21:22)
[2021-08-22] MEDS: Clopidogrel Bisulfate 75 MG TAB PO SCH (09:01)
[2021-08-22] MEDS: Insulin Glargine 30 UNITS/0.3 ML VIAL SC SCH ×2 (09:02→21:22)
[2021-08-22] MEDS: Pregabalin 50 MG CAP PO SCH ×2 (09:22→21:23)
[2021-08-22] MEDS ORDERED: Empagliflozin 10 MG TAB PO SCH (09:30)
[2021-08-22] MEDS ORDERED: Carvedilol 3.125 MG TAB PO SCH ×2 (09:30→17:00)
[2021-08-22] MEDS: Furosemide 20 MG TAB PO SCH (13:56)
[2021-08-22] MEDS: Acetaminophen 325 MG TAB PO PRN (19:57)
[2021-08-22 20:22] LABS: Magnesium 1.6 mg/dL (1.6-2.6)
[2021-08-22 20:56] LABS: Phosphorus 3.6 mg/dL (2.3-4.7)
[2021-08-22 21:03] LABS: Anion Gap 17 mmol/L (10-20); BUN (Urea Nitrogen) 18 mg/dL (9.8-20.1); Calc. Creatinine Clearance 147 mL/min (70-130); Calcium 9.8 mg/dL (7.8-10.44); Carbon Dioxide 29 mmol/L (22-29); Chloride 99 mmol/L (98-107); Estimated GFR 71; Glucose 109 mg/dL (70-105); Magnesium 1.4 mg/dL (1.6-2.6); Potassium 3.9 mmol/L (3.5-5.1); Sodium 141 mmol/L (136-145)
[2021-08-22] MEDS: Cyclobenzaprine 10 MG TAB PO SCH (21:22)
[2021-08-22] MEDS: Atorvastatin Calcium 40 MG TAB PO SCH (21:22)
[2021-08-22] MEDS ORDERED: Magnesium 2 GM/50 ML(in water) 2 GM in Premix Bag 1 BAG IVPB SCH (22:00)
[2021-08-23 04:02] LABS: #Eosinphils 0.3 thou/uL (0.0-0.7); #Lymphocytes 2.5 thou/uL (1.20-3.40); #Monocytes 0.6 thou/uL (0.11-0.59); #Neutrophils 6.8 thou/uL (1.40-6.50); %Basophils 0.2 % (0.0-1.0); %Eosinophils 2.5 % (0.0-10.0); %Lymphocytes 24.3 % (21.0-51.0); %Monocytes 6.2 % (0.0-10.0); %Neutrophils 66.7 % (42.0-75.0); Hemoglobin 12.5 g/dL (12.0-16.0); Mean Corpuscular HGB CONC 31.5 g/dL (32.0-36.0); Mean Corpuscular Hemoglobin 27.8 pg (27.0-31.0); Mean Corpuscular Volume 88.3 fL (78.0-98.0); Mean Platelet Volume 7.6 fL (7.4-10.4); Platelet Count 289 thou/uL (130-400); RBC Distribution Width 14.4 % (11.5-14.5); White Blood Cell (WBC) Count 10.1 thou/uL (4.8-10.8)
[2021-08-23 04:30] LABS: Anion Gap 17 mmol/L (10-20); BUN (Urea Nitrogen) 16 mg/dL (9.8-20.1); Calc. Creatinine Clearance 166 mL/min (70-130); Calcium 9.7 mg/dL (7.8-10.44); Carbon Dioxide 26 mmol/L (22-29); Chloride 97 mmol/L (98-107); Estimated GFR 82; Glucose 136 mg/dL (70-105); Potassium 4.2 mmol/L (3.5-5.1); Sodium 136 mmol/L (136-145)
[2021-08-23] MEDS: Levothyroxine Sodium 50 MCG TAB PO SCH (06:24)
[2021-08-23] MEDS: HYDROcodone/Acetaminophen 10/325 mg Tablet PO PRN (06:27)
[2021-08-23] MEDS: Enoxaparin Sodium 40 MG/0.4 ML SYRINGE SC SCH ×2 (09:21→21:42)
[2021-08-23] MEDS: Aspirin Chewable 81 MG TAB PO SCH (09:22)
[2021-08-23] MEDS: Pregabalin 50 MG CAP PO SCH ×2 (09:22→21:43)
[2021-08-23] MEDS: predniSONE 5 MG TAB PO SCH ×2 (09:22→21:43)
[2021-08-23] MEDS: Folic Acid 1 MG TAB PO SCH (09:22)
[2021-08-23] MEDS: Empagliflozin 10 MG TAB PO SCH (09:22)
[2021-08-23] MEDS: Bacitracin 1 PK TOP SCH ×3 (09:22→21:41)
[2021-08-23] MEDS: Furosemide 20 MG TAB PO SCH ×2 (09:23→14:22)
[2021-08-23] MEDS: Clopidogrel Bisulfate 75 MG TAB PO SCH (09:24)
[2021-08-23] MEDS: Ferrous Sulfate 325 MG TAB PO SCH (09:24)
[2021-08-23] MEDS: HumaLOG 300 UNITS/3 ML VIAL SC SCH ×4 (09:24→21:42)
[2021-08-23] MEDS: metFORMIN 500 MG TAB PO SCH ×2 (09:24→17:46)
[2021-08-23] MEDS: Insulin Glargine 30 UNITS/0.3 ML VIAL SC SCH ×2 (09:36→21:43)
[2021-08-23] MEDS: Magnesium Oxide 400 MG TAB PO SCH ×2 (09:36→21:43)
[2021-08-23] MEDS: Cyclobenzaprine 10 MG TAB PO SCH (21:41)
[2021-08-23] MEDS: Atorvastatin Calcium 40 MG TAB PO SCH (21:41)
[2021-08-24] MEDS: Levothyroxine Sodium 50 MCG TAB PO SCH (06:23)
[2021-08-24 06:46] LABS: #Eosinphils 0.2 thou/uL (0.0-0.7); #Lymphocytes 2.1 thou/uL (1.20-3.40); #Monocytes 0.6 thou/uL (0.11-0.59); #Neutrophils 5.6 thou/uL (1.40-6.50); %Basophils 0.2 % (0.0-1.0); %Eosinophils 2.6 % (0.0-10.0); %Lymphocytes 24.7 % (21.0-51.0); %Monocytes 7.5 % (0.0-10.0); %Neutrophils 65.1 % (42.0-75.0); Hemoglobin 12.6 g/dL (12.0-16.0); Mean Corpuscular HGB CONC 31.8 g/dL (32.0-36.0); Mean Corpuscular Hemoglobin 27.1 pg (27.0-31.0); Mean Corpuscular Volume 85.2 fL (78.0-98.0); Mean Platelet Volume 7.7 fL (7.4-10.4); Platelet Count 284 thou/uL (130-400); RBC Distribution Width 14.2 % (11.5-14.5); Red Blood Cell (RBC) Count 4.66 mill/uL (4.20-5.40); White Blood Cell (WBC) Count 8.5 thou/uL (4.8-10.8)
[2021-08-24 06:47] LABS: Anion Gap 18 mmol/L (10-20); BUN (Urea Nitrogen) 19 mg/dL (9.8-20.1); Calc. Creatinine Clearance 155 mL/min (70-130); Calcium 9.4 mg/dL (7.8-10.44); Carbon Dioxide 27 mmol/L (22-29); Chloride 97 mmol/L (98-107); Estimated GFR 76; Glucose 226 mg/dL (70-105); Magnesium 1.6 mg/dL (1.6-2.6); Potassium 3.9 mmol/L (3.5-5.1); Sodium 138 mmol/L (136-145)
[2021-08-24] MEDS: Enoxaparin Sodium 40 MG/0.4 ML SYRINGE SC SCH ×2 (08:50→22:20)
[2021-08-24] MEDS: Folic Acid 1 MG TAB PO SCH (08:50)
[2021-08-24] MEDS: Pregabalin 50 MG CAP PO SCH ×2 (08:51→22:20)
[2021-08-24] MEDS: Aspirin Chewable 81 MG TAB PO SCH (08:51)
[2021-08-24] MEDS: Clopidogrel Bisulfate 75 MG TAB PO SCH (08:52)
[2021-08-24] MEDS: predniSONE 5 MG TAB PO SCH ×2 (08:52→22:23)
[2021-08-24] MEDS: Bacitracin 1 PK TOP SCH ×3 (08:53→22:27)
[2021-08-24] MEDS: HumaLOG 300 UNITS/3 ML VIAL SC SCH ×4 (08:54→22:27)
[2021-08-24] MEDS: Insulin Glargine 30 UNITS/0.3 ML VIAL SC SCH ×2 (08:54→22:27)
[2021-08-24] MEDS: Empagliflozin 10 MG TAB PO SCH (08:55)
[2021-08-24] MEDS: Ferrous Sulfate 325 MG TAB PO SCH (08:55)
[2021-08-24] MEDS: Furosemide 20 MG TAB PO SCH ×2 (08:56→14:48)
[2021-08-24] MEDS: metFORMIN 500 MG TAB PO SCH ×2 (08:56→16:54)
[2021-08-24] MEDS: Magnesium Oxide 400 MG TAB PO SCH ×2 (08:56→22:24)
[2021-08-24] MEDS ORDERED: Magnesium 2 GM/50 ML(in water) 2 GM in Premix Bag 1 BAG IVPB SCH (09:00)
[2021-08-24] MEDS: Atorvastatin Calcium 40 MG TAB PO SCH (22:23)
[2021-08-24] MEDS: Cyclobenzaprine 10 MG TAB PO SCH (22:27)
[2021-08-25 04:28] LABS: #Basophils 0.1 thou/uL (0.0-0.2); #Eosinphils 0.3 thou/uL (0.0-0.7); #Lymphocytes 2.7 thou/uL (1.20-3.40); #Monocytes 0.2 thou/uL (0.11-0.59); #Neutrophils 7.5 thou/uL (1.40-6.50); %Basophils 0.6 % (0.0-1.0); %Eosinophils 2.8 % (0.0-10.0); %Lymphocytes 24.9 % (21.0-51.0); %Monocytes 1.7 % (0.0-10.0); Hemoglobin 12.8 g/dL (12.0-16.0); Mean Corpuscular HGB CONC 31.6 g/dL (32.0-36.0); Mean Corpuscular Hemoglobin 26.9 pg (27.0-31.0); Mean Corpuscular Volume 85.2 fL (78.0-98.0); Mean Platelet Volume 7.8 fL (7.4-10.4); Platelet Count 288 thou/uL (130-400); RBC Distribution Width 14.5 % (11.5-14.5); Red Blood Cell (RBC) Count 4.74 mill/uL (4.20-5.40); White Blood Cell (WBC) Count 10.7 thou/uL (4.8-10.8)
[2021-08-25 04:50] LABS: Anion Gap 20 mmol/L (10-20); BUN (Urea Nitrogen) 20 mg/dL (9.8-20.1); Calc. Creatinine Clearance 132 mL/min (70-130); Calcium 9.5 mg/dL (7.8-10.44); Carbon Dioxide 22 mmol/L (22-29); Chloride 98 mmol/L (98-107); Estimated GFR 64; Glucose 320 mg/dL (70-105); Potassium 4.3 mmol/L (3.5-5.1); Sodium 136 mmol/L (136-145)
[2021-08-25] MEDS: Levothyroxine Sodium 50 MCG TAB PO SCH (05:58)
[2021-08-25] MEDS ORDERED: CEFAZOLIN 1 GM VIAL ONE (06:34)
[2021-08-25] MEDS ORDERED: Adenosine 6 MG/2 ML VIAL ONE (06:34)
[2021-08-25] MEDS ORDERED: Heparin 10,000 UNITS/ 10 ML VIAL ONE (06:34)
[2021-08-25] MEDS ORDERED: Lidocaine 1% (PF) 30 ML VIAL ONE (06:34)
[2021-08-25] MEDS ORDERED: Gentamicin 80 MG/100 ML BAG ONE (06:34)
[2021-08-25] MEDS ORDERED: fentaNYL Citrate/PF 100 MCG/2 ML SYRINGE ONE ×2 (06:50→11:36)
[2021-08-25] MEDS ORDERED: Midazolam HCl 2 mg/2 ml Vial ONE ×2 (06:50→08:23)
[2021-08-25] MEDS ORDERED: PROPOFOL 200 MG/20 ML VIAL ONE (08:00)
[2021-08-25] MEDS ORDERED: Iopamidol 370 76% 50 ML VIAL FS ONE (08:00)
[2021-08-25] MEDS ORDERED: Ketamine 50 MG/ML (10ML VIAL) ONE (08:09)
[2021-08-25] MEDS: HumaLOG 300 UNITS/3 ML VIAL SC SCH ×4 (08:59→20:43)
[2021-08-25] MEDS: Ferrous Sulfate 325 MG TAB PO SCH (09:00)
[2021-08-25] MEDS: Folic Acid 1 MG TAB PO SCH (09:00)
[2021-08-25] MEDS: metFORMIN 500 MG TAB PO SCH ×2 (09:00→16:53)
[2021-08-25] MEDS: Empagliflozin 10 MG TAB PO SCH (09:00)
[2021-08-25] MEDS: Bacitracin 1 PK TOP SCH ×3 (09:00→20:41)
[2021-08-25] MEDS: Furosemide 20 MG TAB PO SCH ×2 (09:01→14:18)
[2021-08-25] MEDS: predniSONE 5 MG TAB PO SCH ×2 (09:01→20:42)
[2021-08-25] MEDS: Insulin Glargine 30 UNITS/0.3 ML VIAL SC SCH ×2 (09:01→20:42)
[2021-08-25] MEDS: Magnesium Oxide 400 MG TAB PO SCH ×2 (09:01→20:42)
[2021-08-25] MEDS: Pregabalin 50 MG CAP PO SCH ×2 (09:02→20:41)
[2021-08-25] MEDS ORDERED: Isoproterenol 0.2 MG/1 ML AMP ONE (09:09)
[2021-08-25] MEDS ORDERED: Ondansetron HCl/PF 4 MG/2 ML Vial IVP PRN (11:30)
[2021-08-25] MEDS ORDERED: Promethazine HCl 25 MG/ML VIAL IVPB PRN (11:30)
[2021-08-25] MEDS ORDERED: Promethazine HCl 25 MG/ML VIAL IM PRN (11:30)
[2021-08-25 12:36] LABS: Magnesium 1.8 mg/dL (1.6-2.6)
[2021-08-25] MEDS: HYDROcodone/Acetaminophen 10/325 mg Tablet PO PRN ×2 (14:18→22:00)
[2021-08-25] MEDS: Ondansetron PF 4 MG/2 ML Vial IVP PRN (20:30)
[2021-08-25] MEDS: Cyclobenzaprine 10 MG TAB PO SCH (20:40)
[2021-08-25] MEDS: Atorvastatin Calcium 40 MG TAB PO SCH (20:42)
[2021-08-26 04:11] LABS: #Eosinphils 0.4 thou/uL (0.0-0.7); #Lymphocytes 2.3 thou/uL (1.20-3.40); #Monocytes 0.5 thou/uL (0.11-0.59); #Neutrophils 7.5 thou/uL (1.40-6.50); %Basophils 0.4 % (0.0-1.0); %Eosinophils 3.7 % (0.0-10.0); %Lymphocytes 21.4 % (21.0-51.0); %Monocytes 4.3 % (0.0-10.0); %Neutrophils 70.2 % (42.0-75.0); Hemoglobin 12.9 g/dL (12.0-16.0); Mean Corpuscular HGB CONC 31.5 g/dL (32.0-36.0); Mean Corpuscular Hemoglobin 27.4 pg (27.0-31.0); Mean Corpuscular Volume 87.1 fL (78.0-98.0); Mean Platelet Volume 7.7 fL (7.4-10.4); Platelet Count 278 thou/uL (130-400); RBC Distribution Width 14.5 % (11.5-14.5); Red Blood Cell (RBC) Count 4.69 mill/uL (4.20-5.40); White Blood Cell (WBC) Count 10.6 thou/uL (4.8-10.8)
[2021-08-26 04:33] LABS: Anion Gap 19 mmol/L (10-20); BUN (Urea Nitrogen) 19 mg/dL (9.8-20.1); Calc. Creatinine Clearance 162 mL/min (70-130); Carbon Dioxide 22 mmol/L (22-29); Chloride 97 mmol/L (98-107); Estimated GFR 83; Glucose 312 mg/dL (70-105); Potassium 4.6 mmol/L (3.5-5.1); Sodium 133 mmol/L (136-145)
[2021-08-26] MEDS: Levothyroxine Sodium 50 MCG TAB PO SCH (06:21)
[2021-08-26] MEDS: HumaLOG 300 UNITS/3 ML VIAL SC PRN (06:22)
[2021-08-26] MEDS: HYDROcodone/Acetaminophen 10/325 mg Tablet PO PRN ×2 (06:23→17:32)
[2021-08-26 10:31] VITALS: BMI 50.3
[2021-08-26] MEDS: HumaLOG 300 UNITS/3 ML VIAL SC SCH ×3 (10:57→21:12)
[2021-08-26] MEDS: Ferrous Sulfate 325 MG TAB PO SCH (10:58)
[2021-08-26] MEDS: Insulin Glargine 30 UNITS/0.3 ML VIAL SC SCH ×2 (10:58→20:18)
[2021-08-26] MEDS: Furosemide 20 MG TAB PO SCH ×2 (10:58→17:29)
[2021-08-26] MEDS: Bacitracin 1 PK TOP SCH ×3 (10:58→20:17)
[2021-08-26] MEDS: Magnesium Oxide 400 MG TAB PO SCH ×2 (10:58→20:18)
[2021-08-26] MEDS: metFORMIN 500 MG TAB PO SCH ×2 (10:58→17:28)
[2021-08-26] MEDS: Empagliflozin 10 MG TAB PO SCH (10:58)
[2021-08-26] MEDS: Folic Acid 1 MG TAB PO SCH (10:58)
[2021-08-26] MEDS: predniSONE 5 MG TAB PO SCH ×2 (10:59→20:16)
[2021-08-26] MEDS: Pregabalin 50 MG CAP PO SCH ×2 (10:59→20:16)
[2021-08-26] MEDS: Acetaminophen 325 MG TAB PO PRN (11:00)
[2021-08-26] MEDS ORDERED: Cephalexin 250 MG CAP PO SCH (18:00)
[2021-08-26 20:11] VITALS: BP 103/52; TEMP 97.7
[2021-08-26] MEDS: Atorvastatin Calcium 40 MG TAB PO SCH (20:17)
[2021-08-26] MEDS: Cyclobenzaprine 10 MG TAB PO SCH (20:18)
== END 2021-08-26 21:28 | disposition home health service (06) | DRG 222 ==
LOC: ERS 12:25 → IMCU/EMU 14:16 → 2NO 08-19 21:54
PROVIDERS: ADMIT Family Medicine; ATTEND Student in an Organized Health Care Education/Training Program
PROC: 4A023N7 Measurement of Cardiac Sampling and Pressure, Left Heart, Percutaneous Approach (ICD-10-PCS; 2021-08-18)
PROC: 027034Z Dilation of Coronary Artery, One Artery with Drug-eluting Intraluminal Device, Percutaneous Approach (ICD-10-PCS; 2021-08-18)
PROC: B2111ZZ Fluoroscopy of Multiple Coronary Arteries using Low Osmolar Contrast (ICD-10-PCS; 2021-08-18)
PROC: B2161ZZ Fluoroscopy of Right and Left Heart using Low Osmolar Contrast (ICD-10-PCS; 2021-08-18)
PROC: B2131ZZ Fluoroscopy of Multiple Coronary Artery Bypass Grafts using Low Osmolar Contrast (ICD-10-PCS; 2021-08-18)
PROC: B21F1ZZ Fluoroscopy of Other Bypass Graft using Low Osmolar Contrast (ICD-10-PCS; 2021-08-18)
PROC: 0JH608Z Insertion of Defibrillator Generator into Chest Subcutaneous Tissue and Fascia, Open Approach (ICD-10-PCS; principal; 2021-08-25)
PROC: 02HK3KZ Insertion of Defibrillator Lead into Right Ventricle, Percutaneous Approach (ICD-10-PCS; 2021-08-25)
PROC: 02H63KZ Insertion of Defibrillator Lead into Right Atrium, Percutaneous Approach (ICD-10-PCS; 2021-08-25)
PROC: 4A023FZ Measurement of Cardiac Rhythm, Percutaneous Approach (ICD-10-PCS; 2021-08-25)
PROC: 4A0234Z Measurement of Cardiac Electrical Activity, Percutaneous Approach (ICD-10-PCS; 2021-08-25)
PROC: 5A2204Z Restoration of Cardiac Rhythm, Single (ICD-10-PCS; 2021-08-25)
DX: I21.4 Non-ST elevation (NSTEMI) myocardial infarction (principal); I50.23 Acute on chronic systolic (congestive) heart failure; I47.2 Ventricular tachycardia; N39.0 Urinary tract infection, site not specified; Z68.43 Body mass index [BMI] 50.0-59.9, adult; Z20.822 Contact with and (suspected) exposure to COVID-19; R79.89 Other specified abnormal findings of blood chemistry; E03.9 Hypothyroidism, unspecified; I11.0 Hypertensive heart disease with heart failure; G47.33 Obstructive sleep apnea (adult) (pediatric); J44.9 Chronic obstructive pulmonary disease, unspecified; M06.9 Rheumatoid arthritis, unspecified; I25.10 Atherosclerotic heart disease of native coronary artery without angina pectoris; E10.65 Type 1 diabetes mellitus with hyperglycemia; M79.7 Fibromyalgia; H54.8 Legal blindness, as defined in USA; M19.90 Unspecified osteoarthritis, unspecified site; F41.9 Anxiety disorder, unspecified; E66.01 Morbid (severe) obesity due to excess calories; G89.29 Other chronic pain; B96.20 Unspecified Escherichia coli [E. coli] as the cause of diseases classified elsewhere; E78.00 Pure hypercholesterolemia, unspecified; F32.A Depression, unspecified; E10.319 Type 1 diabetes mellitus with unspecified diabetic retinopathy without macular edema; I25.5 Ischemic cardiomyopathy; I48.0 Paroxysmal atrial fibrillation; E83.42 Hypomagnesemia; Z90.710 Acquired absence of both cervix and uterus; Z89.421 Acquired absence of other right toe(s); Z98.49 Cataract extraction status, unspecified eye; Z95.1 Presence of aortocoronary bypass graft; Z95.5 Presence of coronary angioplasty implant and graft; I25.2 Old myocardial infarction; Z87.891 Personal history of nicotine dependence; Z88.1 Allergy status to other antibiotic agents; Z88.2 Allergy status to sulfonamides; Z88.8 Allergy status to other drugs, medicaments and biological substances; Z91.09 Other allergy status, other than to drugs and biological substances; Z79.899 Other long term (current) drug therapy; Z79.84 Long term (current) use of oral hypoglycemic drugs; Z79.4 Long term (current) use of insulin; Z79.82 Long term (current) use of aspirin; Z79.890 Hormone replacement therapy; Z79.52 Long term (current) use of systemic steroids; Z87.440 Personal history of urinary (tract) infections
CPT/HCPCS: 33249; 36415; 36416; 71045; 80048; 80053; 81003; 81015; 82553; 83036; 83735; 83880; 84100; 84439; 84443; 84481; 84484; 85025; 85347; 85379; 87077; 87086; 87186; 92928; 93005; 93010; 93459; 93620; 93623; 93641; 94760; 96365; 96372; 96375; 97139; 99152; 99153; C1721; C1760; C1769; C1874; C1894; C1895; C1898; C9600; J0153; J0583; J0690; J0696; J1580; J1644; J1650; J1815; J1940; J2001; J2250; J2270; J2405; J2704; J3010; J3475; J3490; J7030; J7050; J7120; J7512; Q0162; Q9967; U0002; U0003; U0005

== ENCOUNTER 2021-09-11 14:49 | Inpatient (IN) | payer OTHER ==
[~2021-09-11 14:49] MED LIST changes: +Heparin 1,000 UNITS/ML VIAL ONE; -Iopamidol-370 76% 500 ML 1 ML ONE
[2021-09-11 15:14] LABS: #Eosinphils 0.4 thou/uL (0.0-0.7); #Lymphocytes 4.3 thou/uL (1.20-3.40); #Monocytes 0.9 thou/uL (0.11-0.59); %Basophils 0.2 % (0.0-1.0); %Eosinophils 3.1 % (0.0-10.0); %Monocytes 7.3 % (0.0-10.0); %Neutrophils 55.5 % (42.0-75.0); Hemoglobin 13.7 g/dL (12.0-16.0); Mean Corpuscular HGB CONC 32.6 g/dL (32.0-36.0); Mean Corpuscular Hemoglobin 27.7 pg (27.0-31.0); Mean Corpuscular Volume 84.7 fL (78.0-98.0); Mean Platelet Volume 8.3 fL (7.4-10.4); Platelet Count 291 thou/uL (130-400); RBC Distribution Width 15.2 % (11.5-14.5); Red Blood Cell (RBC) Count 4.94 mill/uL (4.20-5.40); White Blood Cell (WBC) Count 12.7 thou/uL (4.8-10.8)
[2021-09-11] MEDS ORDERED: NOREPINEPHRINE 8 MG/250 ML-D5W 250 ML ONE (15:23)
[2021-09-11 15:41] LABS: ALT (SGPT) 11 U/L (8-55); AST (SGOT) 18 U/L (5-34); Alkaline Phosphatase 64 U/L (40-110); Anion Gap 22 mmol/L (10-20); BUN (Urea Nitrogen) 25 mg/dL (9.8-20.1); Bilirubin, Total 0.8 mg/dL (0.2-1.2); Calc. Creatinine Clearance 0 mL/min (70-130); Calcium 8.7 mg/dL (7.8-10.44); Carbon Dioxide 19 mmol/L (22-29); Chloride 97 mmol/L (98-107); Estimated GFR 39; Globulin 3.2 g/dL (2.4-3.5); Glucose 316 mg/dL (70-105); Potassium 4.3 mmol/L (3.5-5.1); Protein, Total 6.2 g/dL (6.0-8.3); Sodium 134 mmol/L (136-145)
[2021-09-11] MEDS ORDERED: Cefepime 2 GM VIAL ONE (15:47)
[2021-09-11] MEDS ORDERED: Ondansetron PF 4 MG/2 ML Vial ONE ×2 (15:47→19:16)
[2021-09-11 15:58] LABS: CKMB 1.5 ng/mL (0-6.6)
[2021-09-11] MEDS ORDERED: Vancomycin 1 GM/200 ML BAG ONE (16:13)
[2021-09-11 17:01] LABS: Bilirubin Negative (Negative); Blood, Urine Negative (Negative); Clarity Clear (Clear); Glucose, Urine (Dipstick) Greater than 1000 mg/dL (Negative); Ketone, Urine Negative (Negative); Leukocyte Negative Leu/uL (Negative); Nitrite Negative (Negative); Protein, Urine (Dipstick) Negative (Neg-Trace); Specific Gravity, Urine 1.017 (1.002-1.036); Urobilinogen Normal mg/dL (Less than 2); pH, Urine 5.5 (5.0-9.0)
[2021-09-11 18:17] LABS: Lactic Acid 2.1 mmol/L (0.5-2.2)
[2021-09-11] MEDS ORDERED: Dextrose 50% Abboject 50 ML SYRINGE SLOW IVP PRN (18:30)
[2021-09-11] MEDS ORDERED: HumaLOG 300 UNITS/3 ML VIAL SC PRN ×3 (18:30→18:38)
[2021-09-11] MEDS ORDERED: Dextrose 5% in Water 1,000 ML IV PRN (18:30)
[2021-09-11 18:37] LABS: SARS-CoV-2 NAA Rapid Test Not Detected (NotDetected)
[2021-09-11 20:04] LABS: Magnesium 1.5 mg/dL (1.6-2.6)
[2021-09-11] MEDS ORDERED: Magnesium 2 GM/50 ML(in water) 2 GM in Premix Bag 1 BAG IVPB SCH (20:15)
[2021-09-11] MEDS ORDERED: Magnesium 2 GM/50 ML BAG (IN WATER) ONE (20:26)
[2021-09-11] MEDS ORDERED: Lidocaine 2% PF 5 ML VIAL ONE (20:48)
[2021-09-11] MEDS ORDERED: Lidocaine 5% Patch TD SCH (21:00)
[2021-09-11] MEDS ORDERED: Acetaminophen 650 MG Suppository PR PRN (22:10)
[2021-09-12] MEDS ORDERED: Cefepime 2 GM in Sodium Chloride 0.9% 100 ML IVPB SCH (00:01)
[2021-09-12] MEDS ORDERED: Vancomycin 1 GM in Premix Bag 1 BAG IVPB SCH (00:15)
[2021-09-12] MEDS: Insulin Glargine 30 UNITS/0.3 ML VIAL SC SCH ×2 (00:48→21:46)
[2021-09-12] MEDS: Cefepime 1 GM in Sodium Chloride 0.9% 100 ML IVPB SCH ×2 (03:38→14:48)
[2021-09-12 03:40] LABS: #Basophils 0.1 thou/uL (0.0-0.2); #Eosinphils 0.5 thou/uL (0.0-0.7); #Lymphocytes 4.1 thou/uL (1.20-3.40); #Monocytes 1.2 thou/uL (0.11-0.59); #Neutrophils 8.8 thou/uL (1.40-6.50); %Basophils 0.4 % (0.0-1.0); %Eosinophils 3.1 % (0.0-10.0); %Lymphocytes 28.2 % (21.0-51.0); %Monocytes 7.9 % (0.0-10.0); %Neutrophils 60.4 % (42.0-75.0); Hemoglobin 13.7 g/dL (12.0-16.0); Mean Corpuscular HGB CONC 32.7 g/dL (32.0-36.0); Mean Corpuscular Hemoglobin 28.1 pg (27.0-31.0); Mean Corpuscular Volume 85.9 fL (78.0-98.0); Platelet Count 298 thou/uL (130-400); RBC Distribution Width 15.3 % (11.5-14.5); Red Blood Cell (RBC) Count 4.87 mill/uL (4.20-5.40); White Blood Cell (WBC) Count 14.7 thou/uL (4.8-10.8)
[2021-09-12 04:03] LABS: ALT (SGPT) 10 U/L (8-55); AST (SGOT) 10 U/L (5-34); Albumin 3.2 g/dL (3.5-5.0); Alkaline Phosphatase 64 U/L (40-110); Anion Gap 19 mmol/L (10-20); BUN (Urea Nitrogen) 19 mg/dL (9.8-20.1); Bilirubin, Total 0.5 mg/dL (0.2-1.2); Calc. Creatinine Clearance 123 mL/min (70-130); Calcium 8.7 mg/dL (7.8-10.44); Carbon Dioxide 20 mmol/L (22-29); Chloride 102 mmol/L (98-107); Estimated GFR 61; Globulin 3.5 g/dL (2.4-3.5); Glucose 243 mg/dL (70-105); Magnesium 2.1 mg/dL (1.6-2.6); Potassium 3.4 mmol/L (3.5-5.1); Protein, Total 6.7 g/dL (6.0-8.3); Sodium 138 mmol/L (136-145)
[2021-09-12] MEDS: Potassium Chloride 20 MEQ in Premix Bag 1 BAG IVPB SCH ×2 (05:08→07:49)
[2021-09-12] MEDS ORDERED: Lactated Ringer's 500 ML IV SCH (06:15)
[2021-09-12] MEDS: Enoxaparin Sodium 40 MG/0.4 ML SYRINGE SC SCH (08:07)
[2021-09-12] MEDS ORDERED: HumaLOG 300 UNITS/3 ML VIAL SC PRN (08:07)
[2021-09-12] MEDS ORDERED: Pantoprazole 40 MG VIAL IVP SCH (09:00)
[2021-09-12] MEDS ORDERED: Transdermal Patch Removal TOP SCH (09:00)
[2021-09-12] MEDS ORDERED: HYDROcodone/Acetaminophen 10/325 mg Tablet PO PRN (10:45)
[2021-09-12 11:16] LABS: Phosphorus 4.1 mg/dL (2.3-4.7)
[2021-09-12] MEDS: Amiodarone 450 MG in Dextrose 5% in Water 250 ML IVPB SCH ×2 (12:29→22:23)
[2021-09-12] MEDS ORDERED: CEFAZOLIN 1 GM VIAL ONE (12:32)
[2021-09-12] MEDS ORDERED: Lidocaine 1% PF 5 ML VIAL ONE ×2 (12:32→13:03)
[2021-09-12] MEDS ORDERED: Fentanyl 100 MCG/2 ML VIAL ONE (12:57)
[2021-09-12] MEDS ORDERED: Midazolam HCl 2 mg/2 ml Vial ONE (12:58)
[2021-09-12] MEDS ORDERED: Gentamicin 80 MG/100 ML BAG ONE (13:03)
[2021-09-12] MEDS ORDERED: Lidocaine 1% (PF) 30 ML VIAL ONE (13:41)
[2021-09-12] MEDS: VANCOMYCIN 2 GRAM/500 ML BAG 2 GM in Premix Bag 1 BAG IVPB SCH (15:08)
[2021-09-12] MEDS: NOREPINEPHRINE 8 MG/250 ML-D5W 250 ML IVPB SCH (15:09)
[2021-09-12] MEDS: HumaLOG 300 UNITS/3 ML VIAL SC PRN ×2 (15:55→21:32)
[2021-09-12] MEDS: HYDROcodone/Acetaminophen 10/325 mg Tablet PO PRN ×2 (16:02→20:12)
[2021-09-12] MEDS: Mometasone 200 MCG/Formoterol 5 MCG 120 PUFF INHALER INH SCH (18:15)
[2021-09-12] MEDS: predniSONE 5 MG TAB PO SCH (20:12)
[2021-09-12] MEDS: Magnesium Oxide 400 MG TAB PO SCH (20:12)
[2021-09-12] MEDS: Pregabalin 50 MG CAP PO SCH (20:14)
[2021-09-12] MEDS ORDERED: Atorvastatin Calcium 40 MG TAB PO SCH (21:00)
[2021-09-12] MEDS ORDERED: Cyclobenzaprine 10 MG TAB PO SCH (21:00)
[2021-09-12] MEDS: Terbinafine 1% 30 GM TUBE TOP SCH (21:32)
[2021-09-13] MEDS: NOREPINEPHRINE 8 MG/250 ML-D5W 250 ML IVPB SCH (02:27)
[2021-09-13] MEDS: Cefepime 1 GM in Sodium Chloride 0.9% 100 ML IVPB SCH (02:27)
[2021-09-13] MEDS: HYDROcodone/Acetaminophen 10/325 mg Tablet PO PRN (02:28)
[2021-09-13] MEDS ORDERED: Levothyroxine Sodium 50 MCG TAB PO SCH (06:00)
[2021-09-13] MEDS: HumaLOG 300 UNITS/3 ML VIAL SC PRN ×3 (06:42→22:26)
[2021-09-13 07:09] LABS: #Basophils 0.1 thou/uL (0.0-0.2); #Eosinphils 0.3 thou/uL (0.0-0.7); #Lymphocytes 3.9 thou/uL (1.20-3.40); #Monocytes 1.2 thou/uL (0.11-0.59); #Neutrophils 10.1 thou/uL (1.40-6.50); %Basophils 0.5 % (0.0-1.0); %Eosinophils 1.8 % (0.0-10.0); %Lymphocytes 24.9 % (21.0-51.0); %Neutrophils 64.9 % (42.0-75.0); Mean Corpuscular HGB CONC 31.2 g/dL (32.0-36.0); Mean Corpuscular Hemoglobin 27.3 pg (27.0-31.0); Mean Corpuscular Volume 87.5 fL (78.0-98.0); Platelet Count 319 thou/uL (130-400); Red Blood Cell (RBC) Count 4.78 mill/uL (4.20-5.40); White Blood Cell (WBC) Count 15.5 thou/uL (4.8-10.8)
[2021-09-13] MEDS: Mometasone 200 MCG/Formoterol 5 MCG 120 PUFF INHALER INH SCH ×2 (07:21→18:27)
[2021-09-13] MEDS: Terbinafine 1% 30 GM TUBE TOP SCH (08:00)
[2021-09-13 08:21] LABS: Albumin 3.2 g/dL (3.5-5.0)
[2021-09-13 08:22] LABS: Calcium 9.1 mg/dL (7.8-10.44); Chloride 103 mmol/L (98-107); Sodium 132 mmol/L (136-145)
[2021-09-13 08:23] LABS: Globulin 3.8 g/dL (2.4-3.5); Glucose 307 mg/dL (70-105)
[2021-09-13 08:25] LABS: Bilirubin, Total 0.5 mg/dL (0.2-1.2)
[2021-09-13 08:26] LABS: Alkaline Phosphatase 63 U/L (40-110); Calc. Creatinine Clearance 102 mL/min (70-130); Estimated GFR 48
[2021-09-13 08:27] LABS: BUN (Urea Nitrogen) 12 mg/dL (9.8-20.1)
[2021-09-13 08:28] LABS: AST (SGOT) 13 U/L (5-34)
[2021-09-13 08:29] LABS: ALT (SGPT) 8 U/L (8-55); Magnesium 1.8 mg/dL (1.6-2.6)
[2021-09-13] MEDS ORDERED: Aspirin Chewable 81 MG TAB PO SCH (09:00)
[2021-09-13] MEDS ORDERED: Cholecalciferol 1,000 UNITS (25 MCG) TAB PO SCH (09:00)
[2021-09-13] MEDS ORDERED: Folic Acid 1 MG TAB PO SCH (09:00)
[2021-09-13] MEDS ORDERED: Ferrous Sulfate 325 MG TAB PO SCH (09:00)
[2021-09-13] MEDS ORDERED: Empagliflozin 10 MG TAB PO SCH (09:00)
[2021-09-13] MEDS ORDERED: Clopidogrel Bisulfate 75 MG TAB PO SCH (09:00)
[2021-09-13] MEDS: Phenylephrine 40 MG/NS 250 ML 40 MG in Premix Bag 1 BAG IVPB SCH ×3 (09:34→20:58)
[2021-09-13] MEDS: Pregabalin 50 MG CAP PO SCH (09:35)
[2021-09-13 09:42] LABS: Actual Bicarbonate (HCO3a) 12.2 mEq/L (22-28); Base Excess (BEa) -16.4 mEq/L (-2.0 to +3.0); CO2 Tension 38.5 mmHg (35.0-45.0); Carboxyhemoglobin (COHb) 1.4 gm% (0.0-3.0); Hemoglobin (Hb) 13.3 g/dL (12.0-16.0); Potassium - ABG Lab 5.93 mmol/L (3.70-5.30)
[2021-09-13 09:43] LABS: ALV-art Gradient 54.955 mmHg (0-20); O2 Tension (PaO2), arterial 45.6 mmHg (80.0-100.0); Puncture Site RRA; pH, Arterial 7.12 (7.35-7.45)
[2021-09-13 09:45] LABS: Carbon Dioxide 11 mmol/L (22-29)
[2021-09-13] MEDS ORDERED: Phenylephrine 40 MG in Sodium Chloride 0.9% 250 ML 250 ML IVPB SCH (09:45)
[2021-09-13] MEDS ORDERED: Sodium Bicarb 50 MEQ/50 ML VIAL ONE (09:46)
[2021-09-13 09:48] LABS: Anion Gap 24 mmol/L (10-20)
[2021-09-13] MEDS ORDERED: Naloxone HCl 0.4 mg/ml Vial ONE (09:55)
[2021-09-13] MEDS ORDERED: Insulin Regular 300 UNITS/3 ML VIAL IVP SCH (09:58)
[2021-09-13] MEDS ORDERED: Sodium Bicarb 50 MEQ/50 ML Abboject 8.4% SYRINGE IVP SCH (10:00)
[2021-09-13] MEDS ORDERED: Sodium Bicarbonate 150 MEQ in Dextrose 5% in Water 850 ML IV SCH (10:00)
[2021-09-13] MEDS ORDERED: Sodium Chloride 0.9% 500 ML IV SCH (10:00)
[2021-09-13] MEDS ORDERED: Naloxone HCl 0.4 mg/ml Vial IV SCH (10:00)
[2021-09-13] MEDS ORDERED: Electrolyte Replacement Protocol 1 EACH FS ONE (10:21)
[2021-09-13] MEDS ORDERED: Insulin Regular 300 UNITS/3 ML VIAL ONE (10:27)
[2021-09-13] MEDS ORDERED: Electrolyte Replacement Protocol 1 EACH FS SCH (10:30)
[2021-09-13] MEDS ORDERED: Pantoprazole 40 MG VIAL IVP SCH ×2 (10:30→11:15)
[2021-09-13] MEDS: Ondansetron PF 4 MG/2 ML Vial IVP PRN ×2 (10:37→18:07)
[2021-09-13] MEDS ORDERED: Electrolyte Replacement Protocol FS PRN (10:45)
[2021-09-13] MEDS ORDERED: Sodium Bicarb 50 MEQ/50 ML VIAL IVP SCH (10:45)
[2021-09-13] MEDS: Hydrocortisone Sod Succ/PF 100 mg/2 ml Vial IVP SCH ×2 (10:46→18:27)
[2021-09-13] MEDS: Magnesium Oxide 400 MG TAB PO SCH (10:56)
[2021-09-13] MEDS: Enoxaparin Sodium 40 MG/0.4 ML SYRINGE SC SCH (10:56)
[2021-09-13] MEDS: predniSONE 5 MG TAB PO SCH (10:56)
[2021-09-13] MEDS ORDERED: Albumin 5% 0 ML ONE (11:09)
[2021-09-13] MEDS: Sodium Bicarbonate 150 MEQ in Dextrose 5% in Water 850 ML IV SCH ×2 (11:21→21:05)
[2021-09-13 13:32] LABS: Base Excess (BEa) -12.7 mEq/L (-2.0 to +3.0); CO2 Tension 40.6 mmHg (35.0-45.0); Calcium, Ionized (arterial) 1.17 mmol/L (1.12-1.30); Carboxyhemoglobin (COHb) 1.3 gm% (0.0-3.0); Hemoglobin (Hb) 13.3 g/dL (12.0-16.0); Potassium - ABG Lab 4.87 mmol/L (3.70-5.30)
[2021-09-13 13:33] LABS: O2 Tension (PaO2), arterial 39.4 mmHg (80.0-100.0); pH, Arterial 7.19 (7.35-7.45)
[2021-09-13 13:34] LABS: Puncture Site ARM VEIN
[2021-09-13] MEDS ORDERED: Magnesium 2 GM/50 ML(in water) 2 GM in Premix Bag 1 BAG IVPB SCH (14:00)
[2021-09-13] MEDS: Amiodarone 450 MG in Dextrose 5% in Water 250 ML IVPB SCH (14:03)
[2021-09-13 14:51] LABS: Actual Bicarbonate (HCO3v) 18 mEq/L (22-28); Base Excess -7.5 mEq/L (-2.0 to +3.0); Chloride (VBG) 105 mmol/L (98-106); Hemoglobin (Hb) 13.5 g/dL (11.7-16.0); Potassium (VBG) 5.38 mmol/L (3.70-5.30); Sodium 137.3 mmol/L (133-146); pH (venous) 7.31 (7.32-7.43)
[2021-09-13] MEDS ORDERED: Cefepime 2 GM in Sodium Chloride 0.9% 100 ML IVPB SCH (15:00)
[2021-09-13] MEDS ORDERED: Sodium Chloride 0.9% 1,000 ML IV SCH (16:30)
[2021-09-13] MEDS: VANCOMYCIN 2 GRAM/500 ML BAG 2 GM in Premix Bag 1 BAG IVPB SCH (16:57)
[2021-09-13] MEDS: Vasopressin 20 UNIT, Admixture Fee 1 EACH in Sodium Chloride 0.9% 50 ML IV SCH (17:00)
[2021-09-13 17:21] LABS: Glucose 302 mg/dL (70-105)
[2021-09-13] MEDS: VANCOMYCIN 1.25 GM/250 ML BAG 1.25 GM in Premix Bag 1 BAG IVPB SCH (18:26)
[2021-09-13 18:35] LABS: Potassium 5.3 mmol/L (3.5-5.1)
[2021-09-13] MEDS ORDERED: Enoxaparin Sodium 60 MG/0.6 ML SYRINGE SC SCH (21:00)
[2021-09-13 21:23] LABS: Glucose 296 mg/dL (70-105)
[2021-09-13 21:24] LABS: Lactic Acid 2.5 mmol/L (0.5-2.2)
[2021-09-13] MEDS: Insulin Glargine 30 UNITS/0.3 ML VIAL SC SCH (22:24)
[2021-09-14] MEDS: Vasopressin 20 UNIT, Admixture Fee 1 EACH in Sodium Chloride 0.9% 50 ML IV SCH ×3 (00:11→15:38)
[2021-09-14] MEDS: Hydrocortisone Sod Succ/PF 100 mg/2 ml Vial IVP SCH ×5 (00:32→23:57)
[2021-09-14] MEDS: Terbinafine 1% 30 GM TUBE TOP SCH ×3 (00:32→20:35)
[2021-09-14] MEDS: Ondansetron PF 4 MG/2 ML Vial IVP PRN ×2 (00:32→09:14)
[2021-09-14 01:21] LABS: Glucose 334 mg/dL (70-105)
[2021-09-14] MEDS: HumaLOG 300 UNITS/3 ML VIAL SC PRN ×2 (02:05→09:12)
[2021-09-14] MEDS: Cefepime 2 GM in Sodium Chloride 0.9% 100 ML IVPB SCH ×2 (03:38→15:37)
[2021-09-14] MEDS: Phenylephrine 40 MG/NS 250 ML 40 MG in Premix Bag 1 BAG IVPB SCH ×2 (04:38→11:13)
[2021-09-14 06:00] LABS: #Lymphocytes 1.6 thou/uL (1.20-3.40); #Monocytes 1.1 thou/uL (0.11-0.59); #Neutrophils 12.7 thou/uL (1.40-6.50); %Eosinophils 0.1 % (0.0-10.0); %Lymphocytes 10.2 % (21.0-51.0); %Monocytes 7.2 % (0.0-10.0); %Neutrophils 82.5 % (42.0-75.0); Hemoglobin 13.2 g/dL (12.0-16.0); Mean Corpuscular HGB CONC 31.4 g/dL (32.0-36.0); Mean Corpuscular Hemoglobin 27.1 pg (27.0-31.0); Mean Corpuscular Volume 86.3 fL (78.0-98.0); Mean Platelet Volume 7.8 fL (7.4-10.4); Platelet Count 295 thou/uL (130-400); RBC Distribution Width 15.3 % (11.5-14.5); Red Blood Cell (RBC) Count 4.87 mill/uL (4.20-5.40); White Blood Cell (WBC) Count 15.4 thou/uL (4.8-10.8)
[2021-09-14 06:28] LABS: Glucose 349 mg/dL (70-105)
[2021-09-14 06:40] LABS: ALT (SGPT) 2165 U/L (8-55); AST (SGOT) Greater than 3500 U/L (5-34); Albumin 3.1 g/dL (3.5-5.0); Alkaline Phosphatase 252 U/L (40-110); Anion Gap 23 mmol/L (10-20); BUN (Urea Nitrogen) 19 mg/dL (9.8-20.1); Bilirubin, Total 1.1 mg/dL (0.2-1.2); Calc. Creatinine Clearance 97 mL/min (70-130); Calcium 8.7 mg/dL (7.8-10.44); Carbon Dioxide 21 mmol/L (22-29); Chloride 103 mmol/L (98-107); Estimated GFR 46; Globulin 3.6 g/dL (2.4-3.5); Glucose 352 mg/dL (70-105); Magnesium 2.6 mg/dL (1.6-2.6); Potassium 5.5 mmol/L (3.5-5.1); Protein, Total 6.7 g/dL (6.0-8.3); Sodium 141 mmol/L (136-145)
[2021-09-14 06:52] LABS: Actual Bicarbonate (HCO3v) 23 mEq/L (22-28); Calcium, Ionized (venous) 1.04 mmol/L (1.16-1.32); Chloride (VBG) 104 mmol/L (98-106); Hemoglobin (Hb) 13.9 g/dL (11.7-16.0); Sodium 139.3 mmol/L (133-146); pH (venous) 7.35 (7.32-7.43)
[2021-09-14] MEDS: Mometasone 200 MCG/Formoterol 5 MCG 120 PUFF INHALER INH SCH ×2 (07:13→18:36)
[2021-09-14] MEDS ORDERED: Sodium Chloride 0.9% 500 ML IV SCH ×2 (08:00→17:30)
[2021-09-14] MEDS: VANCOMYCIN 1.25 GM/250 ML BAG 1.25 GM in Premix Bag 1 BAG IVPB SCH ×2 (08:13→19:31)
[2021-09-14] MEDS ORDERED: Levothyroxine Sodium 50 MCG TAB PO SCH (08:15)
[2021-09-14 08:24] LABS: Lactic Acid 5.6 mmol/L (0.5-2.2)
[2021-09-14 08:41] LABS: Glucose 357 mg/dL (70-105)
[2021-09-14 08:49] LABS: Bacteria/HPF None Seen HPF (None Seen); Squamous Epithelial 0-3 HPF (0-3)
[2021-09-14] MEDS: Magnesium Oxide 400 MG TAB PO SCH ×2 (08:59→21:04)
[2021-09-14] MEDS: Clopidogrel Bisulfate 75 MG TAB PO SCH (08:59)
[2021-09-14] MEDS: Aspirin 81 mg Enteric Coated Tablet PO SCH (08:59)
[2021-09-14] MEDS: Pregabalin 75 MG CAP PO SCH ×2 (09:00→20:27)
[2021-09-14] MEDS: Folic Acid 1 MG TAB PO SCH (09:01)
[2021-09-14] MEDS: Pantoprazole 40 MG VIAL IVP SCH (09:05)
[2021-09-14] MEDS: Insulin Glargine 30 UNITS/0.3 ML VIAL SC SCH ×2 (09:08→21:03)
[2021-09-14] MEDS: tiZANidine HCl 4 MG TAB PO PRN (09:27)
[2021-09-14] MEDS ORDERED: NOREPINEPHRINE 8 MG/250 ML-D5W 250 ML IVPB SCH (10:21)
[2021-09-14] MEDS ORDERED: Enoxaparin Sodium 60 MG/0.6 ML SYRINGE SC SCH (10:45)
[2021-09-14 11:21] LABS: Anion Gap 21 mmol/L (10-20); BUN (Urea Nitrogen) 22 mg/dL (9.8-20.1); Calc. Creatinine Clearance 109 mL/min (70-130); Calcium 8.2 mg/dL (7.8-10.44); Carbon Dioxide 20 mmol/L (22-29); Chloride 103 mmol/L (98-107); Estimated GFR 52; Glucose 325 mg/dL (70-105); Potassium 5.1 mmol/L (3.5-5.1); Sodium 139 mmol/L (136-145)
[2021-09-14] MEDS: HUMULIN R 100 UNITS in Sodium Chloride 0.9% 100 ML IVPB SCH ×2 (12:19→22:29)
[2021-09-14 15:48] LABS: INR-International Normal Ratio 2.2; Prothrombin Time 24.4 sec (12.0-14.7)
[2021-09-14 15:49] LABS: PTT 33.4 sec (22.9-36.1)
[2021-09-14 15:51] LABS: Glucose 254 mg/dL (70-105)
[2021-09-14 15:56] LABS: Anion Gap 15 mmol/L (10-20); BUN (Urea Nitrogen) 23 mg/dL (9.8-20.1); Calc. Creatinine Clearance 109 mL/min (70-130); Calcium 8.2 mg/dL (7.8-10.44); Carbon Dioxide 25 mmol/L (22-29); Chloride 102 mmol/L (98-107); Estimated GFR 53; Glucose 257 mg/dL (70-105); Potassium 4.4 mmol/L (3.5-5.1); Sodium 138 mmol/L (136-145)
[2021-09-14 16:26] LABS: Lactic Acid 3.8 mmol/L (0.5-2.2)
[2021-09-14] MEDS: Ferrous Sulfate 325 MG TAB PO SCH (18:25)
[2021-09-14 19:55] LABS: Anion Gap 15 mmol/L (10-20); BUN (Urea Nitrogen) 24 mg/dL (9.8-20.1); Calc. Creatinine Clearance 107 mL/min (70-130); Calcium 8.1 mg/dL (7.8-10.44); Carbon Dioxide 24 mmol/L (22-29); Chloride 105 mmol/L (98-107); Estimated GFR 51; Glucose 183 mg/dL (70-105); Potassium 4.4 mmol/L (3.5-5.1); Sodium 140 mmol/L (136-145)
[2021-09-14] MEDS: Cholecalciferol 1,000 UNITS (25 MCG) TAB PO SCH (20:28)
[2021-09-14] MEDS: Enoxaparin Sodium 60 MG/0.6 ML SYRINGE SC SCH (20:28)
[2021-09-14 20:44] LABS: Anion Gap 14 mmol/L (10-20); BUN (Urea Nitrogen) 25 mg/dL (9.8-20.1); Calc. Creatinine Clearance 108 mL/min (70-130); Calcium 8.3 mg/dL (7.8-10.44); Carbon Dioxide 24 mmol/L (22-29); Chloride 105 mmol/L (98-107); Estimated GFR 52; Glucose 170 mg/dL (70-105); Potassium 4.3 mmol/L (3.5-5.1); Sodium 139 mmol/L (136-145)
[2021-09-14] MEDS ORDERED: Lantus 1000 UNITS/10 ML VIAL SC SCH (21:00)
[2021-09-14] MEDS ORDERED: Atorvastatin Calcium 40 MG TAB PO SCH (21:00)
[2021-09-14] MEDS: Amiodarone 450 MG in Dextrose 5% in Water 250 ML IVPB SCH (21:33)
[2021-09-15] MEDS: Vasopressin 20 UNIT, Admixture Fee 1 EACH in Sodium Chloride 0.9% 50 ML IV SCH (00:14)
[2021-09-15 01:07] LABS: Lactic Acid 2.3 mmol/L (0.5-2.2)
[2021-09-15] MEDS: Cefepime 2 GM in Sodium Chloride 0.9% 100 ML IVPB SCH (02:15)
[2021-09-15] MEDS: tiZANidine HCl 4 MG TAB PO PRN (03:12)
[2021-09-15 03:28] LABS: Actual Bicarbonate (HCO3v) 24 mEq/L (22-28); Base Excess -0.3 mEq/L (-2.0 to +3.0); Calcium, Ionized (venous) 1.01 mmol/L (1.16-1.32); Chloride (VBG) 105 mmol/L (98-106); Hemoglobin (Hb) 13.1 g/dL (11.7-16.0); Potassium (VBG) 4.32 mmol/L (3.70-5.30); Sodium 137.6 mmol/L (133-146); pH (venous) 7.44 (7.32-7.43)
[2021-09-15 03:51] LABS: Albumin 3.1 g/dL (3.5-5.0); Alkaline Phosphatase 217 U/L (40-110); Anion Gap 17 mmol/L (10-20); BUN (Urea Nitrogen) 28 mg/dL (9.8-20.1); Bilirubin, Total 1.3 mg/dL (0.2-1.2); Calc. Creatinine Clearance 91 mL/min (70-130); Calcium 8.3 mg/dL (7.8-10.44); Carbon Dioxide 21 mmol/L (22-29); Chloride 104 mmol/L (98-107); Estimated GFR 42; Globulin 3.3 g/dL (2.4-3.5); Glucose 166 mg/dL (70-105); Magnesium 2.2 mg/dL (1.6-2.6); Potassium 4.3 mmol/L (3.5-5.1); Protein, Total 6.4 g/dL (6.0-8.3); Sodium 138 mmol/L (136-145)
[2021-09-15 04:04] LABS: ALT (SGPT) 5123 U/L (8-55)
[2021-09-15 04:07] LABS: #Lymphocytes 1.8 thou/uL (1.20-3.40); #Monocytes 0.8 thou/uL (0.11-0.59); #Neutrophils 14.5 thou/uL (1.40-6.50); %Basophils 0.2 % (0.0-1.0); %Eosinophils 0.2 % (0.0-10.0); %Lymphocytes 10.5 % (21.0-51.0); %Monocytes 4.6 % (0.0-10.0); %Neutrophils 84.5 % (42.0-75.0); Hemoglobin 12.4 g/dL (12.0-16.0); Mean Corpuscular HGB CONC 31.9 g/dL (32.0-36.0); Mean Corpuscular Hemoglobin 27.6 pg (27.0-31.0); Mean Corpuscular Volume 86.6 fL (78.0-98.0); Mean Platelet Volume 7.9 fL (7.4-10.4); Platelet Count 226 thou/uL (130-400); RBC Distribution Width 15.8 % (11.5-14.5); Red Blood Cell (RBC) Count 4.47 mill/uL (4.20-5.40); White Blood Cell (WBC) Count 17.2 thou/uL (4.8-10.8)
[2021-09-15 04:08] LABS: Anisocytosis SLIGHT = 6-15 cells (100X) (0-5/hpf); Hypochromia SLIGHT = 6-15 cells (100X) (0-5/hpf); Lymphocytes 8 % (21-51); MDiff Complete? YES; Monocytes 9 % (0-10); Neutrophil 83 % (42-75); Platelet Morphology Comment Appears Adequate; Polychromasia SLIGHT = 2-3 cells (100X) (0-2/hpf)
[2021-09-15 04:19] LABS: AST (SGOT) Greater than 3500 U/L (5-34)
[2021-09-15] MEDS: Levothyroxine Sodium 50 MCG TAB PO SCH (05:24)
[2021-09-15] MEDS: Hydrocortisone Sod Succ/PF 100 mg/2 ml Vial IVP SCH ×4 (05:24→23:20)
[2021-09-15] MEDS: VANCOMYCIN 1.25 GM/250 ML BAG 1.25 GM in Premix Bag 1 BAG IVPB SCH (05:41)
[2021-09-15] MEDS: Mometasone 200 MCG/Formoterol 5 MCG 120 PUFF INHALER INH SCH ×2 (07:23→18:58)
[2021-09-15] MEDS: Pantoprazole 40 MG VIAL IVP SCH (08:27)
[2021-09-15] MEDS: Enoxaparin Sodium 60 MG/0.6 ML SYRINGE SC SCH ×2 (08:27→22:25)
[2021-09-15] MEDS: Ferrous Sulfate 325 MG TAB PO SCH ×2 (08:28→17:25)
[2021-09-15] MEDS: Folic Acid 1 MG TAB PO SCH (08:28)
[2021-09-15] MEDS: Clopidogrel Bisulfate 75 MG TAB PO SCH (08:28)
[2021-09-15] MEDS: Aspirin 81 mg Enteric Coated Tablet PO SCH (08:28)
[2021-09-15] MEDS: Pregabalin 75 MG CAP PO SCH ×3 (08:28→23:23)
[2021-09-15] MEDS: Terbinafine 1% 30 GM TUBE TOP SCH ×2 (08:30→22:25)
[2021-09-15] MEDS: Ondansetron PF 4 MG/2 ML Vial IVP PRN ×2 (09:00→20:04)
[2021-09-15] MEDS: Amiodarone 450 MG in Dextrose 5% in Water 250 ML IVPB SCH (12:12)
[2021-09-15] MEDS: traMADol HCl 50 MG TAB PO PRN ×2 (12:13→20:04)
[2021-09-15 13:30] VITALS: BMI 50.6
[2021-09-15 14:37] LABS: Lactic Acid 2.6 mmol/L (0.5-2.2)
[2021-09-15 14:40] LABS: Anion Gap 19 mmol/L (10-20); BUN (Urea Nitrogen) 33 mg/dL (9.8-20.1); Calc. Creatinine Clearance 74 mL/min (70-130); Calcium 7.9 mg/dL (7.8-10.44); Carbon Dioxide 18 mmol/L (22-29); Chloride 102 mmol/L (98-107); Estimated GFR 32; Glucose 244 mg/dL (70-105); Potassium 3.9 mmol/L (3.5-5.1); Sodium 135 mmol/L (136-145)
[2021-09-15] MEDS: cefTRIAXone\\ROCEPHIN 2 GM in Sodium Chloride 0.9% 100 ML IVPB SCH (15:18)
[2021-09-15 16:42] LABS: Phosphorus 2.4 mg/dL (2.3-4.7)
[2021-09-15] MEDS: Dextrose 5 % And 0.9 % NaCl 1,000 ML IV SCH (16:56)
[2021-09-15] MEDS: HUMULIN R 100 UNITS in Sodium Chloride 0.9% 100 ML IVPB SCH (18:46)
[2021-09-15] MEDS: EPINEPHrine 4 MG in Dextrose 5% in Water 250 ML IV SCH (18:46)
[2021-09-15] MEDS: DOPamine 400 MG/D5W 250 ML 250 ML IVPB SCH (21:03)
[2021-09-15] MEDS: Cholecalciferol 1,000 UNITS (25 MCG) TAB PO SCH ×2 (22:25→23:24)
[2021-09-15] MEDS ORDERED: Furosemide 100 MG/10 ML VIAL IVPB SCH (23:15)
[2021-09-16] MEDS: EPINEPHrine 4 MG in Dextrose 5% in Water 250 ML IV SCH ×2 (00:50→17:58)
[2021-09-16] MEDS ORDERED: hydrALAZINE 20 MG/ML VIAL SLOW IVP PRN (01:36)
[2021-09-16] MEDS ORDERED: hydrALAZINE 20 MG/ML VIAL SLOW IVP SCH (01:45)
[2021-09-16 02:05] VITALS: BP 152/79
[2021-09-16] MEDS: HUMULIN R 100 UNITS in Sodium Chloride 0.9% 100 ML IVPB SCH ×2 (02:08→07:25)
[2021-09-16] MEDS: Amiodarone 450 MG in Dextrose 5% in Water 250 ML IVPB SCH ×2 (02:44→20:28)
[2021-09-16 05:00] LABS: ALT (SGPT) 3641 U/L (8-55); AST (SGOT) 2043 U/L (5-34); Albumin 3.1 g/dL (3.5-5.0); Alkaline Phosphatase 216 U/L (40-110); Anion Gap 16 mmol/L (10-20); BUN (Urea Nitrogen) 36 mg/dL (9.8-20.1); Bilirubin, Total 1.1 mg/dL (0.2-1.2); Calc. Creatinine Clearance 63 mL/min (70-130); Calcium 7.9 mg/dL (7.8-10.44); Carbon Dioxide 23 mmol/L (22-29); Chloride 102 mmol/L (98-107); Estimated GFR 26; Globulin 3.4 g/dL (2.4-3.5); Glucose 278 mg/dL (70-105); Magnesium 1.9 mg/dL (1.6-2.6); Potassium 3.2 mmol/L (3.5-5.1); Protein, Total 6.5 g/dL (6.0-8.3); Sodium 138 mmol/L (136-145)
[2021-09-16 05:20] LABS: Band 4 % (5-11); Hemoglobin 11.5 g/dL (12.0-16.0); Lymphocytes 8 % (21-51); MDiff Complete? YES; Mean Corpuscular HGB CONC 32.2 g/dL (32.0-36.0); Mean Corpuscular Hemoglobin 27.2 pg (27.0-31.0); Mean Corpuscular Volume 84.5 fL (78.0-98.0); Mean Platelet Volume 7.5 fL (7.4-10.4); Metamyelocyte 1 % (0-0); Monocytes 1 % (0-10); Neutrophil 86 % (42-75); Nucleated RBC 2 % (0); Platelet Count 241 thou/uL (130-400); RBC Distribution Width 15.5 % (11.5-14.5); Red Blood Cell (RBC) Count 4.22 mill/uL (4.20-5.40); White Blood Cell (WBC) Count 18.6 thou/uL (4.8-10.8)
[2021-09-16] MEDS: Mometasone 200 MCG/Formoterol 5 MCG 120 PUFF INHALER INH SCH ×2 (06:35→21:55)
[2021-09-16] MEDS: Dextrose 5 % And 0.9 % NaCl 1,000 ML IV SCH ×2 (07:26→20:27)
[2021-09-16] MEDS: Levothyroxine Sodium 50 MCG TAB PO SCH (07:26)
[2021-09-16] MEDS: Hydrocortisone Sod Succ/PF 100 mg/2 ml Vial IVP SCH ×4 (07:28→23:53)
[2021-09-16] MEDS ORDERED: Magnesium 2 GM/50 ML(in water) 2 GM in Premix Bag 1 BAG IVPB SCH ×2 (08:00→08:15)
[2021-09-16] MEDS ORDERED: Potassium Chloride 20 MEQ TAB PO SCH (08:00)
[2021-09-16 08:09] LABS: Actual Bicarbonate (HCO3v) 20 mEq/L (22-28); Base Excess -4.7 mEq/L (-2.0 to +3.0); Calcium, Ionized (venous) 1.04 mmol/L (1.16-1.32); Chloride (VBG) 103 mmol/L (98-106); Hemoglobin (Hb) 12.7 g/dL (11.7-16.0); Potassium (VBG) 3.21 mmol/L (3.70-5.30); Sodium 135.6 mmol/L (133-146); pH (venous) 7.37 (7.32-7.43)
[2021-09-16] MEDS ORDERED: Milrinone Lactate/D5W 20 MG in Premix Bag 1 BAG IV SCH (08:15)
[2021-09-16 08:22] LABS: Glucose 207 mg/dL (70-105)
[2021-09-16] MEDS: Enoxaparin Sodium 60 MG/0.6 ML SYRINGE SC SCH ×2 (08:29→22:13)
[2021-09-16] MEDS: Terbinafine 1% 30 GM TUBE TOP SCH ×2 (08:30→22:09)
[2021-09-16] MEDS: traMADol HCl 50 MG TAB PO PRN (09:15)
[2021-09-16] MEDS ORDERED: Potassium Chloride 40 MEQ in Premix Bag 1 BAG IVPB SCH (09:15)
[2021-09-16] MEDS: Folic Acid 1 MG TAB PO SCH (09:15)
[2021-09-16] MEDS: Clopidogrel Bisulfate 75 MG TAB PO SCH (09:17)
[2021-09-16] MEDS: Ferrous Sulfate 325 MG TAB PO SCH ×2 (09:18→17:12)
[2021-09-16] MEDS: Pregabalin 75 MG CAP PO SCH ×2 (09:18→22:15)
[2021-09-16] MEDS: Aspirin 81 mg Enteric Coated Tablet PO SCH (09:19)
[2021-09-16] MEDS ORDERED: Insulin Glargine 30 UNITS/0.3 ML VIAL SC SCH ×3 (12:15→22:00)
[2021-09-16] MEDS: cefTRIAXone\\ROCEPHIN 2 GM in Sodium Chloride 0.9% 100 ML IVPB SCH (16:42)
[2021-09-16] MEDS ORDERED: HumaLOG 300 UNITS/3 ML VIAL SC SCH (17:00)
[2021-09-16] MEDS: HumaLOG 300 UNITS/3 ML VIAL SC PRN ×3 (17:03→23:54)
[2021-09-16 17:12] LABS: Lactic Acid 3.1 mmol/L (0.5-2.2)
[2021-09-16] MEDS: DOPamine 400 MG/D5W 250 ML 250 ML IVPB SCH (20:29)
[2021-09-16 21:47] LABS: Actual Bicarbonate (HCO3a) 19.2 mEq/L (22-28); Base Excess (BEa) -6.6 mEq/L (-2.0 to +3.0); CO2 Tension 39.5 mmHg (35.0-45.0); Calcium, Ionized (arterial) 1.04 mmol/L (1.12-1.30); Carboxyhemoglobin (COHb) 0.5 gm% (0.0-3.0); Hemoglobin (Hb) 12.7 g/dL (12.0-16.0); Potassium - ABG Lab 4.89 mmol/L (3.70-5.30); pH, Arterial 7.31 (7.35-7.45)
[2021-09-16 21:49] LABS: Puncture Site LRA
[2021-09-16] MEDS ORDERED: Racepinephrine 2.25% 0.5 ML NEB ONE ×2 (21:54→21:55)
[2021-09-16] MEDS: Cholecalciferol 1,000 UNITS (25 MCG) TAB PO SCH (22:10)
[2021-09-16 22:14] LABS: Anion Gap 19 mmol/L (10-20); BUN (Urea Nitrogen) 40 mg/dL (9.8-20.1); Calc. Creatinine Clearance 55 mL/min (70-130); Calcium 7.6 mg/dL (7.8-10.44); Carbon Dioxide 20 mmol/L (22-29); Chloride 99 mmol/L (98-107); Estimated GFR 22; Glucose 420 mg/dL (70-105); Magnesium 2.4 mg/dL (1.6-2.6); Phosphorus 3.2 mg/dL (2.3-4.7); Potassium 5.1 mmol/L (3.5-5.1); Sodium 133 mmol/L (136-145)
[2021-09-17 00:42] LABS: Lactic Acid 2.8 mmol/L (0.5-2.2)
[2021-09-17] MEDS: HumaLOG 300 UNITS/3 ML VIAL SC PRN (01:22)
[2021-09-17 02:11] LABS: Anion Gap 18 mmol/L (10-20); BUN (Urea Nitrogen) 39 mg/dL (9.8-20.1); Calc. Creatinine Clearance 52 mL/min (70-130); Calcium 7.5 mg/dL (7.8-10.44); Carbon Dioxide 20 mmol/L (22-29); Chloride 100 mmol/L (98-107); Estimated GFR 21; Glucose 430 mg/dL (70-105); Potassium 4.7 mmol/L (3.5-5.1); Sodium 133 mmol/L (136-145)
[2021-09-17] MEDS ORDERED: CCU Insulin Drip FS ONE (02:29)
[2021-09-17] MEDS ORDERED: Potassium Chloride 20 MEQ in Premix Bag 1 BAG IVPB SCH (02:45)
[2021-09-17] MEDS ORDERED: HUMULIN R 100 UNITS in Sodium Chloride 0.9% 100 ML IVPB SCH ×2 (02:45→03:15)
[2021-09-17] MEDS: Hydrocortisone Sod Succ/PF 100 mg/2 ml Vial IVP SCH ×2 (05:54→12:43)
[2021-09-17] MEDS: Levothyroxine Sodium 50 MCG TAB PO SCH (05:54)
[2021-09-17] MEDS: EPINEPHrine 4 MG in Dextrose 5% in Water 250 ML IV SCH ×3 (06:09→11:11)
[2021-09-17 06:58] LABS: Hemoglobin 11.5 g/dL (12.0-16.0); Mean Corpuscular HGB CONC 32.1 g/dL (32.0-36.0); Mean Corpuscular Hemoglobin 27.2 pg (27.0-31.0); Mean Corpuscular Volume 84.7 fL (78.0-98.0); Mean Platelet Volume 7.9 fL (7.4-10.4); Platelet Count 279 thou/uL (130-400); RBC Distribution Width 15.9 % (11.5-14.5); Red Blood Cell (RBC) Count 4.21 mill/uL (4.20-5.40); White Blood Cell (WBC) Count 25.9 thou/uL (4.8-10.8)
[2021-09-17 06:59] LABS: Anisocytosis SLIGHT = 6-15 cells (100X) (0-5/hpf); Band 2 % (5-11); Lymphocytes 10 % (21-51); MDiff Complete? YES; Monocytes 6 % (0-10); Neutrophil 82 % (42-75); Nucleated RBC 3 % (0)
[2021-09-17 07:03] LABS: ALT (SGPT) 2540 U/L (8-55); AST (SGOT) 376 U/L (5-34); Alkaline Phosphatase 228 U/L (40-110); Anion Gap 17 mmol/L (10-20); BUN (Urea Nitrogen) 39 mg/dL (9.8-20.1); Calc. Creatinine Clearance 52 mL/min (70-130); Calcium 7.7 mg/dL (7.8-10.44); Carbon Dioxide 20 mmol/L (22-29); Chloride 101 mmol/L (98-107); Estimated GFR 21; Globulin 3.4 g/dL (2.4-3.5); Glucose 284 mg/dL (70-105); Magnesium 2.4 mg/dL (1.6-2.6); Potassium 4.4 mmol/L (3.5-5.1); Protein, Total 6.4 g/dL (6.0-8.3); Sodium 134 mmol/L (136-145)
[2021-09-17] MEDS ORDERED: Insulin Glargine 30 UNITS/0.3 ML VIAL SC SCH ×5 (09:00→21:00)
[2021-09-17] MEDS ORDERED: HumaLOG 300 UNITS/3 ML VIAL SC PRN ×2 (09:15)
[2021-09-17] MEDS ORDERED: Milrinone 20 MG in Sodium Chloride 0.9% 100 ML IVPB SCH (09:30)
[2021-09-17] MEDS: Mometasone 200 MCG/Formoterol 5 MCG 120 PUFF INHALER INH SCH (09:50)
[2021-09-17] MEDS ORDERED: Chlorothiazide Sodium 500 MG VIAL IV SCH (10:00)
[2021-09-17] MEDS ORDERED: Sterile Water 10 ML VIAL FS SCH (10:00)
[2021-09-17 10:23] LABS: Lactic Acid 2.5 mmol/L (0.5-2.2)
[2021-09-17 10:25] LABS: Anion Gap 18 mmol/L (10-20); BUN (Urea Nitrogen) 41 mg/dL (9.8-20.1); Calc. Creatinine Clearance 55 mL/min (70-130); Calcium 7.9 mg/dL (7.8-10.44); Carbon Dioxide 21 mmol/L (22-29); Chloride 101 mmol/L (98-107); Estimated GFR 22; Glucose 170 mg/dL (70-105); Potassium 4.5 mmol/L (3.5-5.1); Sodium 135 mmol/L (136-145)
[2021-09-17] MEDS: Amiodarone 450 MG in Dextrose 5% in Water 250 ML IVPB SCH (11:11)
[2021-09-17] MEDS: Ferrous Sulfate 325 MG TAB PO SCH ×2 (11:23→17:07)
[2021-09-17] MEDS: Pregabalin 75 MG CAP PO SCH (11:23)
[2021-09-17] MEDS: Aspirin 81 mg Enteric Coated Tablet PO SCH (11:23)
[2021-09-17] MEDS: Terbinafine 1% 30 GM TUBE TOP SCH (11:24)
[2021-09-17] MEDS: Enoxaparin Sodium 60 MG/0.6 ML SYRINGE SC SCH (11:24)
[2021-09-17] MEDS: Clopidogrel Bisulfate 75 MG TAB PO SCH (11:24)
[2021-09-17] MEDS: Folic Acid 1 MG TAB PO SCH (11:24)
[2021-09-17] MEDS ORDERED: Furosemide 20 MG/2 ML VIAL SLOW IVP SCH (12:00)
[2021-09-17] MEDS ORDERED: Furosemide 40 MG/4 ML VIAL SLOW IVP SCH (12:00)
[2021-09-17] MEDS: HumaLOG 300 UNITS/3 ML VIAL SC SCH ×2 (12:39→17:07)
[2021-09-17 14:10] LABS: Anion Gap 17 mmol/L (10-20); BUN (Urea Nitrogen) 42 mg/dL (9.8-20.1); Calc. Creatinine Clearance 55 mL/min (70-130); Carbon Dioxide 21 mmol/L (22-29); Chloride 99 mmol/L (98-107); Estimated GFR 22; Glucose 150 mg/dL (70-105); Potassium 4.2 mmol/L (3.5-5.1); Sodium 133 mmol/L (136-145)
[2021-09-17] MEDS: cefTRIAXone\\ROCEPHIN 2 GM in Sodium Chloride 0.9% 100 ML IVPB SCH (14:17)
[2021-09-17 16:14] VITALS: TEMP 98.6
[2021-09-17] MEDS ORDERED: Hydrocortisone Sod Succ/PF 100 mg/2 ml Vial IVP SCH (22:00)
[2021-09-18] MEDS ORDERED: Insulin Glargine 30 UNITS/0.3 ML VIAL SC SCH (09:00)
[2021-09-19] MEDS ORDERED: predniSONE 20 MG TAB PO SCH (09:00)
[2021-09-20] MEDS ORDERED: predniSONE 5 MG TAB PO SCH (08:00)
== END 2021-09-17 18:01 | disposition short-term general hospital (02) | DRG 260 ==
LOC: ERS 14:49 → CCU 17:29
PROVIDERS: ADMIT Family Medicine; ATTEND Emergency Medicine
PROC: 3E04329 Introduction of Other Anti-infective into Central Vein, Percutaneous Approach (ICD-10-PCS; 2021-09-11)
PROC: 3E043XZ Introduction of Vasopressor into Central Vein, Percutaneous Approach (ICD-10-PCS; 2021-09-11)
PROC: 06HY33Z Insertion of Infusion Device into Lower Vein, Percutaneous Approach (ICD-10-PCS; 2021-09-11)
PROC: 02PA0MZ Removal of Cardiac Lead from Heart, Open Approach (ICD-10-PCS; principal; 2021-09-12)
PROC: 0JPT0PZ Removal of Cardiac Rhythm Related Device from Trunk Subcutaneous Tissue and Fascia, Open Approach (ICD-10-PCS; 2021-09-12)
PROC: 02HV33Z Insertion of Infusion Device into Superior Vena Cava, Percutaneous Approach (ICD-10-PCS; 2021-09-14)
PROC: B5181ZA Fluoroscopy of Superior Vena Cava using Low Osmolar Contrast, Guidance (ICD-10-PCS; 2021-09-14)
PROC: B548ZZA Ultrasonography of Superior Vena Cava, Guidance (ICD-10-PCS; 2021-09-14)
DX: T82.7XXA Infection and inflammatory reaction due to other cardiac and vascular devices, implants and grafts, initial encounter (principal); R65.21 Severe sepsis with septic shock; Z20.822 Contact with and (suspected) exposure to COVID-19; A41.4 Sepsis due to anaerobes; E10.10 Type 1 diabetes mellitus with ketoacidosis without coma; R57.0 Cardiogenic shock; G93.41 Metabolic encephalopathy; K72.00 Acute and subacute hepatic failure without coma; I50.23 Acute on chronic systolic (congestive) heart failure; N17.9 Acute kidney failure, unspecified; I48.92 Unspecified atrial flutter; E87.1 Hypo-osmolality and hyponatremia; E87.3 Alkalosis; Z68.43 Body mass index [BMI] 50.0-59.9, adult; Y83.1 Surgical operation with implant of artificial internal device as the cause of abnormal reaction of the patient, or of later complication, without mention of misadventure at the time of the procedure; I25.10 Atherosclerotic heart disease of native coronary artery without angina pectoris; M79.7 Fibromyalgia; J44.9 Chronic obstructive pulmonary disease, unspecified; E03.9 Hypothyroidism, unspecified; H54.8 Legal blindness, as defined in USA; M06.9 Rheumatoid arthritis, unspecified; M19.90 Unspecified osteoarthritis, unspecified site; F41.9 Anxiety disorder, unspecified; E66.01 Morbid (severe) obesity due to excess calories; G47.33 Obstructive sleep apnea (adult) (pediatric); R77.8 Other specified abnormalities of plasma proteins; E83.42 Hypomagnesemia; M25.551 Pain in right hip; E86.0 Dehydration; I48.91 Unspecified atrial fibrillation; E87.5 Hyperkalemia; G89.4 Chronic pain syndrome; I25.5 Ischemic cardiomyopathy; I10 Essential (primary) hypertension; I08.1 Rheumatic disorders of both mitral and tricuspid valves; I50.82 Biventricular heart failure; E10.51 Type 1 diabetes mellitus with diabetic peripheral angiopathy without gangrene; E10.319 Type 1 diabetes mellitus with unspecified diabetic retinopathy without macular edema; I25.2 Old myocardial infarction; Z95.1 Presence of aortocoronary bypass graft; Z98.890 Other specified postprocedural states; Z90.710 Acquired absence of both cervix and uterus; Z98.49 Cataract extraction status, unspecified eye; Z95.5 Presence of coronary angioplasty implant and graft; Z87.891 Personal history of nicotine dependence; Z88.1 Allergy status to other antibiotic agents; Z88.2 Allergy status to sulfonamides; Z88.8 Allergy status to other drugs, medicaments and biological substances; Z91.09 Other allergy status, other than to drugs and biological substances; Z79.899 Other long term (current) drug therapy; Z79.84 Long term (current) use of oral hypoglycemic drugs; Z79.4 Long term (current) use of insulin; Z79.82 Long term (current) use of aspirin; Z79.890 Hormone replacement therapy; Z79.52 Long term (current) use of systemic steroids; Z79.02 Long term (current) use of antithrombotics/antiplatelets; Z89.429 Acquired absence of other toe(s), unspecified side; Z91.19 Patient's noncompliance with other medical treatment and regimen
CPT/HCPCS: 33241; 33244; 36415; 36416; 36556; 36569; 36600; 51701; 71045; 74176; 76705; 80053; 80202; 81003; 81015; 82010; 82553; 82805; 83605; 83690; 83735; 83880; 84100; 84145; 84484; 85025; 85520; 85610; 85730; 87040; 87070; 87077; 87086; 87186; 87205; 93005; 93010; 93306; 94660; 96361; 96374; 96375; 96376; 97139; C1751; C9113; J0171; J0282; J0360; J0690; J0692; J0696; J1265; J1580; J1644; J1650; J1720; J1815; J1940; J2001; J2250; J2260; J2310; J2405; J3010; J3370; J3475; J3480; J3490; J7030; J7042; J7050; J7070; J7120; J7512; U0002

== ENCOUNTER 2022-05-18 11:25 | Outpatient (CLI) | payer OTHER | END 2022-05-18 11:26 | disposition home or self-care (01) | LOC: BICRAD 11:25 | PROVIDERS: ATTEND Family Medicine | DX: R07.81 Pleurodynia (principal); S22.41XA Multiple fractures of ribs, right side, initial encounter for closed fracture | CPT/HCPCS: 71111 ==

== ENCOUNTER 2023-03-12 11:35 | Inpatient (IN) | payer OTHER ==
[2023-03-12] MEDS ORDERED: Ondansetron PF 4 MG/2 ML Vial ONE (12:11)
[2023-03-12] MEDS ORDERED: NOREPINEPHRINE 8 MG/250 ML-D5W 250 ML ONE (12:22)
[2023-03-12 12:30] LABS: #Eosinphils 0.2 thou/uL (0.0-0.7); #Monocytes 0.5 thou/uL (0.11-0.59); #Neutrophils 5.5 thou/uL (1.40-6.50); %Basophils 0.4 % (0.0-1.0); %Eosinophils 2.7 % (0.0-10.0); %Lymphocytes 22.4 % (21.0-51.0); %Monocytes 5.9 % (0.0-10.0); %Neutrophils 67.4 % (42.0-75.0); Hematocrit 38.4 % (36.0-47.0); Hemoglobin 11.8 g/dL (12.0-16.0); Mean Corpuscular HGB CONC 30.7 g/dL (32.0-36.0); Mean Corpuscular Hemoglobin 28.3 pg (27.0-31.0); Mean Corpuscular Volume 92.1 fl (78.0-98.0); Mean Platelet Volume 10.2 fL (7.4-10.4); Platelet Count 177 10x3/uL (130-400); RBC Distribution Width 18.6 % (11.5-14.5); Red Blood Cell (RBC) Count 4.17 mill/uL (4.20-5.40); White Blood Cell (WBC) Count 8.1 10x3/uL (4.8-10.8)
[2023-03-12 12:57] LABS: ALT (SGPT) 21 U/L (8-55); AST (SGOT) 14 U/L (5-34); Albumin 3.1 g/dL (3.5-5.0); Alkaline Phosphatase 54 U/L (40-110); Anion Gap 13 mmol/L (10-20); BUN (Urea Nitrogen) 46 mg/dL (9.8-20.1); Bilirubin, Total 0.5 mg/dL (0.2-1.2); CK (CPK) 50 U/L (29-168); Calc. Creatinine Clearance 0 mL/min (70-130); Calcium 8.6 mg/dL (7.8-10.44); Carbon Dioxide 29 mmol/L (22-29); Chloride 98 mmol/L (98-107); Estimated GFR 31; Globulin 3.1 g/dL (2.4-3.5); Glucose 148 mg/dL (70-105); Potassium 4.2 mmol/L (3.5-5.1); Protein, Total 6.2 g/dL (6.0-8.3); Sodium 136 mmol/L (136-145)
[2023-03-12 13:00] LABS: Troponin I 0.059 ng/mL (< 0.028)
[2023-03-12] MEDS ORDERED: Sodium Chloride 0.9% 100 ML ONE (13:04)
[2023-03-12] MEDS ORDERED: Cefepime 2 GM VIAL ONE (13:04)
[2023-03-12 13:11] LABS: INR-International Normal Ratio 1.2; PTT 30.6 sec (22.9-36.1); Prothrombin Time 15.4 sec (12.0-14.7)
[2023-03-12] MEDS ORDERED: Vancomycin (BATCH) 2 GM/500 ML BAG ONE (13:48)
[2023-03-12] MEDS ORDERED: Acetaminophen 325 MG TAB PO PRN (14:02)
[2023-03-12] MEDS ORDERED: HumaLOG 300 UNITS/3 ML VIAL SC PRN (14:02)
[2023-03-12] MEDS ORDERED: Dextrose 50% Abboject 50 ML SYRINGE SLOW IVP PRN (14:02)
[2023-03-12] MEDS ORDERED: Glucagon 1 MG/ML KIT IM PRN (14:02)
[2023-03-12] MEDS ORDERED: Dextrose 5% in Water 1,000 ML IV PRN (14:02)
[2023-03-12] MEDS ORDERED: NOREPINEPHRINE 8 MG/250 ML-D5W 250 ML IVPB SCH (14:15)
[2023-03-12] MEDS ORDERED: Ipratropium/Albuterol 3 ML NEB NEB PRN (15:56)
[2023-03-12] MEDS ORDERED: Ondansetron ODT 4 MG TAB PO PRN (16:04)
[2023-03-12] MEDS ORDERED: Naloxone HCl 0.4 mg/ml Vial IV PRN (16:07)
[2023-03-12] MEDS ORDERED: Electrolyte Replacement Protocol 1 EACH FS SCH (16:10)
[2023-03-12] MEDS: HYDROcodone/Acetaminophen 10/325 mg Tablet PO PRN (16:34)
[2023-03-12] MEDS: Vancomycin (BATCH) 2 GM in Premix 1 BAG IVPB SCH (16:38)
[2023-03-12] MEDS: Cefepime 1 GM in Sodium Chloride 0.9% 100 ML IVPB SCH (16:38)
[2023-03-12] MEDS: HumaLOG 300 UNITS/3 ML VIAL SC SCH (18:12)
[2023-03-12 18:24] LABS: Bacteria/HPF None Seen HPF (None Seen); Bilirubin Negative (Negative); Blood, Urine Negative (Negative); CAUTI Indications for Culture Dysuria,urgency,freq; Clarity Clear (Clear); Glucose, Urine (Dipstick) Normal (Negative); Ketone, Urine Negative (Negative); Leukocyte Negative Leu/uL (Negative); Nitrite Negative (Negative); Protein, Urine (Dipstick) Negative (Neg-Trace); RBC/HPF 0-3 HPF (0-3); Specific Gravity, Urine 1.014 (1.002-1.036); Squamous Epithelial 0-3 HPF (0-3); Urobilinogen Normal mg/dL (Less than 2); WBC/HPF 0-3 HPF (0-3); pH, Urine 5.5 (5.0-9.0)
[2023-03-12 18:28] LABS: Urine Culture Reflex No No
[2023-03-12 18:30] LABS: Legionella Urinary Ag Negative (Negative); Strep pneumo Urine Ag NEGATIVE (NEGATIVE)
[2023-03-12 18:46] LABS: Troponin I 0.049 ng/mL (< 0.028)
[2023-03-12 18:48] LABS: SARS-CoV-2 NAA Rapid Test DETECTED (NotDetected)
[2023-03-12] MEDS: Mometasone 200 MCG/Formoterol 5 MCG 120 PUFF INHALER INH SCH (18:54)
[2023-03-12] MEDS: Apixaban 5 MG TAB PO SCH (20:41)
[2023-03-12] MEDS: Pantoprazole 40 MG VIAL IVP SCH (20:41)
[2023-03-12] MEDS: predniSONE 20 MG TAB PO SCH (20:41)
[2023-03-12] MEDS: Atorvastatin Calcium 40 MG TAB PO SCH (20:41)
[2023-03-12] MEDS: Cholecalciferol 1,000 UNITS (25 MCG) TAB PO SCH (20:41)
[2023-03-12] MEDS: Insulin Glargine 30 UNITS/0.3 ML VIAL SC SCH (20:45)
[2023-03-12] MEDS ORDERED: Sacubitril 24MG/Valsartan 26 MG TAB PO SCH (21:00)
[2023-03-12] MEDS ORDERED: predniSONE 5 MG TAB PO SCH (21:00)
[2023-03-12] MEDS ORDERED: Pantoprazole 40 MG VIAL IVP SCH (21:00)
[2023-03-12] MEDS ORDERED: Vancomycin 1 GM in Premix 1 BAG IVPB SCH (21:00)
[2023-03-12] MEDS: REMDESIVIR 200 MG in Sodium Chloride 0.9% 250 ML 210 ML IV SCH (21:27)
[2023-03-12] MEDS: Nystatin Powder 15 GM BOT TOP SCH (21:49)
[2023-03-12] MEDS: NYSTATIN TOP SCH (21:49)
[2023-03-13 04:50] LABS: #Eosinphils 0.3 thou/uL (0.0-0.7); #Monocytes 0.8 thou/uL (0.11-0.59); #Neutrophils 7.9 thou/uL (1.40-6.50); %Basophils 0.2 % (0.0-1.0); %Eosinophils 2.6 % (0.0-10.0); %Lymphocytes 23.8 % (21.0-51.0); %Monocytes 6.7 % (0.0-10.0); %Neutrophils 65.3 % (42.0-75.0); Hematocrit 34.7 % (36.0-47.0); Hemoglobin 10.7 g/dL (12.0-16.0); Mean Corpuscular HGB CONC 30.8 g/dL (32.0-36.0); Mean Corpuscular Hemoglobin 28.6 pg (27.0-31.0); Mean Corpuscular Volume 92.8 fl (78.0-98.0); Mean Platelet Volume 10.2 fL (7.4-10.4); Platelet Count 179 10x3/uL (130-400); RBC Distribution Width 18.7 % (11.5-14.5); Red Blood Cell (RBC) Count 3.74 mill/uL (4.20-5.40); White Blood Cell (WBC) Count 12.1 10x3/uL (4.8-10.8)
[2023-03-13 05:22] LABS: Hemoglobin A1c 8.8 % (4.0-6.0)
[2023-03-13 05:24] LABS: ALT (SGPT) 19 U/L (8-55); AST (SGOT) 18 U/L (5-34); Albumin 2.6 g/dL (3.5-5.0); Alkaline Phosphatase 51 U/L (40-110); Anion Gap 13 mmol/L (10-20); BUN (Urea Nitrogen) 41 mg/dL (9.8-20.1); Bilirubin, Total 0.5 mg/dL (0.2-1.2); Calc. Creatinine Clearance 92 mL/min (70-130); Calcium 8.1 mg/dL (7.8-10.44); Carbon Dioxide 25 mmol/L (22-29); Chloride 101 mmol/L (98-107); Estimated GFR 36; Globulin 2.8 g/dL (2.4-3.5); Glucose 123 mg/dL (70-105); Protein, Total 5.4 g/dL (6.0-8.3); Sodium 135 mmol/L (136-145)
[2023-03-13 06:39] LABS: Actual Bicarbonate (HCO3v) 24.1 mEq/L (22-28); Base Excess -0.9 mEq/L (-2.0 to +3.0); Calcium, Ionized (venous) 1.03 mmol/L (1.16-1.32); Chloride (VBG) 101 mmol/L (98-106); Hematocrit-VBG 36 % (36.0-47.0); Hemoglobin (Hb) 12.1 g/dL (11.7-16.0); Potassium (VBG) 3.95 mmol/L (3.70-5.30); Sodium 135 mmol/L (133-146); pH (venous) 7.383 (7.32-7.43)
[2023-03-13] MEDS: Levothyroxine 175 MCG TAB PO SCH (06:51)
[2023-03-13] MEDS: Albumin 25% 25 GM (100 mL) BOT IVPB SCH (07:03)
[2023-03-13] MEDS: Folic Acid 1 MG TAB PO SCH (08:45)
[2023-03-13] MEDS: Aspirin 81 mg Enteric Coated Tablet PO SCH (08:45)
[2023-03-13] MEDS: Ferrous Sulfate 325 MG TAB PO SCH (08:45)
[2023-03-13] MEDS ORDERED: Enoxaparin 40 MG (0.4 mL) SYRINGE SC SCH (09:00)
[2023-03-13] MEDS ORDERED: Pantoprazole 40 MG VIAL IVP SCH (09:00)
[2023-03-13] MEDS ORDERED: Spironolactone 25 MG TAB PO SCH (09:00)
[2023-03-13] MEDS: Pregabalin 50 MG CAP PO PRN (09:06)
[2023-03-13] MEDS: Lactated Ringer's 500 ML IV SCH (09:28)
[2023-03-13] MEDS: Lactated Ringer's 1,000 ML IV SCH (09:28)
[2023-03-13] MEDS: Vancomycin (BATCH) 1.5 GM in Premix 1 BAG IVPB SCH (09:59)
[2023-03-13] MEDS: Acetaminophen 325 MG TAB PO SCH (12:37)
[2023-03-13] MEDS: Ondansetron PF 4 MG/2 ML Vial IVP PRN (20:15)
[2023-03-13] MEDS: HumaLOG 300 UNITS/3 ML VIAL SC PRN (20:25)
[2023-03-13] MEDS: REMDESIVIR 100 MG in Sodium Chloride 0.9% 250 ML 230 ML IV SCH (20:47)
[2023-03-14] MEDS: Magnesium 2 GM/50 ML(in water) 2 GM in Premix 1 BAG IVPB SCH (01:24)
[2023-03-14 01:48] LABS: Troponin I 0.083 ng/mL (< 0.028)
[2023-03-14 01:51] LABS: ALT (SGPT) 19 U/L (8-55); AST (SGOT) 18 U/L (5-34); Albumin 3.7 g/dL (3.5-5.0); Alkaline Phosphatase 52 U/L (40-110); Anion Gap 16 mmol/L (10-20); BUN (Urea Nitrogen) 36 mg/dL (9.8-20.1); Calc. Creatinine Clearance 124 mL/min (70-130); Calcium 8.8 mg/dL (7.8-10.44); Carbon Dioxide 24 mmol/L (22-29); Chloride 102 mmol/L (98-107); Estimated GFR 52; Globulin 2.5 g/dL (2.4-3.5); Glucose 253 mg/dL (70-105); Magnesium 1.9 mg/dL (1.6-2.6); Protein, Total 6.2 g/dL (6.0-8.3); Sodium 137 mmol/L (136-145)
[2023-03-14 05:28] LABS: #Monocytes 0.4 thou/uL (0.11-0.59); %Basophils 0.2 % (0.0-1.0); %Monocytes 4.7 % (0.0-10.0); Hematocrit 33.9 % (36.0-47.0); Hemoglobin 10.7 g/dL (12.0-16.0); Mean Corpuscular HGB CONC 31.6 g/dL (32.0-36.0); Mean Corpuscular Hemoglobin 28.5 pg (27.0-31.0); Mean Corpuscular Volume 90.2 fl (78.0-98.0); Mean Platelet Volume 10.3 fL (7.4-10.4); Platelet Count 153 10x3/uL (130-400); Red Blood Cell (RBC) Count 3.76 mill/uL (4.20-5.40); White Blood Cell (WBC) Count 9.2 10x3/uL (4.8-10.8)
[2023-03-14 06:05] LABS: ALT (SGPT) 16 U/L (8-55); AST (SGOT) 18 U/L (5-34); Albumin 3.8 g/dL (3.5-5.0); Alkaline Phosphatase 57 U/L (40-110); Anion Gap 15 mmol/L (10-20); BUN (Urea Nitrogen) 33 mg/dL (9.8-20.1); Bilirubin, Total 0.9 mg/dL (0.2-1.2); Calc. Creatinine Clearance 119 mL/min (70-130); Calcium 8.9 mg/dL (7.8-10.44); Carbon Dioxide 22 mmol/L (22-29); Chloride 103 mmol/L (98-107); Estimated GFR 49; Globulin 2.5 g/dL (2.4-3.5); Glucose 228 mg/dL (70-105); Potassium 4.9 mmol/L (3.5-5.1); Protein, Total 6.3 g/dL (6.0-8.3); Sodium 135 mmol/L (136-145)
[2023-03-14 07:22] LABS: Troponin I 0.076 ng/mL (< 0.028)
[2023-03-14 09:25] LABS: Vancomycin, Trough 15.7 ug/mL
[2023-03-14] MEDS: Morphine 2 MG/ML VIAL SLOW IVP PRN (09:36)
[2023-03-14] MEDS ORDERED: Cefepime 2 GM in Sodium Chloride 0.9% 100 ML IVPB SCH (12:00)
[2023-03-14] MEDS: Sodium Chloride 0.9% 500 ML IV SCH (22:10)
[2023-03-14] MEDS: Sodium Chloride 0.9% 1,000 ML IV SCH (22:10)
[2023-03-15 05:00] LABS: #Monocytes 0.4 thou/uL (0.11-0.59); #Neutrophils 6.3 thou/uL (1.40-6.50); %Basophils 0.1 % (0.0-1.0); %Eosinophils 0.4 % (0.0-10.0); %Monocytes 4.7 % (0.0-10.0); %Neutrophils 77.9 % (42.0-75.0); Mean Corpuscular HGB CONC 31.3 g/dL (32.0-36.0); Mean Corpuscular Hemoglobin 28.6 pg (27.0-31.0); Mean Corpuscular Volume 91.4 fl (78.0-98.0); Mean Platelet Volume 10.2 fL (7.4-10.4); Platelet Count 170 10x3/uL (130-400); RBC Distribution Width 18.6 % (11.5-14.5); White Blood Cell (WBC) Count 8.1 10x3/uL (4.8-10.8)
[2023-03-15 05:30] LABS: ALT (SGPT) 20 U/L (8-55); AST (SGOT) 16 U/L (5-34); Albumin 3.3 g/dL (3.5-5.0); Alkaline Phosphatase 50 U/L (40-110); Anion Gap 10 mmol/L (10-20); BUN (Urea Nitrogen) 25 mg/dL (9.8-20.1); Bilirubin, Total 0.5 mg/dL (0.2-1.2); Calc. Creatinine Clearance 0 mL/min (70-130); Calcium 8.9 mg/dL (7.8-10.44); Carbon Dioxide 29 mmol/L (22-29); Chloride 106 mmol/L (98-107); Estimated GFR 70; Globulin 2.6 g/dL (2.4-3.5); Glucose 113 mg/dL (70-105); Potassium 4.6 mmol/L (3.5-5.1); Protein, Total 5.9 g/dL (6.0-8.3); Sodium 140 mmol/L (136-145)
[2023-03-15] MEDS: Hydrocortisone Sod Succ/PF 100 mg/2 ml Vial IVP SCH ×2 (08:09→11:19)
[2023-03-15] MEDS: Enoxaparin 120 MG/0.8 ML SYRINGE SC SCH (08:09)
[2023-03-15] MEDS: Guaifenesin DM 100-10/5 ML UDCUP PO PRN (23:50)
[2023-03-16 04:56] LABS: #Monocytes 0.3 thou/uL (0.11-0.59); %Basophils 0.2 % (0.0-1.0); %Lymphocytes 19.1 % (21.0-51.0); %Monocytes 6.1 % (0.0-10.0); %Neutrophils 73.7 % (42.0-75.0); Hematocrit 32.8 % (36.0-47.0); Hemoglobin 10.1 g/dL (12.0-16.0); Mean Corpuscular HGB CONC 30.8 g/dL (32.0-36.0); Mean Corpuscular Hemoglobin 28.5 pg (27.0-31.0); Mean Corpuscular Volume 92.4 fl (78.0-98.0); Mean Platelet Volume 10.4 fL (7.4-10.4); Platelet Count 152 10x3/uL (130-400); RBC Distribution Width 18.5 % (11.5-14.5); Red Blood Cell (RBC) Count 3.55 mill/uL (4.20-5.40); White Blood Cell (WBC) Count 5.4 10x3/uL (4.8-10.8)
[2023-03-16 05:27] LABS: ALT (SGPT) 16 U/L (8-55); AST (SGOT) 11 U/L (5-34); Albumin 3.2 g/dL (3.5-5.0); Alkaline Phosphatase 50 U/L (40-110); Anion Gap 11 mmol/L (10-20); BUN (Urea Nitrogen) 26 mg/dL (9.8-20.1); Bilirubin, Total 0.5 mg/dL (0.2-1.2); Calc. Creatinine Clearance 174 mL/min (70-130); Calcium 8.4 mg/dL (7.8-10.44); Carbon Dioxide 24 mmol/L (22-29); Chloride 110 mmol/L (98-107); Estimated GFR 76; Globulin 2.7 g/dL (2.4-3.5); Glucose 178 mg/dL (70-105); Potassium 4.8 mmol/L (3.5-5.1); Protein, Total 5.9 g/dL (6.0-8.3); Sodium 140 mmol/L (136-145)
[2023-03-16] MEDS: Levothyroxine 100 MCG SDV IVP SCH (10:21)
[2023-03-16] MEDS: Hydrocortisone Sod Succ/PF 100 mg/2 ml Vial IVP SCH (11:16)
[2023-03-17 05:21] LABS: #Monocytes 0.5 thou/uL (0.11-0.59); #Neutrophils 4.7 thou/uL (1.40-6.50); %Basophils 0.2 % (0.0-1.0); %Lymphocytes 18.7 % (21.0-51.0); %Monocytes 6.8 % (0.0-10.0); %Neutrophils 72.2 % (42.0-75.0); Hematocrit 34.8 % (36.0-47.0); Hemoglobin 10.8 g/dL (12.0-16.0); Mean Corpuscular Hemoglobin 28.4 pg (27.0-31.0); Mean Corpuscular Volume 91.6 fl (78.0-98.0); Mean Platelet Volume 10.3 fL (7.4-10.4); Platelet Count 187 10x3/uL (130-400); RBC Distribution Width 18.5 % (11.5-14.5); White Blood Cell (WBC) Count 6.6 10x3/uL (4.8-10.8)
[2023-03-17 05:42] LABS: ALT (SGPT) 16 U/L (8-55); AST (SGOT) 9 U/L (5-34); Albumin 3.3 g/dL (3.5-5.0); Alkaline Phosphatase 52 U/L (40-110); Anion Gap 11 mmol/L (10-20); BUN (Urea Nitrogen) 32 mg/dL (9.8-20.1); Bilirubin, Total 0.4 mg/dL (0.2-1.2); Calc. Creatinine Clearance 149 mL/min (70-130); Carbon Dioxide 26 mmol/L (22-29); Chloride 110 mmol/L (98-107); Estimated GFR 63; Glucose 126 mg/dL (70-105); Potassium 4.9 mmol/L (3.5-5.1); Protein, Total 6.3 g/dL (6.0-8.3); Sodium 142 mmol/L (136-145)
[2023-03-17] MEDS: Levothyroxine 175 MCG TAB PO SCH (06:23)
[2023-03-17] MEDS ORDERED: Torsemide 20 MG TAB PO SCH (11:00)
[2023-03-17] MEDS: Furosemide 40 MG (4 mL) VIAL SLOW IVP SCH ×2 (12:15→21:26)
[2023-03-17] MEDS: Hydrocortisone Sod Succ/PF 100 mg/2 ml Vial IVP SCH (15:16)
[2023-03-18] MEDS: Furosemide 40 MG (4 mL) VIAL SLOW IVP SCH (05:40)
[2023-03-18 06:38] LABS: ALT (SGPT) 15 U/L (8-55); AST (SGOT) 9 U/L (5-34); Albumin 3.1 g/dL (3.5-5.0); Alkaline Phosphatase 52 U/L (40-110); Anion Gap 12 mmol/L (10-20); BUN (Urea Nitrogen) 36 mg/dL (9.8-20.1); Bilirubin, Total 0.4 mg/dL (0.2-1.2); Calc. Creatinine Clearance 134 mL/min (70-130); Calcium 9.1 mg/dL (7.8-10.44); Carbon Dioxide 26 mmol/L (22-29); Chloride 109 mmol/L (98-107); Estimated GFR 52; Globulin 2.9 g/dL (2.4-3.5); Glucose 118 mg/dL (70-105); Potassium 4.6 mmol/L (3.5-5.1); Sodium 142 mmol/L (136-145)
[2023-03-18 07:43] LABS: #Basophils 0.1 thou/uL (0.0-0.2); #Monocytes 0.6 thou/uL (0.11-0.59); #Neutrophils 5.1 thou/uL (1.40-6.50); %Basophils 0.6 % (0.0-1.0); %Eosinophils 0.1 % (0.0-10.0); %Lymphocytes 21.7 % (21.0-51.0); %Monocytes 8.1 % (0.0-10.0); %Neutrophils 65.1 % (42.0-75.0); Hematocrit 36.3 % (36.0-47.0); Hemoglobin 11.2 g/dL (12.0-16.0); Mean Corpuscular HGB CONC 30.9 g/dL (32.0-36.0); Mean Corpuscular Hemoglobin 28.1 pg (27.0-31.0); Mean Platelet Volume 10.8 fL (7.4-10.4); Platelet Count 222 10x3/uL (130-400); RBC Distribution Width 18.6 % (11.5-14.5); Red Blood Cell (RBC) Count 3.99 mill/uL (4.20-5.40); White Blood Cell (WBC) Count 7.9 10x3/uL (4.8-10.8)
[2023-03-18] MEDS ORDERED: Torsemide 20 MG TAB PO SCH (09:00)
[2023-03-18] MEDS: Hydrocortisone Sod Succ/PF 100 mg/2 ml Vial IVP SCH (22:21)
[2023-03-19 06:20] LABS: #Monocytes 0.7 thou/uL (0.11-0.59); #Neutrophils 8.5 thou/uL (1.40-6.50); %Basophils 0.2 % (0.0-1.0); %Eosinophils 0.4 % (0.0-10.0); %Neutrophils 74.2 % (42.0-75.0); Hematocrit 36.3 % (36.0-47.0); Hemoglobin 11.4 g/dL (12.0-16.0); Mean Corpuscular HGB CONC 31.4 g/dL (32.0-36.0); Mean Corpuscular Hemoglobin 28.6 pg (27.0-31.0); Mean Platelet Volume 10.3 fL (7.4-10.4); Platelet Count 244 10x3/uL (130-400); RBC Distribution Width 18.5 % (11.5-14.5); Red Blood Cell (RBC) Count 3.99 mill/uL (4.20-5.40); White Blood Cell (WBC) Count 11.4 10x3/uL (4.8-10.8)
[2023-03-19 06:52] LABS: ALT (SGPT) 14 U/L (8-55); AST (SGOT) 10 U/L (5-34); Alkaline Phosphatase 50 U/L (40-110); Anion Gap 13 mmol/L (10-20); BUN (Urea Nitrogen) 34 mg/dL (9.8-20.1); Bilirubin, Total 0.7 mg/dL (0.2-1.2); Calc. Creatinine Clearance 140 mL/min (70-130); Carbon Dioxide 26 mmol/L (22-29); Chloride 107 mmol/L (98-107); Estimated GFR 57; Globulin 2.9 g/dL (2.4-3.5); Glucose 212 mg/dL (70-105); Potassium 4.4 mmol/L (3.5-5.1); Protein, Total 5.9 g/dL (6.0-8.3); Sodium 142 mmol/L (136-145)
[2023-03-19] MEDS: Morphine 2 MG/ML VIAL SLOW IVP SCH (13:48)
[2023-03-19] MEDS: predniSONE 5 MG TAB PO SCH (16:42)
[2023-03-19] MEDS: Sacubitril 24MG/Valsartan 26 MG TAB PO SCH (21:16)
[2023-03-20 06:35] LABS: #Eosinphils 0.1 thou/uL (0.0-0.7); #Monocytes 0.7 thou/uL (0.11-0.59); #Neutrophils 6.5 thou/uL (1.40-6.50); %Basophils 0.3 % (0.0-1.0); %Eosinophils 0.5 % (0.0-10.0); %Monocytes 7.7 % (0.0-10.0); %Neutrophils 69.8 % (42.0-75.0); Hematocrit 35.5 % (36.0-47.0); Hemoglobin 11.1 g/dL (12.0-16.0); Mean Corpuscular HGB CONC 31.3 g/dL (32.0-36.0); Mean Corpuscular Hemoglobin 28.8 pg (27.0-31.0); Mean Corpuscular Volume 92.2 fl (78.0-98.0); Mean Platelet Volume 10.1 fL (7.4-10.4); Platelet Count 225 10x3/uL (130-400); RBC Distribution Width 18.9 % (11.5-14.5); Red Blood Cell (RBC) Count 3.85 mill/uL (4.20-5.40); White Blood Cell (WBC) Count 9.4 10x3/uL (4.8-10.8)
[2023-03-20 07:02] LABS: ALT (SGPT) 12 U/L (8-55); AST (SGOT) 10 U/L (5-34); Albumin 2.8 g/dL (3.5-5.0); Alkaline Phosphatase 48 U/L (40-110); Anion Gap 12 mmol/L (10-20); BUN (Urea Nitrogen) 25 mg/dL (9.8-20.1); Bilirubin, Total 0.6 mg/dL (0.2-1.2); Calc. Creatinine Clearance 179 mL/min (70-130); Calcium 8.8 mg/dL (7.8-10.44); Carbon Dioxide 25 mmol/L (22-29); Chloride 109 mmol/L (98-107); Estimated GFR 75; Globulin 2.8 g/dL (2.4-3.5); Glucose 216 mg/dL (70-105); Potassium 4.4 mmol/L (3.5-5.1); Protein, Total 5.6 g/dL (6.0-8.3); Sodium 142 mmol/L (136-145)
[2023-03-20] MEDS: Torsemide 20 MG TAB PO SCH (08:20)
[2023-03-20] MEDS: Spironolactone 25 MG TAB PO SCH (08:21)
[2023-03-20 12:03] VITALS: BMI 60.5
[2023-03-21 04:35] LABS: #Eosinphils 0.1 thou/uL (0.0-0.7); #Monocytes 0.7 thou/uL (0.11-0.59); #Neutrophils 6.3 thou/uL (1.40-6.50); %Basophils 0.3 % (0.0-1.0); %Eosinophils 1.2 % (0.0-10.0); %Lymphocytes 20.5 % (21.0-51.0); %Monocytes 7.4 % (0.0-10.0); %Neutrophils 66.8 % (42.0-75.0); Hematocrit 37.3 % (36.0-47.0); Hemoglobin 11.5 g/dL (12.0-16.0); Mean Corpuscular HGB CONC 30.8 g/dL (32.0-36.0); Mean Corpuscular Hemoglobin 28.5 pg (27.0-31.0); Mean Corpuscular Volume 92.6 fl (78.0-98.0); Platelet Count 233 10x3/uL (130-400); RBC Distribution Width 19.2 % (11.5-14.5); Red Blood Cell (RBC) Count 4.03 mill/uL (4.20-5.40); White Blood Cell (WBC) Count 9.4 10x3/uL (4.8-10.8)
[2023-03-21 05:52] LABS: ALT (SGPT) 11 U/L (8-55); AST (SGOT) 10 U/L (5-34); Albumin 2.8 g/dL (3.5-5.0); Alkaline Phosphatase 47 U/L (40-110); Anion Gap 11 mmol/L (10-20); BUN (Urea Nitrogen) 23 mg/dL (9.8-20.1); Bilirubin, Total 0.5 mg/dL (0.2-1.2); Calc. Creatinine Clearance 194 mL/min (70-130); Calcium 8.6 mg/dL (7.8-10.44); Carbon Dioxide 26 mmol/L (22-29); Chloride 108 mmol/L (98-107); Estimated GFR 85; Globulin 2.5 g/dL (2.4-3.5); Glucose 113 mg/dL (70-105); Potassium 3.4 mmol/L (3.5-5.1); Protein, Total 5.3 g/dL (6.0-8.3); Sodium 142 mmol/L (136-145)
[2023-03-21] MEDS: Potassium Chloride 20 MEQ TAB PO SCH (08:08)
[2023-03-22 05:52] LABS: #Basophils 0.1 thou/uL (0.0-0.2); #Eosinphils 0.1 thou/uL (0.0-0.7); #Monocytes 0.8 thou/uL (0.11-0.59); #Neutrophils 5.9 thou/uL (1.40-6.50); %Basophils 0.7 % (0.0-1.0); %Eosinophils 0.9 % (0.0-10.0); %Monocytes 8.5 % (0.0-10.0); %Neutrophils 64.3 % (42.0-75.0); Hematocrit 38.8 % (36.0-47.0); Hemoglobin 11.9 g/dL (12.0-16.0); Mean Corpuscular HGB CONC 30.7 g/dL (32.0-36.0); Mean Corpuscular Hemoglobin 28.2 pg (27.0-31.0); Mean Corpuscular Volume 91.9 fl (78.0-98.0); Mean Platelet Volume 10.7 fL (7.4-10.4); Platelet Count 220 10x3/uL (130-400); RBC Distribution Width 19.5 % (11.5-14.5); Red Blood Cell (RBC) Count 4.22 mill/uL (4.20-5.40); White Blood Cell (WBC) Count 9.2 10x3/uL (4.8-10.8)
[2023-03-22 06:10] LABS: ALT (SGPT) 15 U/L (8-55); AST (SGOT) 11 U/L (5-34); Albumin 2.8 g/dL (3.5-5.0); Alkaline Phosphatase 46 U/L (40-110); Anion Gap 12 mmol/L (10-20); BUN (Urea Nitrogen) 22 mg/dL (9.8-20.1); Bilirubin, Total 0.5 mg/dL (0.2-1.2); Calc. Creatinine Clearance 185 mL/min (70-130); Calcium 8.7 mg/dL (7.8-10.44); Carbon Dioxide 30 mmol/L (22-29); Chloride 105 mmol/L (98-107); Estimated GFR 83; Globulin 2.7 g/dL (2.4-3.5); Glucose 119 mg/dL (70-105); Potassium 3.9 mmol/L (3.5-5.1); Protein, Total 5.5 g/dL (6.0-8.3); Sodium 143 mmol/L (136-145)
[2023-03-23 06:10] LABS: #Eosinphils 0.1 thou/uL (0.0-0.7); #Monocytes 0.6 thou/uL (0.11-0.59); #Neutrophils 5.7 thou/uL (1.40-6.50); %Basophils 0.4 % (0.0-1.0); %Eosinophils 1.3 % (0.0-10.0); %Monocytes 7.1 % (0.0-10.0); %Neutrophils 69.3 % (42.0-75.0); Hematocrit 36.6 % (36.0-47.0); Hemoglobin 11.3 g/dL (12.0-16.0); Mean Corpuscular HGB CONC 30.9 g/dL (32.0-36.0); Mean Corpuscular Volume 90.8 fl (78.0-98.0); Mean Platelet Volume 10.2 fL (7.4-10.4); Platelet Count 183 10x3/uL (130-400); RBC Distribution Width 19.2 % (11.5-14.5); Red Blood Cell (RBC) Count 4.03 mill/uL (4.20-5.40); White Blood Cell (WBC) Count 8.3 10x3/uL (4.8-10.8)
[2023-03-23 06:36] LABS: ALT (SGPT) 16 U/L (8-55); AST (SGOT) 16 U/L (5-34); Albumin 2.7 g/dL (3.5-5.0); Alkaline Phosphatase 44 U/L (40-110); Anion Gap 10 mmol/L (10-20); BUN (Urea Nitrogen) 24 mg/dL (9.8-20.1); Bilirubin, Total 0.5 mg/dL (0.2-1.2); Calc. Creatinine Clearance 173 mL/min (70-130); Calcium 8.4 mg/dL (7.8-10.44); Carbon Dioxide 33 mmol/L (22-29); Chloride 103 mmol/L (98-107); Estimated GFR 76; Globulin 2.6 g/dL (2.4-3.5); Glucose 228 mg/dL (70-105); Potassium 3.8 mmol/L (3.5-5.1); Protein, Total 5.3 g/dL (6.0-8.3); Sodium 142 mmol/L (136-145)
[2023-03-23] MEDS: Torsemide 20 MG TAB PO SCH (09:07)
[2023-03-23] MEDS: Spironolactone 25 MG TAB PO SCH (09:08)
[2023-03-23 13:05] VITALS: BP 130/69; TEMP 97.8
== END 2023-03-23 15:57 | disposition home or self-care (01) | DRG 871 ==
LOC: ERS 11:35 → CCU 14:07 → T4-A 03-16 12:46
PROVIDERS: ADMIT Family Medicine; ATTEND Family Medicine
PROC: 3E033XZ Introduction of Vasopressor into Peripheral Vein, Percutaneous Approach (ICD-10-PCS; principal; 2023-03-12)
PROC: 3E03329 Introduction of Other Anti-infective into Peripheral Vein, Percutaneous Approach (ICD-10-PCS; 2023-03-12)
PROC: XW033E5 Introduction of Remdesivir Anti-infective into Peripheral Vein, Percutaneous Approach, New Technology Group 5 (ICD-10-PCS; 2023-03-12)
PROC: 30233J1 Transfusion of Nonautologous Serum Albumin into Peripheral Vein, Percutaneous Approach (ICD-10-PCS; 2023-03-13)
PROC: 5A09457 Assistance with Respiratory Ventilation, 24-96 Consecutive Hours, Continuous Positive Airway Pressure (ICD-10-PCS; 2023-03-13)
DX: A41.89 Other specified sepsis (principal); I21.A1 Myocardial infarction type 2; R65.21 Severe sepsis with septic shock; J12.82 Pneumonia due to coronavirus disease 2019; U07.1 COVID-19; J96.01 Acute respiratory failure with hypoxia; I50.22 Chronic systolic (congestive) heart failure; N17.9 Acute kidney failure, unspecified; E24.9 Cushing's syndrome, unspecified; Z68.43 Body mass index [BMI] 50.0-59.9, adult; E10.9 Type 1 diabetes mellitus without complications; I25.10 Atherosclerotic heart disease of native coronary artery without angina pectoris; I11.0 Hypertensive heart disease with heart failure; E78.5 Hyperlipidemia, unspecified; G47.33 Obstructive sleep apnea (adult) (pediatric); E03.9 Hypothyroidism, unspecified; I87.8 Other specified disorders of veins; E66.01 Morbid (severe) obesity due to excess calories; M79.7 Fibromyalgia; R53.81 Other malaise; E86.0 Dehydration; M06.9 Rheumatoid arthritis, unspecified; J44.9 Chronic obstructive pulmonary disease, unspecified; Z79.899 Other long term (current) drug therapy; Z79.82 Long term (current) use of aspirin; Z95.1 Presence of aortocoronary bypass graft; Z95.810 Presence of automatic (implantable) cardiac defibrillator; Z79.890 Hormone replacement therapy; Z88.2 Allergy status to sulfonamides; Z88.8 Allergy status to other drugs, medicaments and biological substances; Z90.710 Acquired absence of both cervix and uterus; Z98.890 Other specified postprocedural states; Z95.5 Presence of coronary angioplasty implant and graft; Z98.49 Cataract extraction status, unspecified eye
CPT/HCPCS: 0241U; 36415; 36416; 36556; 71045; 80053; 80202; 81001; 82533; 82550; 82805; 83036; 83605; 83735; 83880; 84145; 84484; 85025; 85610; 85730; 87040; 87077; 87081; 87149; 87449; 87899; 93005; 93010; 93306; 94664; 96365; 96374; 96375; 97139; C9113; J0248; J0692; J1650; J1720; J1815; J1940; J2272; J2405; J3370; J3475; J3490; J7030; J7050; J7120; J7512; P9047